=== PATIENT | male | born 1965 | race Caucasian/White ===

== ENCOUNTER 2018-05-18 14:03 | Emergency (ER) | payer MEDICAID, SELFPAY ==
[2018-05-18 14:07] VITALS: BP 126/71; PULSE 103; RESP 22; TEMP 36.9; O2SAT 98
[2018-05-18 14:14] VITALS: BP 120/80; BP 126/71; PULSE 103; PULSE 121; RESP 22; TEMP 36.9; O2SAT 98
--- NOTE | 2018-05-18 14:27 | ED.GENADUL_ITS ---
Disposition Clinical Impression: Diarrhea, Dehydration Disposition: HOME Condition: Stable Instructions: Acute Diarrhea (ED) Additional Instructions: follow up with your primary care provider in a week if symptoms continue if you have severe abdominal pain, or persistent vomit return to the emergency department Prescriptions: Ondansetron ODT [Zofran Odt] 4 mg PO Q8H PRN PRN #30 tabef PRN Reason: Nausea / Vomiting Medical Decision Making - Lab Data Results reviewed for labs ordered during visit: Yes - Medical Decision Making I suspect the patients diarrhea is from viral illness. He has no abdominal pain or distention and no n/v so doubt sbo at this time and no ruq pain or pain anywhere so doubt entities such as hepatitis, pancreatitis cholceystitis or other surgical pathology. No risk factors for c diff and given symptoms of diarrhea started stool studies not indicated. Will give IVF and nausea medicine and eval for electrolyte abnormalities and reassess. patients labs unremarkable, mild leukoctysos which could be from a viral gastroenteritis and mild low potassium and magnesium. STill no abdominal pain, do not feel further imaging indicated at this time. Will d/c home and have him f /u with pcp, return precautions given - Differential Diagnosis gastroenteritis, colitis, enteritis History of Present Illness - General Chief complaint: Nausea/Vomit/Diar Stated complaint: DEHYDRATION/DIARRHEA Time Seen by Provider: 05/18/18 14:06 Source: patient Mode of arrival: ambulatory Limitations: no limitations - History of Present Illness Initial comments: 53 yo male who states he has hx of gerd and intermittent stomach cramping comes in with loose stools that started today. He states and saturday he had nausea and this is not abnormal for him to get. He started feeling better last night but this morning has had watery stools and feels dehydrated so came here. Still has nausea now, no vomit, no fevers, no recent travel or abx use. He has no abdominal tenderness on exam or distention MD Complaint: diarrhea Onset/Timin -: hour(s) Location: abdomen Consistency: constant Improves with: none Worsens with: none Associated Symptoms: nausea/vomiting Treatments Prior to Arrival: none - Related Data Fluticasone Propionate [Flovent 110MCG] 2 puff IH BID PRN 04/05/14 Ibuprofen 800 mg PO TID PRN #20 tablet 07/07/14 Albuterol Sulfate [Proair Hfa] 1 - 2 puff IH Q6H PRN inhaler 01/07/17 Amitriptyline [Elavil] 10 mg PO HS 01/07/17 Pantoprazole Sodium [Protonix] 40 mg PO DAILY packet 01/07/17 Valacyclovir HCl [Valacyclovir] 2,000 mg PO BID PRN tab-cap 01/07/17 Vardenafil HCl [Levitra] 10 mg PO DAILY PRN tab-cap 01/07/17 Bacitracin 1 gm TP BID 14 Days oint...g. 03/30/18 Ondansetron ODT [Zofran Odt] 4 mg PO Q8H PRN PRN #30 tabef 05/18/18 Allergies Allergy/AdvReac Type Severity Reaction Status Date / Time No Known Allergies Allergy Unverified 03/30/18 17:17 Review of Systems Constitutional: denies: fever Respiratory: denies: shortness of breath Cardiovascular: denies: chest pain Gastrointestinal: nausea, diarrhea. denies: vomiting Skin: denies: rash Neurological: denies: headache Comment: All other systems reviewed and negative Past Medical History - Past Medical History Medical history: asthma - Social History Smoking status: never smoker Alcohol use: none Drug use: none General Exam - General Limitations: no limitations General appearance: alert, in no apparent distress - Head Head exam: Present: atraumatic - Eye Eye exam: Present: normal apperance - ENT ENT exam: Present: mucous membranes moist - Neck Neck exam: Present: normal inspection - Respiratory Respiratory exam: Absent: respiratory distress - Cardiovascular Cardiovascular Exam: Present: regular rate, other (Hr 88 on my exam) - GI/Abdominal GI/Abdominal exam: Present: soft. Absent: distended, tenderness, guarding, rebound, rigid - Extremities Exam Extremities exam: Present: normal inspection. Absent: pedal edema - Neurological Exam Neurological exam: Present: alert, oriented X3 - Skin Skin exam: Present: warm Course Vital Signs - 24 hr 05/18/18 05/18/18 14:07 14:14 Temperature 98.4 F 98.4 F Pulse 103 H 103 H Pulse [Standing 121 H ] Respiratory 22 22 Rate Blood Pressure 126/71 126/71 Blood Pressure 120/80 [Standing] Pulse Oximetry 98 98
[2018-05-18] MEDS: Ondansetron 4 MG/2 ML VIAL IVP (14:42)
[2018-05-18] MEDS: Normal Saline 1,000 ML 1000 ML IV (14:42)
[2018-05-18 15:00] LABS: Abs Immature Grans 0.06 k/cumm (0.0-0.09); Absolute Basophil Count 0.04 k/cumm (0.0-0.2); Absolute Eosinophil Count 0.07 k/cumm (0.0-0.7); Absolute Monocyte Count 1.54 k/cumm (0.11-0.7); Absolute Neutrophil Count 11.89 k/cumm (1.2-6.7); Basophils % 0.3; Eosinophils % 0.5; HCT 46.2 % (40.0-50.0); HGB 16.1 g/dL (13.5-17.5); Immature Grans % 0.4; Lymphocytes % 6.2; Mean Corp. HGB Concentration 34.8 g/dL (32.0-36.0); Mean Corpuscular Hemoglobin 30.8 pg (27.0-33.0); Mean Corpuscular Volume 88.5 fL (80-95); Mean Platelet Volume 9.9 fL (8.0-11.0); Monocytes % 10.6; Platelet Count 310 x1000/uL (130-400); RBC 5.22 m/cumm (4.50-6.00); RBC Distribution Width 13.4 % (11.8-14.1)
[2018-05-18 15:13] LABS: ALT 22 U/L (12-78); AST 17 U/L (15-37); Albumin 3.9 g/dL (3.4-5.0); Alkaline Phosphatase 84 U/L (46-116); Anion Gap 11.4 mmol/L (3-11); BUN 17 mg/dL (7-18); Bilirubin, Total 1.9 mg/dL (0.2-1.0); CO2 24.6 mmol/L (21.0-32.0); CREATININE 0.74 mg/dL (0.70-1.30); Calcium 8.5 mg/dL (8.5-10.1); Chloride 102 mmol/L (98-107); Glucose 101 mg/dL (70-100); Magnesium 1.6 mg/dL (1.8-2.4); Potassium 3.2 mmol/L (3.5-5.1); Sodium 138 mmol/L (136-145)
[2018-05-18 15:24] LABS: Diff Comment Diff Reviewed; RBC Morphology Normal
[2018-05-18 15:33] VITALS: BP 120/62; PULSE 80; RESP 16; TEMP 37; O2SAT 98
== END 2018-05-18 15:38 | disposition home or self-care (01) ==
PROVIDERS: Emergency Provider Emergency Medicine; PCP Nurse Practitioner Family
DX: R19.7 Diarrhea, unspecified (principal); E86.0 Dehydration
CPT/HCPCS: 36415; 80053; 96361; 96374; 99284; 83735; 85025; J2405

== ENCOUNTER 2018-07-16 07:32 | Inpatient (IN) | payer MEDICAID, SELFPAY ==
[2018-07-16 07:39] VITALS: BP 136/74; PULSE 71; RESP 22; TEMP 36.4; O2SAT 100
--- NOTE | 2018-07-16 08:11 | W.ED.GENAD ---
Discharge Plan Disposition Patient Disposition: [facility] INPATIENT Discharge Details Chief Complaint: Nk/Back Pain Clinical Impression: Nephrolithiasis Reason For Visit: NEPHROLITHIASIS Admit Date/Time: 07/16/18 14:19 Admit Provider: Luis White Attending Provider: Luis White Primary Care Provider: Alexia Perez ED Provider: Natalia Matthews Discharge Data Discharge Date/Time-TO BE ENTERED AT DEPARTURE: 07/16/18 15:12 Medical Decision Making Dennis Braun is a 53-year-old man with history of asthma and chronic low back pain present who presented to the emergency department this morning with exacerbation of his usual back pain that woke him from sleep at 1:00 this morning; features are exactly typical of his usual acute on chronic low back pain exacerbations. On exam patient is well and nontoxic-appearing. He is able to walk slowly but steadily. Motor function of his lower extremities is 5 out of 5, and sensation of his lower extremities is intact and symmetric. Concern for acute on chronic lower back pain. Exam/history not consistent with cord compression/cauda equina syndrome, sepsis, acute emergent intra-abdominal process. Plan for steroid burst, Flexeril, post void residual, ua. Patient with moderate blood on UA. Patient reports history of kidney stones in the past, but states that this does not feel typical of his usual kidney stones. Patient reports mild to moderate bilateral CVA tenderness on repeat exam. Given vomiting, hematuria will plan for CT for rule out kidney stone. CT positive for 4.5 right ureterolithiasis with dilatation of the ureter and bilateral severe hydronephrosis. Plan for IV fluid hydration, IV pain control, screening labs, urology consult. Creatinine within normal limits. I discussed patient presentation results with Dr. golden of urology [facility], who recommended that patient had stenting done. There is OR availability and very tomorrow morning. Dr. golden stated that there is no availability for transfer to [facility] given lack of beds, and that it would be appropriate for procedure to be performed here tomorrow. Plan for admission given vomiting and the pain for further monitoring. Dr. Woods's office consulted and made aware, he is not available for consult today. Medical Records Medical records reviewed: Yes I reviewed the patient's medical records. HPI General Mode of arrival: ambulatory. Date/Time Provider Initiated Documentation: 07/16/18 08:11. Limitations to Documentation: no limitations. Information obtained by: patient. HPI Narrative: Dennis Braun is a 53-year-old man with history of asthma and chronic low back presenting to the emergency department with back pain. 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 He reports that he has had intermittent exacerbations of his pain. Patient reports that he woke up at 1:00 this morning with pain in his lower back, worse on the right side. He reports the pain is exactly typical in severity, location, and quality as his usual exacerbations of back pain. He reports the last time his back pain was like this it was 4 years ago. He completed a course of physical therapy for low back pain approximately 6 months ago. 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 Patient reports that he has taken oxygen this morning for the pain and no other pain meds. He reports that he vomited this morning after taking the naproxen, and states that he has had vomiting the past from his back pain. He denies any other pain, fevers, shortness of breath, cough, rash, numbness, tingling, weakness the extremities. He denies any changes in urinary function. Patient reports that he had 2 bowel movements this morning that were normal. Denies IV drug use or being immunocompromised. No blood thinners. Previously in his usual state of health. Has been eating and drinking normally. Related Data Home Medications Medication Instructions Recorded Confirmed fluticasone [Flovent HFA] 2 puff INHALATION BID PRN 04/05/14 07/16/18 albuterol sulfate [ProAir HFA] 1 - 2 puff INHALATION Q6H PRN 01/07/17 07/16/18 inhaler amitriptyline 10 mg PO HS 01/07/17 05/18/18 pantoprazole [Protonix] 40 mg PO DAILY packet 01/07/17 07/16/18 valacyclovir 2,000 mg PO BID PRN tab-cap 01/07/17 07/16/18 vardenafil [Levitra] 10 mg PO DAILY PRN tab-cap 01/07/17 07/16/18 ondansetron 4 mg PO Q8H PRN PRN #30 tabef 05/18/18 07/16/18 naproxen 500 mg PO BID 07/16/18 07/16/18 Previous Rx's Medication Instructions Recorded ondansetron 4 mg PO Q8H PRN PRN #30 tabef 05/18/18 Allergies Allergy/AdvReac Type Severity Reaction Status Date / Time No Known Allergies Allergy Unverified 07/16/18 07:41 General Stated Complaint: Nk/Back Pain FRANKIE: 4 Review of Systems Review of Systems Constitutional: denies fevers Eyes: denies eye pain ENT: denies facial pain, dental pain, sore throat Cardiovascular: denies chest pain, edema Respiratory: denies SOB, cough GI: denies abdominal pain, vomiting, diarrhea : denies flank pain, dysuria MSK: denies neck pain, arthralgias, myalgias; reports back pain Skin: denies rash Neuro: denies headaches, lightheadedness, weakness PFSH Family History Mother Colon cancer Father Myocardial infarction CHF (congestive heart failure) Sister Melanoma Medical History Anxiety Asthma Chronic low back pain Cold sore Depression GERD (gastroesophageal reflux disease) H/O steroid therapy Hemorrhoids, external Kidney stones Knee pain, bilateral Pre-hypertension Wheezing Social History household members: other details: lives alone lives independently: Yes 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 Smoking/Tobacco Use Status: Former Tobacco Use pack-years: 2 alcohol intake: never substance use type: does not use Surgical History H/O blepharoplasty (Acute) History of kidney surgery (Acute) History of testicular surgery (Acute) Exam Narrative Exam Narrative: Constitutional: well and non-toxic but uncomfortable appearing, pleasant, conversing normally HENT: head atraumatic, normocephalic normal inspection, mucous membranes moist Eyes: conjunctiva normal, sclera normal, pupils 3mm b/l Neck: no stridor, normal ROM, trachea midline Chest: normal inspection Resp: normal work of breathing, LCTAB Cardio: normal rate, normal rhythm, no murmur appreciated GI: abdomen soft, non-tender, non-distended Back: normal inspection, no rash, NTTP. straight leg test pos on right Skin: warm, dry, normal color, no rash Neuro: alert, not altered, grossly non-focal, normal tone, motor 5/5 b/l LEs, sensation intact and symmetric b/l LEs Ext: no edema Psych: normal mood, normal affect, normal behavior Course Vital Signs Temperature 36.4 C L 07/16/18 07:39 Pulse 71 07/16/18 07:39 Respiratory Rate 22 07/16/18 07:39 Blood Pressure 136/74 07/16/18 07:39 Pulse Oximetry 100 07/16/18 07:39 Temperature 36.4 C L 07/16/18 07:39 Temperature Source Skin 07/16/18 07:39 Pulse 71 07/16/18 07:39 Respiratory Rate 22 07/16/18 07:39 Respiratory Effort 07/16/18 07:44 Blood Pressure 136/74 07/16/18 07:39 Blood Pressure Position Sitting 07/16/18 07:39 Pulse Oximetry 100 07/16/18 07:39 Oxygen Delivery Method Room Air 07/16/18 07:39 Oxygen Flow Rate 0 07/16/18 07:39 Pain Level 8 07/16/18 07:44
--- NOTE | 2018-07-16 08:30 | ED.GENADUL_ITS ---
Discharge Plan Disposition Patient Disposition: [facility] INPATIENT Discharge Details Chief Complaint: Nk/Back Pain Clinical Impression: Nephrolithiasis Reason For Visit: NEPHROLITHIASIS Admit Date/Time: 07/16/18 14:19 Admit Provider: Luis White Attending Provider: Luis White Primary Care Provider: Alexia Perez ED Provider: Natalia Matthews Discharge Data Discharge Date/Time-TO BE ENTERED AT DEPARTURE: 07/16/18 15:12 Medical Decision Making Dennis Braun is a 53-year-old man with history of asthma and chronic low back pain present who presented to the emergency department this morning with exacerbation of his usual back pain that woke him from sleep at 1:00 this morning; features are exactly typical of his usual acute on chronic low back pain exacerbations. On exam patient is well and nontoxic-appearing. He is able to walk slowly but steadily. Motor function of his lower extremities is 5 out of 5, and sensation of his lower extremities is intact and symmetric. Concern for acute on chronic lower back pain. Exam/history not consistent with cord compression/cauda equina syndrome, sepsis, acute emergent intra-abdominal process. Plan for steroid burst, Flexeril, post void residual, ua. Patient with moderate blood on UA. Patient reports history of kidney stones in the past, but states that this does not feel typical of his usual kidney stones. Patient reports mild to moderate bilateral CVA tenderness on repeat exam. Given vomiting, hematuria will plan for CT for rule out kidney stone. CT positive for 4.5 right ureterolithiasis with dilatation of the ureter and bilateral severe hydronephrosis. Plan for IV fluid hydration, IV pain control, screening labs, urology consult. Creatinine within normal limits. I discussed patient presentation results with Dr. golden of urology [facility], who recommended that patient had stenting done. There is OR availability and very tomorrow morning. Dr. golden stated that there is no availability for transfer to [facility] given lack of beds, and that it would be appropriate for procedure to be performed here tomorrow. Plan for admission given vomiting and the pain for further monitoring. Dr. Woods's office consulted and made aware, he is not available for consult today. Medical Records Medical records reviewed: Yes I reviewed the patient's medical records. HPI General Mode of arrival: ambulatory . Date/Time Provider Initiated Documentation: 07/16/18 08:11 . Limitations to Documentation: no limitations . Information obtained by: patient . HPI Narrative: Dennis Braun is a 53-year-old man with history of asthma and chronic low back presenting to the emergency department with back pain. 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 He reports that he has had intermittent exacerbations of his pain. Patient reports that he woke up at 1:00 this morning with pain in his lower back , worse on the right side. He reports the pain is exactly typical in severity, location, and quality as his usual exacerbations of back pain. He reports the last time his back pain was like this it was 4 years ago. He completed a course of physical therapy for low back pain approximately 6 months ago. 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 Patient reports that he has taken oxygen this morning for the pain and no other pain meds. He reports that he vomited this morning after taking the naproxen, and states that he has had vomiting the past from his back pain. He denies any other pain, fevers, shortness of breath , cough, rash, numbness, tingling, weakness the extremities. He denies any changes in urinary function. Patient reports that he had 2 bowel movements this morning that were normal. Denies IV drug use or being immunocompromised. No blood thinners. Previously in his usual state of health. Has been eating and drinking normally. Related Data Home Medications Medication Instructions Recorded Confirmed fluticasone [Flovent HFA] 2 puff INHALATION BID PRN 04/05/14 07/16/18 albuterol sulfate [ProAir HFA] 1 - 2 puff INHALATION Q6H PRN 01/07/17 07/16/18 inhaler amitriptyline 10 mg PO HS 01/07/17 05/18/18 pantoprazole [Protonix] 40 mg PO DAILY packet 01/07/17 07/16/18 valacyclovir 2,000 mg PO BID PRN tab-cap 01/07/17 07/16/18 vardenafil [Levitra] 10 mg PO DAILY PRN tab-cap 01/07/17 07/16/18 ondansetron 4 mg PO Q8H PRN PRN #30 tabef 05/18/18 07/16/18 naproxen 500 mg PO BID 07/16/18 07/16/18 Previous Rx's Medication Instructions Recorded ondansetron 4 mg PO Q8H PRN PRN #30 tabef 05/18/18 Allergies Allergy/AdvReac Type Severity Reaction Status Date / Time No Known Allergies Allergy Unverified 07/16/18 07:41 General Stated Complaint: Nk/Back Pain FRANKIE: 4 Review of Systems Review of Systems Constitutional: denies fevers Eyes: denies eye pain ENT: denies facial pain, dental pain, sore throat Cardiovascular: denies chest pain, edema Respiratory: denies SOB, cough GI: denies abdominal pain, vomiting, diarrhea : denies flank pain, dysuria MSK: denies neck pain, arthralgias, myalgias; reports back pain Skin: denies rash Neuro: denies headaches, lightheadedness, weakness PFSH Family History Mother Colon cancer Father Myocardial infarction CHF (congestive heart failure) Sister Melanoma Medical History Anxiety Asthma Chronic low back pain Cold sore Depression GERD (gastroesophageal reflux disease) H/O steroid therapy Hemorrhoids, external Kidney stones Knee pain, bilateral Pre-hypertension Wheezing Social History household members: other details: lives alone lives independently: Yes 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 Smoking/Tobacco Use Status: Former Tobacco Use pack-years: 2 alcohol intake: never substance use type: does not use Surgical History H/O blepharoplasty (Acute) History of kidney surgery (Acute) History of testicular surgery (Acute) Exam Narrative Exam Narrative: Constitutional: well and non-toxic but uncomfortable appearing, pleasant, conversing normally HENT: head atraumatic, normocephalic normal inspection, mucous membranes moist Eyes: conjunctiva normal, sclera normal, pupils 3mm b/l Neck: no stridor, normal ROM, trachea midline Chest: normal inspection Resp: normal work of breathing, LCTAB Cardio: normal rate, normal rhythm, no murmur appreciated GI: abdomen soft, non-tender, non-distended Back: normal inspection, no rash, NTTP. straight leg test pos on right Skin: warm, dry, normal color, no rash Neuro: alert, not altered, grossly non-focal, normal tone, motor 5/5 b/l LEs, sensation intact and symmetric b/l LEs Ext: no edema Psych: normal mood, normal affect, normal behavior Course Vital Signs Temperature 36.4 C L 07/16/18 07:39 Pulse 71 07/16/18 07:39 Respiratory Rate 22 07/16/18 07:39 Blood Pressure 136/74 07/16/18 07:39 Pulse Oximetry 100 07/16/18 07:39 Temperature 36.4 C L 07/16/18 07:39 Temperature Source Skin 07/16/18 07:39 Pulse 71 07/16/18 07:39 Respiratory Rate 22 07/16/18 07:39 Respiratory Effort 07/16/18 07:44 Blood Pressure 136/74 07/16/18 07:39 Blood Pressure Position Sitting 07/16/18 07:39 Pulse Oximetry 100 07/16/18 07:39 Oxygen Delivery Method Room Air 07/16/18 07:39 Oxygen Flow Rate 0 07/16/18 07:39 Pain Level 8 07/16/18 07:44
[2018-07-16] MEDS: predniSONE 20 MG TAB 40 MG PO (08:46)
[2018-07-16] MEDS: Acetaminophen 500 MG TAB 1000 MG PO (08:46)
[2018-07-16 08:58] LABS: Bilirubin Negative (Negative); Blood Moderate (Negative); Clarity Sl Cloudy; Glucose Negative (Negative); Ketones Trace mg/dL (Negative); Leukocyte Esterase Negative (Negative); Nitrite Negative (Negative); Specific Gravity >= 1.030 (1.005-1.025); Urobilinogen 0.2 EU/dL (Up TO 0.2)
[2018-07-16 09:04] LABS: Bacteria Rare HPF (Negative); C & S Indicated? No; Casts Negative LPF (Negative); Crystals Negative HPF (Negative); Epithelial Cells Negative HPF (Negative); Mucus Heavy (Negative); WBC 0-2 HPF (0-5)
--- NOTE | 2018-07-16 09:09 | DI.CT_ITS ---
SYMPTOMS/DIAGNOSIS: BILATERAL LOW BACK PAIN, HEMATURIA, ? STONE RENAL COLIC CT: A noncontrast enhanced CT examination was performed according to the usual protocol. There is considerable dilatation of the right ureter down to the level of a 4.5 mm distal ureteral calculus. The left ureter appears intact. There is no evidence of left ureterolithiasis. The mid and inferior portions of the liver, gallbladder, pancreas and spleen are intact. There is no evidence of bowel obstruction. A moderate quantity of scattered feces is noted throughout the colon. There is nothing to suggest an acute appendix. The bladder is decompressed. The prostate is somewhat enlarged. There is no evidence of free air or free fluid in the intraperitoneal space. There is no evidence of an aortic aneurysm. There are mild degenerative changes involving the lumbar spine. SUMMARY: Moderately severe bilateral hydronephrosis and nephrolithiasis. There is dilatation of the right ureter down to the level of a 4.5 mm distal ureteral calculus. There is no evidence of a left ureteral calculus or ureterectasis.
[2018-07-16 10:43] LABS: Abs Immature Grans 0.05 k/cumm (0.0-0.09); Absolute Basophil Count 0.04 k/cumm (0.0-0.2); Absolute Eosinophil Count 0.01 k/cumm (0.0-0.7); Basophils % 0.3; Eosinophils % 0.1; HCT 41.3 % (40.0-50.0); HGB 14.4 g/dL (13.5-17.5); Immature Grans % 0.3; Lymphocytes % 4.2; Mean Corp. HGB Concentration 34.9 g/dL (32.0-36.0); Mean Corpuscular Hemoglobin 30.3 pg (27.0-33.0); Mean Corpuscular Volume 86.9 fL (80-95); Mean Platelet Volume 9.6 fL (8.0-11.0); Monocytes % 7.5; Neutrophils % 87.6; Platelet Count 279 x1000/uL (130-400); RBC 4.75 m/cumm (4.50-6.00); RBC Distribution Width 13.4 % (11.8-14.1); White Blood Cell Count 14.85 k/cumm (4.4-10.8)
[2018-07-16 10:45] LABS: Absolute Lymphocyte Count 0.62 k/cumm (1.2-3.4); Absolute Monocyte Count 1.11 k/cumm (0.11-0.7); Absolute Neutrophil Count 13.01 k/cumm (1.2-6.7)
[2018-07-16] MEDS: Normal Saline 1,000 ML 1000 ML IV (10:48)
[2018-07-16] MEDS: Ondansetron 4 MG/2 ML VIAL IVP ×2 (11:01→13:54)
[2018-07-16 11:04] LABS: ALT 20 U/L (12-78); AST 14 U/L (15-37); Albumin 3.7 g/dL (3.4-5.0); Alkaline Phosphatase 76 U/L (46-116); Anion Gap 8.7 mmol/L (3-11); BUN 24 mg/dL (7-18); Bilirubin, Total 1.2 mg/dL (0.2-1.0); CO2 25.3 mmol/L (21.0-32.0); CREATININE 0.98 mg/dL (0.70-1.30); Calcium 8.1 mg/dL (8.5-10.1); Chloride 106 mmol/L (98-107); Glucose 115 mg/dL (70-100); Sodium 140 mmol/L (136-145); Total Protein 6.2 g/dL (6.4-8.2)
[2018-07-16] MEDS: HYDROmorphone 2 MG/ML VIAL 1 MG IVP (11:23)
[2018-07-16 15:39] VITALS: BP 121/76; PULSE 80; RESP 20; TEMP 36.4; O2SAT 96
--- NOTE | 2018-07-16 16:15 | W.PM.HP.N ---
Date of service: 07/16/18 Time of Service: 16:16 Assessment and Plan (1) Nephrolithiasis: Current visit: Yes Status: Chronic Bilateral, noted on Renal CT with bilateral hydronephrosis. The plan is for him to go to the OR tomorrow for stone extraction and stent placement with Dr. Woods. He has analgesics and antiemetics available for as needed use, IV fluids and he will be NPO after midnight for the procedure tomorrow. He will need further evaluation of the bilateral hydronephrosis. (2) GERD (gastroesophageal reflux disease): Current visit: Yes Status: Chronic Continue PPI therapy. (3) Depression: Current visit: Yes Status: Chronic He has taken antidepressants in the past. He currently takes amitriptyline PRN for sleep. (4) Asthma: Current visit: Yes Status: Chronic He describes asthma flares with dust and leaves. He has not used rescue inhaler in several months. (5) Back pain, chronic: Current visit: Yes Status: Acute He takes naproxen. Recently had PT for spasms. Not severe at present. Continue to monitor. (6) Heart murmur: Current visit: Yes Status: Acute He does not recall having a history of heart murmur. Further evaluation as an outpatient recommended. Will review outpatient records to determine if this has been documented in the past. (7) Discharge planning issues: Current visit: Yes Status: Acute He is a full code. This case was discussed with Dr. White who is in agreement. (8) DVT prophylaxis: Current visit: Yes Status: Acute Hold on lovenox for now, pending OR tomorrow. SCDs for DVT prophylaxis. History of Present Illness Chief Complaint: Back pain, N/V Narrative: Dennis Braun is a very pleasant 53-year-old male with a past medical history of nephrolithiasis (remote), chronic back pain, GERD and asthma. He presented to the emergency department today after he awoke early this morning with severe back pain. He does have chronic back pain and felt that this was related to back spasms which prompted his presentation to the emergency department. He went on to develop nausea and vomiting. He had no dysuria. He has urinary frequency at baseline. He believes that he had some hematuria over the last couple of weeks. In the emergency department he was noted to have moderate blood on urinalysis. He was noted to have mild to moderate bilateral CVA tenderness on exam. He was referred for Renal CT to rule out kidney stones. Renal CT revealed Moderately severe bilateral hydronephrosis and nephrolithiasis. There is dilatation of the right ureter down to the level of a 4.5 mm distal ureteral calculus. There is no evidence of a left ureteral calculus or ureterectasis. He was seen by Urology in the ED. The plan is for him to be admitted to the Med/surg floor for further treatment and management. He will go to the OR tomorrow to have the stone removed and stent placed by Dr. Woods. He will be NPO after midnight for the procedure. Review of Systems Constitutional Denies chills and Denies fever(s) Eyes Denies change in vision (wears glasses) Cardiovascular Denies chest pain, Denies rapid heart rate, Denies pedal edema, Denies palpitations and Denies dyspnea Respiratory Denies cough, Denies dyspnea and Denies wheezing Gastrointestinal Denies change in bowel habits, Reports nausea, Reports vomiting and Reports other (poor appetite, has not been eating or drinking today.) Genitourinary Reports hematuria (Has noticed some mild hematuria over the last couple of weeks.) and Reports flank pain (across back and around to abdomen.) Musculoskeletal Reports back pain (chronic, recently had PT for back pain. Takes naproxen which helps.) and Reports stiffness (knees. ) Psychiatric Reports anxiety and Reports depression (tried antidepressant but made symptoms worse.) Endocrine Denies palpitations Allergic/Immunologic Denies wheezing and Reports other (asthma flares with dust and leaves.) PFSH Family History Mother Colon cancer Father Myocardial infarction CHF (congestive heart failure) Sister Melanoma Medical History Anxiety Asthma Chronic low back pain Cold sore Depression GERD (gastroesophageal reflux disease) H/O steroid therapy Hemorrhoids, external Kidney stones Knee pain, bilateral Pre-hypertension Wheezing Social History household members: other details: lives alone lives independently: Yes 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 Smoking/Tobacco Use Status: Former Tobacco Use pack-years: 2 alcohol intake: never substance use type: does not use Surgical History H/O blepharoplasty (Acute) History of kidney surgery (Acute) History of testicular surgery (Acute) Meds Home Medications Medication Instructions Recorded Confirmed Type fluticasone [Flovent HFA] 2 puff INHALATION BID PRN 04/05/14 07/16/18 History albuterol sulfate [ProAir HFA] 1 - 2 puff INHALATION Q6H PRN 01/07/17 07/16/18 History inhaler amitriptyline 10 mg PO HS 01/07/17 05/18/18 History pantoprazole [Protonix] 40 mg PO DAILY packet 01/07/17 07/16/18 History valacyclovir 2,000 mg PO BID PRN tab-cap 01/07/17 07/16/18 History vardenafil [Levitra] 10 mg PO DAILY PRN tab-cap 01/07/17 07/16/18 History ondansetron 4 mg PO Q8H PRN PRN #30 tabef 05/18/18 07/16/18 Rx naproxen 500 mg PO BID 07/16/18 07/16/18 History Allergies Allergy/AdvReac Type Severity Reaction Status Date / Time No Known Allergies Allergy Unverified 07/16/18 07:41 Exam Const General: cooperative, healthy appearing, comfortable and no acute distress Nutritional Appearance: well nourished Orientation: alert, awake and oriented x3 HENMT Head: normocephalic and atraumatic Mouth: moist mucous membranes Eyes Other: Wears glasses. Conjunctiva noninjected, sclerae nonicteric. Neck Neck: supple and no JVD Resp Effort & Inspection: normal respiratory effort Auscultation: clear to auscultation bilaterally Cardio Rate: regular rate and not tachycardic Heart Sounds: murmur (2/6 systolic murmur heard best at the right sternal border. ) Pulses: normal peripheral pulses GI Palpation: soft, no masses and nontender Auscultation: normal bowel sounds General: CVA tenderness (no CVA tenderness to left, mild CVA tenderness on right.) Skin General skin exam: no rashes or lesions noted Extrem General: no clubbing, cyanosis or edema Results Labs : 07/16/18 10:35 07/16/18 10:35 Laboratory Results - last 24 hr 07/16/18 07/16/18 07/16/18 08:39 10:35 10:35 WBC 14.85 H RBC 4.75 Hgb 14.4 Hct 41.3 MCV 86.9 MCH 30.3 MCHC 34.9 RDW 13.4 Plt Count 279 MPV 9.6 Immature Gran % 0.3 Neutrophils % 87.6 Lymphocytes % 4.2 Monocytes % 7.5 Eosinophils % 0.1 Basophils % 0.3 Absolute Neutrophils 13.01 H Absolute Lymphocytes 0.62 L Absolute Monocytes 1.11 H Absolute Eosinophils 0.01 Absolute Basophils 0.04 Sodium 140 Potassium 4.0 Chloride 106 Carbon Dioxide 25.3 Anion Gap 8.7 BUN 24 H Creatinine 0.98 Estimated GFR/1.73 m2 >= 60.00 Glucose 115 H Calcium 8.1 L Total Bilirubin 1.2 H AST 14 L ALT 20 Alkaline Phosphatase 76 Total Protein 6.2 L Albumin 3.7 Urine Color Yellow Urine Clarity Sl cloudy Urine pH 6.0 Ur Specific [place] >= 1.030 H Urine Protein Negative Urine Ketones Trace H Urine Blood Moderate H Urine Nitrite Negative Urine Bilirubin Negative Urine Urobilinogen 0.2 Ur Leukocyte Esterase Negative Urine RBC 10-20 H Urine WBC 0-2 Ur Epithelial Cells Negative Urine Crystals Negative Urine Bacteria Rare Urine Casts Negative Urine Mucus Heavy Ur Culture Indicated? No Urine Glucose Negative Last Vital Signs Temp 36.4 C L 07/16/18 07:39 Pulse 71 07/16/18 07:39 Resp 22 07/16/18 07:39 BP 136/74 07/16/18 07:39 Pulse Ox 100 07/16/18 07:39
[2018-07-16] MEDS: Metoclopramide 10 MG/2 ML VIAL IVP (16:40)
[2018-07-16] MEDS: Normal Saline 1,000 ML 150 ML IV ×2 (16:44→22:38)
[2018-07-16 23:50] VITALS: BP 108/60; PULSE 86; RESP 18; TEMP 37.3; O2SAT 98
[2018-07-17] MEDS: Normal Saline 1,000 ML 150 ML IV ×2 (05:39→11:32)
[2018-07-17 07:08] LABS: Abs Immature Grans 0.04 k/cumm (0.0-0.09); Absolute Basophil Count 0.02 k/cumm (0.0-0.2); Absolute Eosinophil Count 0.08 k/cumm (0.0-0.7); Absolute Lymphocyte Count 1.57 k/cumm (1.2-3.4); Absolute Monocyte Count 1.36 k/cumm (0.11-0.7); Absolute Neutrophil Count 7.56 k/cumm (1.2-6.7); Basophils % 0.2; Eosinophils % 0.8; HCT 37.2 % (40.0-50.0); HGB 12.6 g/dL (13.5-17.5); Immature Grans % 0.4; Lymphocytes % 14.8; Mean Corp. HGB Concentration 33.9 g/dL (32.0-36.0); Mean Corpuscular Hemoglobin 30.1 pg (27.0-33.0); Mean Corpuscular Volume 88.8 fL (80-95); Mean Platelet Volume 9.9 fL (8.0-11.0); Monocytes % 12.8; Platelet Count 259 x1000/uL (130-400); RBC 4.19 m/cumm (4.50-6.00); RBC Distribution Width 13.5 % (11.8-14.1); White Blood Cell Count 10.63 k/cumm (4.4-10.8)
[2018-07-17 07:14] LABS: Anion Gap 10.6 mmol/L (3-11); BUN 14 mg/dL (7-18); CO2 23.4 mmol/L (21.0-32.0); CREATININE 0.69 mg/dL (0.70-1.30); Calcium 7.5 mg/dL (8.5-10.1); Chloride 108 mmol/L (98-107); Glucose 96 mg/dL (70-100); Potassium 3.6 mmol/L (3.5-5.1); Sodium 142 mmol/L (136-145)
[2018-07-17] MEDS: Pantoprazole 40 MG TABCR PO (07:41)
[2018-07-17] MEDS: Tamsulosin 0.4 MG CAPCR PO (07:42)
[2018-07-17 07:49] VITALS: BP 112/64; PULSE 74; RESP 20; TEMP 36.8; O2SAT 97
--- NOTE | 2018-07-17 08:05 | PDOC.CMIN ---
- If Service Date Differs Date of service: 07/17/18 Time of Service: 08:05 Care Management Initial Assess REASON FOR HOSPITALIZATION:: Nephrolithiasis PAST MEDICAL HISTORY/PAST SURGICAL HISTORY:: Anxiety. Asthma. Chronic low back pain. Cold sore. Depression. GERD (gastroesophageal reflux disease). H/O steroid therapy. Hemorrhoids, external. Kidney stones. Knee pain, bilateral. Pre-hypertension. Wheezing. H/O blepharoplasty (Acute). History of kidney surgery (Acute). History of testicular surgery (Acute) PREVIOUS FUNCTIONAL STATUS/SOCIAL/FAMILY SUPPORTS:: Dennis resides alone in [place]. 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 Dennis is able to manage ADL's and drives independently. CURRENT FUNCTIONAL STATUS:: Currently Dennis is lying in bed this morning, pleasant and open to discussion. ADVANCE DIRECTIVES:: None on file Has patient been provided with information about the portal?: Yes Did the patient sign up for the portal?: No CODE STATUS:: Full Code INSURANCE COVERAGE / FINANCIAL ISSUES:: Medicaid CURRENT HOME/COMMUNITY SERVICES/EQUIPMENT:: Currently Dennis has no services or medical equipment in the community. PRIMARY CARE PHYSICIAN:: Alexia Perez POTENTIAL DISCHARGE NEEDS:: F/U appointment with Dr. Woods PATIENT/FAMILY EDUCATION NEEDS:: Review DC instructions, any limitations and ongoing DC planning discussion. Discuss Ask Me Three ANTICIPATED BARRIERS TO DISCHARGE:: None identified at this time. TRANSPORTATION:: Via private vehicle with family PLAN:: Dennis will return home with no anticipated services. He will F/U with Dr. Woods and plan of care as prescribed. Dennis to transport via private vehicle.
--- NOTE | 2018-07-17 11:43 | INITIAL_ITS ---
- If Service Date Differs Date of service: 07/17/18 Time of Service: 08:05 Care Management Initial Assess REASON FOR HOSPITALIZATION:: Nephrolithiasis PAST MEDICAL HISTORY/PAST SURGICAL HISTORY:: Anxiety. Asthma. Chronic low back pain. Cold sore. Depression. GERD (gastroesophageal reflux disease). H/ O steroid therapy. Hemorrhoids, external. Kidney stones. Knee pain, bilateral. Pre-hypertension. Wheezing. H/O blepharoplasty (Acute). History of kidney surgery (Acute). History of testicular surgery (Acute) PREVIOUS FUNCTIONAL STATUS/SOCIAL/FAMILY SUPPORTS:: Dennis resides alone in [place]. 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 Dennis is able to manage ADL's and drives independently. CURRENT FUNCTIONAL STATUS:: Currently Dennis is lying in bed this morning, pleasant and open to discussion. ADVANCE DIRECTIVES:: None on file Has patient been provided with information about the portal?: Yes Did the patient sign up for the portal?: No CODE STATUS:: Full Code INSURANCE COVERAGE / FINANCIAL ISSUES:: Medicaid CURRENT HOME/COMMUNITY SERVICES/EQUIPMENT:: Currently Dennis has no services or medical equipment in the community. PRIMARY CARE PHYSICIAN:: Alexia Perez POTENTIAL DISCHARGE NEEDS:: F/U appointment with Dr. Woods PATIENT/FAMILY EDUCATION NEEDS:: Review DC instructions, any limitations and ongoing DC planning discussion. Discuss Ask Me Three ANTICIPATED BARRIERS TO DISCHARGE:: None identified at this time. TRANSPORTATION:: Via private vehicle with family PLAN:: Dennis will return home with no anticipated services. He will F/U with Dr. Woods and plan of care as prescribed. Dennis to transport via private vehicle.
--- NOTE | 2018-07-17 12:20 | W.UROLOGYCON ---
Date of service: 07/17/18 Time of Service: 12:21 History of Present Illness Chief Complaint: Right ureteral stone Narrative: This is a 53-year-old gentleman who has a past history significant for urolithiasis. He tells me that he had open surgery at the age of 18 for kidney stones. The procedure was done when he was living in [place]. He actually tells me he has had 2 procedures. One incision was made in the back. The second incision was made in the left lower quadrant. He believes his stones were calcium based. He presented to the emergency room with some worsening left back pain. He does have chronic back disease and he thought it was just an exacerbation of of muscle spasms. While he was in the emergency room, the pain shifted to the right lower quadrant. It was associated with nausea and vomiting. He was evaluated with a stone protocol CT scan and was found to have a right distal ureteral stone. In retrospect, the patient tells me he has had occasional blood in the urine for the past 6 weeks. He has also had worsening back pain but he did not recognize the back pain as being related to renal colic. He has no known history of gout or hyperparathyroid disease Review of Systems Review of Systems He has no fever or chills He has no chest pain or palpitations He has no cough or sputum production He has indigestion but no current nausea or vomiting He has no known bleeding disorder PFSH Family History Mother Colon cancer Father Myocardial infarction CHF (congestive heart failure) Sister Melanoma Medical History Anxiety Asthma Chronic low back pain Cold sore Depression GERD (gastroesophageal reflux disease) H/O steroid therapy Hemorrhoids, external Kidney stones Knee pain, bilateral Pre-hypertension Wheezing Social History household members: other details: lives alone lives independently: Yes 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 Smoking/Tobacco Use Status: Former Tobacco Use pack-years: 2 alcohol intake: never substance use type: does not use Surgical History H/O blepharoplasty (Acute) History of kidney surgery (Acute) History of testicular surgery (Acute) Exam Narrative Exam Narrative: He looks quite comfortable at this point in time he is not in acute distress He does not appear septic or toxic His abdomen is soft with no guarding or rebound tenderness there is a small left lower quadrant incision as well as a vertical incision in the left lumbar region He is awake, alert and oriented I reviewed his CT scan on the PACS system. He has a 4-5 mm stone in the right distal ureter. There are numerous nonobstructing stones in both kidneys. The left renal pelvis is dilated but the ureter is not Results Last Vital Signs Temp 36.8 C 07/17/18 07:49 Pulse 74 07/17/18 07:49 Resp 20 07/17/18 07:49 BP 112/64 07/17/18 07:49 Pulse Ox 97 07/17/18 07:49 Labs : 07/17/18 06:43 07/17/18 06:43 Laboratory Results - last 24 hr 07/17/18 07/17/18 06:43 06:43 WBC 10.63 RBC 4.19 L Hgb 12.6 L Hct 37.2 L MCV 88.8 MCH 30.1 MCHC 33.9 RDW 13.5 Plt Count 259 MPV 9.9 Immature Gran % 0.4 Neutrophils % 71.0 Lymphocytes % 14.8 Monocytes % 12.8 Eosinophils % 0.8 Basophils % 0.2 Absolute Neutrophils 7.56 H Absolute Lymphocytes 1.57 Absolute Monocytes 1.36 H Absolute Eosinophils 0.08 Absolute Basophils 0.02 Sodium 142 Potassium 3.6 Chloride 108 H Carbon Dioxide 23.4 Anion Gap 10.6 BUN 14 D Creatinine 0.69 L Estimated GFR/1.73 m2 >= 60.00 Glucose 96 Calcium 7.5 L Assessment and Plan (1) Calculus of distal right ureter: Current visit: Yes Status: Acute We discussed several treatment options including observation versus surgical intervention for his ureteral stone. He is not symptomatic at this minute, but he is quite anxious to have a procedure done so he can return to work without having to worry about having another episode of colic. We will proceed with a cystoscopy and retrograde pyelogram. We will plan to do a rigid ureteroscopy and stone manipulation. The manipulation may involve simply removing the stone. We may need to use a holmium laser to fracture the stone before it can be removed. I would expect that he would be able to be discharged later today once the procedure is completed. I do not have his medical records from his surgery when he was 18 years old, but knowing the location of his incision I suspect he had a pyelolithotomy on the left side. That would certainly account for the appearance of his left kidney radiographically. After discharge, we will monitor this gentleman with a nuclear renogram to ensure there is no component of obstruction on the left.
--- NOTE | 2018-07-17 12:29 | DI.RAD_ITS ---
SYMPTOMS/DIAGNOSIS: NEPHROLITHIASIS RIGHT RETROGRADE EXAMINATION: The distal segment of the right ureter is opacified. A tiny radiolucency in the distal portion of the ureter may represent the calculus demonstrated on a previous CT examination. Please see Dr. Woods's procedure report for further information.
[2018-07-17] MEDS: Lactated Ringers 1,000 ML 75 ML IV (13:00)
[2018-07-17] MEDS: Lidocaine 2% Jelly 6 ML SYR (13:16)
[2018-07-17] MEDS: IOHEXOL 50 ML 10 ML (13:18)
--- NOTE | 2018-07-17 13:32 | W.PM.OP ---
Date of service: 07/17/18 Time of Service: 13:32 Operative Note DATE OF PROCEDURE: 07/17/18 PRE-OP DIAGNOSIS: Right ureteral stone POST-OP DIAGNOSIS: same PROCEDURE: Cystoscopy, right retrograde pyelogram, right ureteroscopy with stone removal. SURGEON: Farrukh Woods ANESTHESIA: MAC ESTIMATED BLOOD LOSS: 0 PATHOLOGY: other (stone for chemical analysis) COMPLICATIONS: None Patient's condition: stable
[2018-07-17 14:00] VITALS: BP 114/64; PULSE 75; RESP 20; TEMP 36.3; O2SAT 98
[2018-07-17 14:30] VITALS: BP 112/65; PULSE 72; RESP 19; TEMP 36.3; O2SAT 97
[2018-07-17 15:00] VITALS: BP 114/64; PULSE 71; RESP 20; TEMP 36.3; O2SAT 98
--- NOTE | 2018-07-17 15:29 | W.PM.DS.N ---
Date of service: 07/17/18 Time of Service: 15:30 DS: Diagnosis Discharge Diagnosis (1) Calculus of distal right ureter: Status: Acute Discharge Plan Disposition Patient Disposition: HOME Condition: Stable Discharge Details Chief Complaint: Nk/Back Pain Reason For Visit: NEPHROLITHIASIS Admit Date/Time: 07/16/18 14:19 Admit Provider: Luis White Attending Provider: Luis White Primary Care Provider: Alexia Perez ED Provider: Natalia Matthews Hospital Course Hospital Course: The patient was admitted for IV hydration and analgesics. He was taken to the operating room following day where he underwent right ureteroscopy with stone extraction. He feels quite well after the procedure and is requesting discharge. Home Meds and New Rx's Prescriptions: No Action tramadol 50 mg tablet 50 mg PO Q6H PRN (Reason: pain) Qty: 10 RF: 0 valacyclovir 1,000 MG tablet 2,000 mg PO BID PRN RF: 0 amitriptyline 10 MG tablet 10 mg PO HS RF: 0 albuterol sulfate [ProAir HFA] 8.5 GM HFA aerosol inhaler 1 - 2 puff Inhalation Q6H PRN RF: 0 vardenafil [Levitra] 10 MG tablet 10 mg PO DAILY PRNRF: 0 pantoprazole [Protonix] [address] for susp in packet 40 mg PO DAILY RF: 0 fluticasone [Flovent HFA] 120 PUFF HFA aerosol inhaler 2 puff Inhalation BID PRN RF: 0 ondansetron 4 MG tablet,disintegrating 4 mg PO Q8H PRN PRN (Reason: Nausea / Vomiting) Qty: 30 RF: 0 naproxen 500 mg Tablet 500 mg PO BID RF: 0 Discharge Instructions Instructions: Kidney Stones (DC) Additional Instructions: Follow-up in my office in 4-6 weeks. He would need a renal ultrasound on the day of his follow-up. This should be arranged by my office staff. We will plan on reviewing his stone analysis at the follow-up visit. Stand Alone Forms: Nursing Discharge Form Referrals: Alexia Perez [Primary Care Provider] - Activity:: Activity as Tolerated Equipment/Supplies:: No Equipment Needed Diet:: As Tolerated Discharge Orders Discharge Orders: Discharge Order (Routine); Ordered 07/17/18 Ordered By: Farrukh Woods DS: Summary Time Spent with Patient Less than 30 minutes Exam Narrative Exam Narrative: He looks well. He is not in acute distress. He does not appear septic or toxic. He has avoided jackman colored urine with a few small clots.+ DS: Data Vitals/I&O Vitals and I&O: Vital Signs Temperature 36.3 C L 07/17/18 15:00 Temperature Source Tympanic 07/17/18 15:00 Pulse 71 07/17/18 15:00 Pulse Rhythm Regular 07/17/18 07:35 Respiratory Rate 20 07/17/18 15:00 Respiratory Effort Non-Labored 07/17/18 07:35 Respiratory Depth Normal 07/17/18 07:35 Respiratory Pattern Normal 07/17/18 07:35 Blood Pressure 114/64 07/17/18 15:00 Blood Pressure Position Sitting 07/16/18 07:39 Pulse Oximetry 98 07/17/18 15:00 Oxygen Delivery Method Room Air 07/17/18 15:00 Oxygen Flow Rate 0 07/17/18 15:00 Pain Level 0 07/17/18 15:00 Comment 07/17/18 14:00 Intake & Output 07/16/18 07/17/18 07/17/18 23:59 11:59 23:59 Intake Total 1285 / 1285 1882.5 / 1882.5 670 / 670 Output Total 600 / 600 1100 / 1100 425 / 425 Balance 685 / 685 782.5 / 782.5 245 / 245 Weight 68.2 kg Intake: IV 885 / 885 1882.5 / 1882.5 670 / 670 Oral 400 / 400 Output: Urine 600 / 600 1100 / 1100 425 / 425 Other: Urine Color Yellow Yellow Jackman Urine Appearance Clear Clear Hematuria Clots Urine Odor Normal Normal Strain Urine Result Negative-No Stones/Gravel Negative-No Stones/Gravel Comment no stones or gravel first void post surgery Voiding Methods Urinal Urinal Urinal Labs on day of discharge: Labs from last 24 hours 07/17/18 07/17/18 06:43 06:43 WBC 10.63 RBC 4.19 L Hgb 12.6 L Hct 37.2 L MCV 88.8 MCH 30.1 MCHC 33.9 RDW 13.5 Plt Count 259 MPV 9.9 Immature Gran % 0.4 Neutrophils % 71.0 Lymphocytes % 14.8 Monocytes % 12.8 Eosinophils % 0.8 Basophils % 0.2 Absolute Neutrophils 7.56 H Absolute Lymphocytes 1.57 Absolute Monocytes 1.36 H Absolute Eosinophils 0.08 Absolute Basophils 0.02 Sodium 142 Potassium 3.6 Chloride 108 H Carbon Dioxide 23.4 Anion Gap 10.6 BUN 14 D Creatinine 0.69 L Estimated GFR/1.73 m2 >= 60.00 Glucose 96 Calcium 7.5 L
--- NOTE | 2018-07-17 16:25 | CHAPLAIN ---
Dennis said he is feeling better, but not over this yet. 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 He said he doesn't have any family members or friends coming in to visit him, but he hopes to be discharged soon.
--- NOTE | 2018-07-17 16:34 | ROE_ITS ---
DATE OF OPERATION: July 17, 2018 PREOPERATIVE DIAGNOSIS: Right ureteral stone. POSTOPERATIVE DIAGNOSIS: Right ureteral stone. PROCEDURE: Cystoscopy, right retrograde pyelogram, right ureteroscopy with stone extraction. SURGEON: Farrukh Woods M.D. ANESTHESIA: MAC with local. COMPLICATIONS: None. HISTORY: This is a 53-year-old gentleman who has a past history of kidney stones. He presented to [facility] Emergency Room with back pain. The pain then migrated to the abdomen and was associated with naus ea and vomiting. He was evaluated with a noncontrast CT scan. He had bilateral nonobstructing kidne y stones as well as a right distal ureteral stone. He presents for ureteroscopy with stone manipulat ion. OPERATIVE REPORT: The patient was brought to the Operating Room on 07/17/18. After successful induc tion of monitored anesthesia care, he was placed in the dorsal lithotomy position. His genitalia was prepped. A 22 Sudanese rigid cystoscope was passed through the urethra into the bladder. The urethra and bladde r were inspected with a 30-degree lens. The pendulous, bulbous, and membranous urethras all appeared normal with no strictures. The prostati c urethra appeared normal as well. The bladder neck was entered. The right ureteral orifice was identified. The orifice was cannulated with a 6 Sudanese access catheter and a retrograde film was obtained. A filling defect was identified just within the ureteral orifice. This was consistent with his known right ureteral stone. We then passed a guidewire through the access catheter and advanced the wire until the proximal was s een up in the renal pelvis. The access catheter and cystoscope were then removed, leaving the wire i n place. We then utilized a semi-rigid ureteroscope and passed the scope through the urethra into the bladder. I was able to maneuver the scope into the right distal ureter and advance it until his stone was id entified. The stone was grasped in a 0-tip stone basket and removed in its entirety. The stone was sent to Pathology for chemical analysis. The scope was reintroduced and the distal ureter was inspected. No obvious perforations were seen an d no residual stones were seen. We elected not to place a ureteral stent. The safety wire was then removed. The patient tolerated this procedure well. There were no complications. He was taken back up to the surgical [facility] in stable condition. cc: Alexia Perez N.P.
--- NOTE | 2018-07-17 18:18 | DSE_ITS ---
DATE OF ADMISSION: July 16, 2018 DATE OF DISCHARGE: July 17, 2018 FINAL DISCHARGE DIAGNOSIS: Right ureteral stone. PROCEDURES PERFORMED: Cystoscopy; right retrograde pyelogram; right rigid ureteroscopy with stone ex traction; all done on 07/17/18. FINAL DISCHARGE MEDICATIONS: 1. Ultram 50 mg every 6 hours as needed for pain. 2. Valacyclovir 1000 mg, 2 tablets twice a day. 3. Amitriptyline 10 mg at bedtime. 4. Albuterol inhaler, 1-2 puffs every 6 hours as needed. 5. Levitra 10 mg daily as needed. 6. Protonix 40 mg daily. 7. Flovent, 2 puffs twice a day as needed. 8. Naproxen 500 mg twice a day. HISTORY: This is a 53-year-old gentleman who describes a past history of kidney stones that were sheri ated when he was 18 years of age. He underwent open procedures which sound as if they were pyelolith otomy and ureterolithotomy on the left. He had no subsequent episodes of renal colic until yesterday when he presented to the Emergency Room. Initially he was having some back pain but he ultimately developed right lower quadrant pain, nause a, and vomiting. He was evaluated with a stone protocol CT scan which demonstrated bilateral kidney stones and a right distal ureteral stone. He was admitted to the hospital and given IV hydration and analgesia. HOSPITAL COURSE: The patient had clinical improvement with the hydration and analgesia but he had no t passed a stone so he was brought to the Operating Room on 07/17/18, where he underwent cystoscopy w ith retrograde pyelogram. The right ureteral stone was clearly identified radiographically. We were then able to pass a ureteroscopy up to the stone, grasp it, and remove it in its entirety. The ston e was sent for chemical analysis. In the postoperative period he has been able to void. The urine is still red tinged as we would expe ct but he is not having retention. He is fairly comfortable and is interested in going home with ora l medications. He is instructed to follow up with me in my office in four to six weeks. He will get a renal ultraso und on the day of that follow-up appointment. We will review his stone analysis and make recommendat ions regarding possible treatments for his other known kidney stones. cc: Alexia Perez N.P.
[2018-07-22 15:12] LABS: Source: Right Ureter
== END 2018-07-17 17:10 | disposition home or self-care (01) | DRG 670 ==
LOC: ER 14:42 → MS 15:23
PROVIDERS: Urology; Admitting Provider Internal Medicine; Emergency Provider Student in an Organized Health Care Education/Training Program; PCP Nurse Practitioner Family; Visit Provider Internal Medicine
PROC: 0TC68ZZ Extirpation of Matter from Right Ureter, Via Natural or Artificial Opening Endoscopic (ICD-10-PCS; CPT 52352; principal; 2018-07-17 14:00)
DX: N13.2 Hydronephrosis with renal and ureteral calculous obstruction (principal); Z87.442 Personal history of urinary calculi; K21.9 Gastro-esophageal reflux disease without esophagitis; F32.9 Major depressive disorder, single episode, unspecified; G89.28 Other chronic postprocedural pain; M54.9 Dorsalgia, unspecified; R01.1 Cardiac murmur, unspecified
CPT/HCPCS: 52352; 36415; 80048; 80053; 96361; 96365; 96374; 96375; 96376; 99222; 99252; 99285; NC; 74176; 74420; 81003; 81015; 82360; 85025; 99284; G0378; J0690; J1885; J2250; J2405; J2765; J3010; J7512; Q9967

== ENCOUNTER 2018-07-17 23:09 | Observation (INO) | payer MEDICAID, SELFPAY ==
[2018-07-17 23:21] VITALS: BP 124/83; PULSE 74; RESP 16; TEMP 37.1; O2SAT 99
--- NOTE | 2018-07-17 23:53 | W.ED.GENAD ---
Discharge Plan Disposition Patient Disposition: [facility] INPATIENT Condition: Stable Discharge Details Chief Complaint: Nausea/Vomit/Diar Clinical Impression: Kidney stones, History of kidney surgery, Intractable back pain, Intractable nausea and vomiting Primary Care Provider: Alexia Perez ED Provider: Kelly Hernandez Home Meds and New Rx's Prescriptions: New ketorolac 10 mg tablet 10 mg PO Q6H PRN (Reason: pain) Qty: 10 RF: 0 No Action tramadol 50 mg tablet 50 mg PO Q6H PRN (Reason: pain) Qty: 10 RF: 0 valacyclovir 1,000 MG tablet 2,000 mg PO BID PRN RF: 0 amitriptyline 10 MG tablet 10 mg PO HS RF: 0 albuterol sulfate [ProAir HFA] 8.5 GM HFA aerosol inhaler 1 - 2 puff Inhalation Q6H PRN RF: 0 vardenafil [Levitra] 10 MG tablet 10 mg PO DAILY PRNRF: 0 pantoprazole [Protonix] [address] for susp in packet 40 mg PO DAILY RF: 0 fluticasone [Flovent HFA] 120 PUFF HFA aerosol inhaler 2 puff Inhalation BID PRN RF: 0 naproxen 500 mg Tablet 500 mg PO BID RF: 0 Medical Decision Making 53-year-old male who had a right ureteroscopy with stone removal today with Dr. Woods who presents for right-sided flank pain and nausea with dry heaving for the past few hours. Patient felt fine at time of discharge today. No relief with tramadol. Patient was not given any antiemetic medication. Vitals within normal limits. Afebrile. Patient appears uncomfortable, holding vomitus bag, but otherwise appears nontoxic. No CVA tenderness. Abdomen soft and nontender. Will place an IV, bolus IV fluids, Toradol, Zofran, screening labs and will attempt to reach Dr. Woods. 0020 --labs reviewed and noted a white blood cell count of 14.76. WBC was 10 yesterday. Likely stress response. Patient has no fever and does not appear toxic. Remainder of labs unremarkable. 0027 -- D/w Dr. Woods - states this is expected due to ureteral spasms, can expect this for the next 24-48 hours. Recommends toradol PO 10mg q6hr prn for 5 days, #10, can still take tramadol, and give zofran ODT. Recommends to f/u as scheduled for US in 1 month and call earlier if needed. No recommendations for imaging at this time. 0055 -- Pt denies relief with toradol/zofran. We will give a dose of morphine, Phenergan and another bolus IV fluids and reassess. 0150 --patient states he feels only slightly better after morphine and Phenergan. [place] and feels too uncomfortable with nausea and pain to go home. 0205 --D/w Dr. Woods - accepts pt for admission. HPI General Mode of arrival: ambulatory. Date/Time Provider Initiated Documentation: 07/17/18 23:23. Limitations to Documentation: no limitations. Information obtained by: patient. HPI Narrative: Pt is a 53yo M who had right ureteroscopy with stone removal today with Dr. Woods who presents with right-sided flank pain and nausea with dry heaving for the past few hours. Patient states he was discharged around 5:30 PM and had been feeling fine. He was given tramadol for pain which he took without relief. Patient denies any known fever. Past medical history: Anxiety, depression, GERD, asthma, kidney stones Surgical history: Testicular surgery, kidney surgery, blepharoplasty, uteroscopy with stone removal Social history: Quit tobacco, denies alcohol or drugs Medications: Tramadol, albuterol, Elavil, Protonix, Levitra, Valacyclovir Allergies: None Related Data Home Medications Medication Instructions Recorded Confirmed fluticasone [Flovent HFA] 2 puff INHALATION BID PRN 04/05/14 07/17/18 albuterol sulfate [ProAir HFA] 1 - 2 puff INHALATION Q6H PRN 01/07/17 07/17/18 inhaler amitriptyline 10 mg PO HS 01/07/17 07/17/18 pantoprazole [Protonix] 40 mg PO DAILY packet 01/07/17 07/17/18 valacyclovir 2,000 mg PO BID PRN tab-cap 01/07/17 07/17/18 vardenafil [Levitra] 10 mg PO DAILY PRN tab-cap 01/07/17 07/16/18 naproxen 500 mg PO BID 07/16/18 07/17/18 tramadol 50 mg tablet 50 mg PO Q6H PRN #10 tab 07/17/18 07/17/18 ketorolac 10 mg PO Q6H PRN #10 tab 07/18/18 Previous Rx's Medication Instructions Recorded tramadol 50 mg tablet 50 mg PO Q6H PRN #10 tab 07/17/18 ketorolac 10 mg PO Q6H PRN #10 tab 07/18/18 Allergies Allergy/AdvReac Type Severity Reaction Status Date / Time No Known Allergies Allergy Unverified 07/17/18 23:30 General Stated Complaint: Nausea/Vomit/Diar FRANKIE: 4 Review of Systems Review of Systems All systems reviewed & are unremarkable except as noted in HPI and below Constitutional Reports as per HPI, Denies chills and Denies fever(s) Eyes Denies blurry vision ENT Denies dizziness, Denies sore throat and Denies throat swelling Cardiovascular Denies chest pain and Denies dyspnea Respiratory Denies dyspnea Gastrointestinal Reports abdominal pain, Denies diarrhea, Reports nausea and Denies vomiting Genitourinary Reports hematuria, Denies dysuria and Reports flank pain Musculoskeletal Denies back pain and Denies numbness Integumentary/Breasts Denies lesions and Denies rash Neurologic Denies dizziness and Denies numbness Allergic/Immunologic Denies throat swelling PFSH Family History Mother Colon cancer Father Myocardial infarction CHF (congestive heart failure) Sister Melanoma Medical History Anxiety Asthma Chronic low back pain Cold sore Depression GERD (gastroesophageal reflux disease) H/O steroid therapy Hemorrhoids, external Kidney stones Knee pain, bilateral Pre-hypertension Wheezing Social History household members: other details: lives alone lives independently: Yes 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 Smoking/Tobacco Use Status: Former Tobacco Use pack-years: 2 alcohol intake: never substance use type: does not use Surgical History H/O blepharoplasty (Acute) History of kidney surgery (Acute) History of testicular surgery (Acute) Exam Const General: cooperative, healthy appearing, uncomfortable and acute distress (Sitting forward on edge of stretcher with vomitus bag) moderate Orientation: alert and awake HENOR Head: normal to inspection Ears: hearing grossly normal bilaterally, external ears normal and TM's abnormal bilaterally General nose exam: external nose normal Mouth: oral mucosae normal Eyes General: appearance normal, both eyes and all related structures Pupils: PERRL Neck Neck: normal visual inspection Resp Effort & Inspection: normal respiratory effort and able to speak in complete sentences Auscultation: clear to auscultation bilaterally Cardio Rate: regular rate Rhythm: regular rhythm GI Inspection: normal to inspection and scar (midline abdomen, well healed) Palpation: soft, not firm, no guarding, no hepatosplenomegaly, no masses and nontender Auscultation: normal bowel sounds Penis: normal penis Scrotum: no ecchymosis, not edematous, not erythematous and other (prosthetic L testicle) Back/Spine/Pelvis Back: no CVA tenderness Skin General skin exam: no rashes or lesions noted Neuro General: alert and awake Cognition: normal cognition Speech: speech normal Gait: normal gait Motor: muscle tone normal throughout Sensory Exam: no sensory deficits noted Extrem General: normal to inspection and full ROM Psych Appearance: grossly normal Mental Status: mental status grossly normal Speech and Movement: speech and movement normal Affect: normal affect Thought Process: normal Course Laboratory Tests Range/Units 07/18/18 07/18/18 00:02 00:02 WBC (4.4-10.8) k/cumm 14.76 H D RBC (4.50-6.00) m/cumm 4.44 L Hgb (13.5-17.5) g/dL 13.5 Hct (40.0-50.0) % 39.4 L MCV (80-95) fL 88.7 MCH (27.0-33.0) pg 30.4 MCHC (32.0-36.0) g/dL 34.3 RDW (11.8-14.1) % 13.6 Plt Count (130-400) x1000/uL 304 MPV (8.0-11.0) fL 9.8 Immature Gran % 0.5 Neutrophils % 84.5 Lymphocytes % 6.4 Monocytes % 8.4 Eosinophils % 0.1 Basophils % 0.1 Absolute Neutrophils (1.2-6.7) k/cumm 12.47 H Absolute Lymphocytes (1.2-3.4) k/cumm 0.94 L Absolute Monocytes (0.11-0.7) k/cumm 1.24 H Absolute Eosinophils (0.0-0.7) k/cumm 0.01 Absolute Basophils (0.0-0.2) k/cumm 0.01 Sodium (136-145) mmol/L 141 Potassium (3.5-5.1) mmol/L 4.1 Chloride (98-107) mmol/L 106 Carbon Dioxide (21.0-32.0) mmol/L 23.2 Anion Gap (3-11) mmol/L 11.8 H BUN (7-18) mg/dL 20 H D Creatinine (0.70-1.30) mg/dL 1.05 Estimated GFR/1.73 m2 (mL/min/1.73m2) >= 60.00 Glucose (70-100) mg/dL 107 H Calcium (8.5-10.1) mg/dL 8.4 L Vital Signs Temperature 98.8 F 07/17/18 23:21 Pulse 74 07/17/18 23:21 Respiratory Rate 16 07/17/18 23:21 Blood Pressure 124/83 07/17/18 23:21 Pulse Oximetry 99 07/17/18 23:21 Temperature 98.8 F 07/17/18 23:21 Temperature Source Temporal Artery Scan 07/17/18 23:21 Pulse 74 07/17/18 23:21 Respiratory Rate 16 07/17/18 23:21 Respiratory Effort 07/17/18 23:21 Blood Pressure 124/83 07/17/18 23:21 Pulse Oximetry 99 07/17/18 23:21 Oxygen Delivery Method Room Air 07/17/18 23:21 Oxygen Flow Rate 0 07/17/18 23:21 Pain Level 9 07/17/18 23:21
[2018-07-18] VITALS (8 sets, daily range): BP systolic 112–143; BP diastolic 56–75; PULSE 59–80; RESP 16–20; TEMP 36.8–37.9; O2SAT 97–100
[2018-07-18 00:09] LABS: Abs Immature Grans 0.07 k/cumm (0.0-0.09); Absolute Basophil Count 0.01 k/cumm (0.0-0.2); Absolute Eosinophil Count 0.01 k/cumm (0.0-0.7); Absolute Lymphocyte Count 0.94 k/cumm (1.2-3.4); Absolute Monocyte Count 1.24 k/cumm (0.11-0.7); Basophils % 0.1; Eosinophils % 0.1; HCT 39.4 % (40.0-50.0); HGB 13.5 g/dL (13.5-17.5); Immature Grans % 0.5; Lymphocytes % 6.4; Mean Corp. HGB Concentration 34.3 g/dL (32.0-36.0); Mean Corpuscular Hemoglobin 30.4 pg (27.0-33.0); Mean Corpuscular Volume 88.7 fL (80-95); Mean Platelet Volume 9.8 fL (8.0-11.0); Monocytes % 8.4; Neutrophils % 84.5; Platelet Count 304 x1000/uL (130-400); RBC 4.44 m/cumm (4.50-6.00); RBC Distribution Width 13.6 % (11.8-14.1); White Blood Cell Count 14.76 k/cumm (4.4-10.8)
[2018-07-18 00:10] LABS: Absolute Neutrophil Count 12.47 k/cumm (1.2-6.7)
[2018-07-18] MEDS: Normal Saline 1,000 ML 1000 ML IV ×2 (00:13→01:13)
[2018-07-18] MEDS: Ketorolac 30 MG/ML VIAL IVP (00:14)
[2018-07-18] MEDS: Ondansetron 4 MG/2 ML VIAL IVP (00:15)
[2018-07-18 00:17] LABS: Anion Gap 11.8 mmol/L (3-11); BUN 20 mg/dL (7-18); CO2 23.2 mmol/L (21.0-32.0); CREATININE 1.05 mg/dL (0.70-1.30); Calcium 8.4 mg/dL (8.5-10.1); Chloride 106 mmol/L (98-107); Glucose 107 mg/dL (70-100); Potassium 4.1 mmol/L (3.5-5.1); Sodium 141 mmol/L (136-145)
[2018-07-18] MEDS: Normal Saline 1,000 ML 150 ML IV ×3 (03:33→23:46)
[2018-07-18] MEDS: MORPHine 4 MG/ML SYR IVP (04:13)
[2018-07-18] MEDS: Normal Saline Flush 10 ML SYR IVP ×4 (04:26→20:13)
--- NOTE | 2018-07-18 07:32 | W.PM.HP.N ---
Date of service: 07/18/18 Time of Service: 07:33 Assessment and Plan (1) Right flank pain: Current visit: Yes Status: Acute His ureteral calculus has already been removed, so the most likely cause of his current symptoms has to do with ureteral spasm. Typically the symptoms are self limited and improve within 24-48 hours. If they do not improve, we can always consider repeat imaging or placing a ureteral stent. Unfortunately, stents will relieve any obstruction component, but have been shown to increase ureteral and bladder discomfort in these cases. We will attempt to add in oral pain medications. I would expect he will be able to go home once his pain can be controlled with oral meds. History of Present Illness Chief Complaint: Right flank pain Narrative: This is a 53-year-old gentleman who has a history of bilateral kidney stones. He underwent right ureteroscopy with stone extraction yesterday. He felt well after the procedure, so he was discharged home. He presented back to the emergency room early this morning with right flank pain and nausea. It was suspected that his symptoms were related to ureteral spasm after the procedure. His symptoms were not controlled with oral medications, so he was admitted back to the hospital for hydration, analgesic and antiemetics. Since his admission, he feels a bit better. He still has some flank pain but his nausea is improved. He is not having any vomiting. He has no fever or chills. Review of Systems Constitutional Denies chills and Denies fever(s) Eyes Denies change in vision Cardiovascular Denies chest pain, Denies syncope and Denies palpitations Respiratory Denies cough and Denies hemoptysis Gastrointestinal Reports abdominal pain and Reports nausea Genitourinary Reports as per HPI Musculoskeletal Reports arthralgias Neurologic Denies syncope Endocrine Denies palpitations PFSH Family History Mother Colon cancer Father Myocardial infarction CHF (congestive heart failure) Sister Melanoma Medical History Anxiety Asthma Chronic low back pain Cold sore Depression GERD (gastroesophageal reflux disease) H/O steroid therapy Hemorrhoids, external Kidney stones Knee pain, bilateral Pre-hypertension Wheezing Social History household members: other details: lives alone lives independently: Yes 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 Smoking/Tobacco Use Status: Former Tobacco Use pack-years: 2 alcohol intake: never substance use type: does not use Surgical History H/O blepharoplasty (Acute) History of kidney surgery (Acute) History of testicular surgery (Acute) Meds Home Medications Medication Instructions Recorded Confirmed Type fluticasone [Flovent HFA] 2 puff INHALATION BID PRN 04/05/14 07/17/18 History albuterol sulfate [ProAir HFA] 1 - 2 puff INHALATION Q6H PRN 01/07/17 07/17/18 History inhaler amitriptyline 10 mg PO HS 01/07/17 07/17/18 History pantoprazole [Protonix] 40 mg PO DAILY packet 01/07/17 07/17/18 History valacyclovir 2,000 mg PO BID PRN tab-cap 01/07/17 07/17/18 History vardenafil [Levitra] 10 mg PO DAILY PRN tab-cap 01/07/17 07/16/18 History naproxen 500 mg PO BID 07/16/18 07/17/18 History tramadol 50 mg tablet 50 mg PO Q6H PRN #10 tab 07/17/18 07/17/18 Rx ketorolac 10 mg PO Q6H PRN #10 tab 07/18/18 Rx Allergies Allergy/AdvReac Type Severity Reaction Status Date / Time No Known Allergies Allergy Unverified 07/17/18 23:30 Exam Narrative Exam Narrative: He looks somewhat uncomfortable but does not appear septic or toxic. His vital signs are documented elsewhere in the chart His chest wall motion is normal he does not appear short of breath his lungs are clear His cardiac exam reveals a regular rate and rhythm His abdomen is soft there is no guarding or rebound tenderness no abdominal masses are palpable There is no edema in the lower extremities no amputations or deformities are found He is awake, alert and oriented Results Labs : 07/18/18 00:02 07/18/18 00:02 Laboratory Results - last 24 hr 07/18/18 07/18/18 00:02 00:02 WBC 14.76 H D RBC 4.44 L Hgb 13.5 Hct 39.4 L MCV 88.7 MCH 30.4 MCHC 34.3 RDW 13.6 Plt Count 304 MPV 9.8 Immature Gran % 0.5 Neutrophils % 84.5 Lymphocytes % 6.4 Monocytes % 8.4 Eosinophils % 0.1 Basophils % 0.1 Absolute Neutrophils 12.47 H Absolute Lymphocytes 0.94 L Absolute Monocytes 1.24 H Absolute Eosinophils 0.01 Absolute Basophils 0.01 Sodium 141 Potassium 4.1 Chloride 106 Carbon Dioxide 23.2 Anion Gap 11.8 H BUN 20 H D Creatinine 1.05 Estimated GFR/1.73 m2 >= 60.00 Glucose 107 H Calcium 8.4 L Last Vital Signs Temp 37.2 C 07/18/18 06:32 Pulse 59 L 07/18/18 06:32 Resp 16 07/18/18 06:32 BP 130/75 07/18/18 06:32 Pulse Ox 100 07/18/18 06:32
[2018-07-18] MEDS: Ketorolac 15 MG/ML VIAL IVP ×3 (08:13→20:13)
[2018-07-18] MEDS: Tamsulosin 0.4 MG CAPCR PO (10:13)
[2018-07-18] MEDS: Pantoprazole 40 MG TABCR PO (10:28)
[2018-07-18] MEDS: HYDROcodone 5/Acetaminophen 325 TAB PO ×2 (11:56→17:06)
--- NOTE | 2018-07-18 13:58 | PDOC.CMIN ---
- If Service Date Differs Date of service: 07/18/18 Time of Service: 13:58 Care Management Initial Assess REASON FOR HOSPITALIZATION:: (R) flank pain PAST MEDICAL HISTORY/PAST SURGICAL HISTORY:: Anxiety. Asthma. Chronic low back pain. Cold sore. Depression. GERD (gastroesophageal reflux disease). H/O steroid therapy. Hemorrhoids, external. Kidney stones. Knee pain, bilateral. Pre-hypertension. Wheezing. H/O blepharoplasty (Acute). History of kidney surgery (Acute). History of testicular surgery (Acute) PREVIOUS FUNCTIONAL STATUS/SOCIAL/FAMILY SUPPORTS:: Dennis resides alone in [place]. 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 Dennis is able to manage ADL's and drives independently. CURRENT FUNCTIONAL STATUS:: Lying in bed, pleasant and open to discussion. ADVANCE DIRECTIVES:: None on file Has patient been provided with information about the portal?: Yes Did the patient sign up for the portal?: No CODE STATUS:: Full Code INSURANCE COVERAGE / FINANCIAL ISSUES:: Medicaid CURRENT HOME/COMMUNITY SERVICES/EQUIPMENT:: No services or medical equipment in the community. PRIMARY CARE PHYSICIAN:: Alexia Perez POTENTIAL DISCHARGE NEEDS:: F/U appointment with Dr. Woods PATIENT/FAMILY EDUCATION NEEDS:: Review DC instructions, any limitations, and ongoing DC planning discussion. Discuss 'Ask me Three' ANTICIPATED BARRIERS TO DISCHARGE:: None identified at this time. TRANSPORTATION:: Via private vehicle PLAN:: Dennis will return home with no anticipated services. He will F/U with Dr. Woods and plan of care as prescribed. Transport via private vehicle Readmission - Within the Past 30 Days Yes or No: Y - Date of First Admission Date of 1st Admission: 07/16/18 - Date of this Admission Date of Admission: 07/18/18 This admission was: Through ED - Office Visit Since 1st Admission Have you seen your PCP in the office since discharge?: No Had an appointment Been Scheduled?: No - Speicalist Appointments Have you seen any other specialist since your 1st Admission?: No - I. Interview patient and/or Family Difficulty reaching your doctor or getting an office appt?: No Have you had trouble purchasing/ or taking medication?: No Have you had trouble with getting meals at home?: No Did you feel ready for discharge when you left the last time: Yes Did you call your physician beore you came to the ED?: No - If the patient had a VNA ordered Did the patient have a VNA order?: No - ED visits How many ED visits in the past 12 months: 4 - Assessment for Readmission Summary of readmission circumstances, based upon interviews: Dennis was readmitted for intractable back pain/nausea. He had a kidney stone removal done yesterday with stent insertion. Pain was not managed with oral pain medications, therefore he was readmitted.
--- NOTE | 2018-07-18 14:10 | INITIAL_ITS ---
- If Service Date Differs Date of service: 07/18/18 Time of Service: 13:58 Care Management Initial Assess REASON FOR HOSPITALIZATION:: (R) flank pain PAST MEDICAL HISTORY/PAST SURGICAL HISTORY:: Anxiety. Asthma. Chronic low back pain. Cold sore. Depression. GERD (gastroesophageal reflux disease). H/ O steroid therapy. Hemorrhoids, external. Kidney stones. Knee pain, bilateral. Pre-hypertension. Wheezing. H/O blepharoplasty (Acute). History of kidney surgery (Acute). History of testicular surgery (Acute) PREVIOUS FUNCTIONAL STATUS/SOCIAL/FAMILY SUPPORTS:: Dennis resides alone in [place]. 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 Dennis is able to manage ADL's and drives independently. CURRENT FUNCTIONAL STATUS:: Lying in bed, pleasant and open to discussion. ADVANCE DIRECTIVES:: None on file Has patient been provided with information about the portal?: Yes Did the patient sign up for the portal?: No CODE STATUS:: Full Code INSURANCE COVERAGE / FINANCIAL ISSUES:: Medicaid CURRENT HOME/COMMUNITY SERVICES/EQUIPMENT:: No services or medical equipment in the community. PRIMARY CARE PHYSICIAN:: Alexia Perez POTENTIAL DISCHARGE NEEDS:: F/U appointment with Dr. Woods PATIENT/FAMILY EDUCATION NEEDS:: Review DC instructions, any limitations, and ongoing DC planning discussion. Discuss 'Ask me Three' ANTICIPATED BARRIERS TO DISCHARGE:: None identified at this time. TRANSPORTATION:: Via private vehicle PLAN:: Dennis will return home with no anticipated services. He will F/U with Dr. Woods and plan of care as prescribed. Transport via private vehicle Readmission - Within the Past 30 Days Yes or No: Y - Date of First Admission Date of 1st Admission: 07/16/18 - Date of this Admission Date of Admission: 07/18/18 This admission was: Through ED - Office Visit Since 1st Admission Have you seen your PCP in the office since discharge?: No Had an appointment Been Scheduled?: No - Speicalist Appointments Have you seen any other specialist since your 1st Admission?: No - I. Interview patient and/or Family Difficulty reaching your doctor or getting an office appt?: No Have you had trouble purchasing/ or taking medication?: No Have you had trouble with getting meals at home?: No Did you feel ready for discharge when you left the last time: Yes Did you call your physician beore you came to the ED?: No - If the patient had a VNA ordered Did the patient have a VNA order?: No - ED visits How many ED visits in the past 12 months: 4 - Assessment for Readmission Summary of readmission circumstances, based upon interviews: Dennis was readmitted for intractable back pain/nausea. He had a kidney stone removal done yesterday with stent insertion. Pain was not managed with oral pain medications, therefore he was readmitted.
[2018-07-19] MEDS: Ketorolac 15 MG/ML VIAL IVP ×2 (02:13→07:50)
[2018-07-19] MEDS: Normal Saline Flush 10 ML SYR IVP ×2 (02:13→07:50)
[2018-07-19 04:00] VITALS: BP 136/73; PULSE 72; RESP 16; TEMP 37.5; O2SAT 95
[2018-07-19] MEDS: Normal Saline 1,000 ML 150 ML IV (06:32)
[2018-07-19] MEDS: Pantoprazole 40 MG TABCR PO (07:50)
--- NOTE | 2018-07-19 08:11 | W.PM.DS.N ---
Date of service: 07/19/18 Time of Service: 08:11 DS: Diagnosis Discharge Diagnosis (1) Right flank pain: Status: Acute Discharge Plan Disposition Condition: Stable Discharge Details Chief Complaint: Nausea/Vomit/Diar Reason For Visit: INTRACTABLE BACK PAIN/NAUSEA S/P KIDNEY STONE CHERYL Admit Date/Time: 07/18/18 02:09 Admit Provider: Farrukh Woods Attending Provider: Farrukh Woods Primary Care Provider: Alexia Perez ED Provider: Kelly Hernandez Hospital Course Hospital Course: The patient was admitted with suspected pain related to post operative ureteral spasms. We treated him supportively with hydration, analgesia and antiemetics. Over the next 24 to 48 hours, his symptoms resolved and he is ready for discharge. He is tolerating oral medications without nausea. His pain has completely resolved. Home Meds and New Rx's Prescriptions: New hydrocodone-acetaminophen 5-325 mg Tablet 1 - 2 tab PO Q4H PRN PRNQty: 20 RF: 0 Continue tramadol 50 mg tablet 50 mg PO Q6H PRN (Reason: pain) Qty: 10 RF: 0 valacyclovir 1,000 MG tablet 2,000 mg PO BID PRN RF: 0 amitriptyline 10 MG tablet 10 mg PO HS RF: 0 albuterol sulfate [ProAir HFA] 8.5 GM HFA aerosol inhaler 1 - 2 puff Inhalation Q6H PRN RF: 0 vardenafil [Levitra] 10 MG tablet 10 mg PO DAILY PRNRF: 0 pantoprazole [Protonix] [address] for susp in packet 40 mg PO DAILY RF: 0 fluticasone [Flovent HFA] 120 PUFF HFA aerosol inhaler 2 puff Inhalation BID PRN RF: 0 naproxen 500 mg Tablet 500 mg PO BID RF: 0 Discharge Instructions Additional Instructions: Should not take Tramadol and Hydrocodone at same time (take one or the other as needed for pain) Other discharge instructions can be found on discharge summary of 07/17 Activity:: Activity as Tolerated Activity:: Activity as Tolerated Equipment/Supplies:: No Equipment Needed DS: Summary Status at Discharge Functional status at discharge: independent ambulation Overall status at discharge: patient is back to baseline Time Spent with Patient Less than 30 minutes Exam Const General: cooperative, comfortable and no acute distress Neck Neck: normal visual inspection Chest Chest: normal inspection of the chest GI Palpation: soft and no masses Psych Mental Status: mental status grossly normal DS: Data Vitals/I&O Vitals and I&O: Vital Signs Temperature 37.5 C 07/19/18 04:00 Temperature Source Skin 07/19/18 04:00 Pulse 72 07/19/18 04:00 Pulse Rhythm Regular 07/19/18 02:41 Respiratory Rate 16 07/19/18 04:00 Respiratory Effort 07/19/18 02:41 Respiratory Depth Normal 07/19/18 02:41 Respiratory Pattern Normal 07/19/18 02:41 Blood Pressure 136/73 07/19/18 04:00 Pulse Oximetry 95 07/19/18 04:00 Oxygen Delivery Method Room Air 07/19/18 04:00 Oxygen Flow Rate 0 07/19/18 04:00 Pain Level 1 07/19/18 07:50 Intake & Output 07/18/18 07/18/18 07/19/18 11:59 23:59 11:59 Intake Total 1000 / 1000 2921 / 2921 1050 / 1050 Output Total 275 / 275 250 / 250 250 / 250 Balance 725 / 725 2671 / 2671 800 / 800 Weight 68.039 kg Intake: IV 1000 / 1000 195 / 1951 1000 / 1000 Oral 970 / 970 50 / 50 Output: Urine 275 / 275 250 / 250 250 / 250 Other: Urine Color Dark Ina Light Ina Urine Appearance Cloudy Clear Clear Clots Urine Odor Normal Comment Med. Ina color. Bladder Scan per EC RN. Voiding Methods Urinal Urinal Urinal
--- NOTE | 2018-07-19 08:24 | W.PM.PROGNOT ---
Assessment and Plan (1) Right flank pain: Current visit: Yes Status: Resolved His symptoms have completely resolved as we would expect from post operative ureteral spasms. We will discharge him this morning and followup as previously arranged. Subjective Interval history since last seen: He is now pain free. His nausea has resolved and he is able to tolerate PO pain meds. Exam Const General: cooperative, healthy appearing, comfortable and no acute distress GI Palpation: no masses Objective Objective Clinical Data: Vital Signs Temperature 37.5 C 07/19/18 04:00 Temperature Source Skin 07/19/18 04:00 Pulse 72 07/19/18 04:00 Pulse Rhythm Regular 07/19/18 02:41 Respiratory Rate 16 07/19/18 04:00 Respiratory Effort 07/19/18 02:41 Respiratory Depth Normal 07/19/18 02:41 Respiratory Pattern Normal 07/19/18 02:41 Blood Pressure 136/73 07/19/18 04:00 Pulse Oximetry 95 07/19/18 04:00 Oxygen Delivery Method Room Air 07/19/18 04:00 Oxygen Flow Rate 0 07/19/18 04:00 Pain Level 1 07/19/18 07:50 Intake & Output 07/18/18 07/18/18 07/19/18 11:59 23:59 11:59 Intake Total 1000 / 1000 2921 / 2921 1050 / 1050 Output Total 275 / 275 250 / 250 250 / 250 Balance 725 / 725 2671 / 2671 800 / 800 Weight 68.039 kg Intake: IV 1000 / 1000 1951 / 1951 1000 / 1000 Oral 970 / 970 50 / 50 Output: Urine 275 / 275 250 / 250 250 / 250 Other: Urine Color Dark Ina Light Ina Urine Appearance Cloudy Clear Clear Clots Urine Odor Normal Comment Med. Ina color. Bladder Scan per EC RN. Voiding Methods Urinal Urinal Urinal Laboratory Results WBC 14.76 k/cumm (4.4-10.8) H D 07/18/18 00:02 RBC 4.44 m/cumm (4.50-6.00) L 07/18/18 00:02 Hgb 13.5 g/dL (13.5-17.5) 07/18/18 00:02 Hct 39.4 % (40.0-50.0) L 07/18/18 00:02 MCV 88.7 fL (80-95) 07/18/18 00:02 MCH 30.4 pg (27.0-33.0) 07/18/18 00:02 MCHC 34.3 g/dL (32.0-36.0) 07/18/18 00:02 RDW 13.6 % (11.8-14.1) 07/18/18 00:02 Plt Count 304 x1000/uL (130-400) 07/18/18 00:02 MPV 9.8 fL (8.0-11.0) 07/18/18 00:02 Immature Gran % 0.5 07/18/18 00:02 Neutrophils % 84.5 07/18/18 00:02 Lymphocytes % 6.4 07/18/18 00:02 Monocytes % 8.4 07/18/18 00:02 Eosinophils % 0.1 07/18/18 00:02 Basophils % 0.1 07/18/18 00:02 Absolute Neutrophils 12.47 k/cumm (1.2-6.7) H 07/18/18 00:02 Absolute Lymphocytes 0.94 k/cumm (1.2-3.4) L 07/18/18 00:02 Absolute Monocytes 1.24 k/cumm (0.11-0.7) H 07/18/18 00:02 Absolute Eosinophils 0.01 k/cumm (0.0-0.7) 07/18/18 00:02 Absolute Basophils 0.01 k/cumm (0.0-0.2) 07/18/18 00:02 Sodium 141 mmol/L (136-145) 07/18/18 00:02 Potassium 4.1 mmol/L (3.5-5.1) 07/18/18 00:02 Chloride 106 mmol/L (98-107) 07/18/18 00:02 Carbon Dioxide 23.2 mmol/L (21.0-32.0) 07/18/18 00:02 Anion Gap 11.8 mmol/L (3-11) H 07/18/18 00:02 BUN 20 mg/dL (7-18) H D 07/18/18 00:02 Creatinine 1.05 mg/dL (0.70-1.30) 07/18/18 00:02 Estimated GFR/1.73 m2 >= 60.00 (mL/min/1.73m2) 07/18/18 00:02 Glucose 107 mg/dL (70-100) H 07/18/18 00:02 Calcium 8.4 mg/dL (8.5-10.1) L 07/18/18 00:02
--- NOTE | 2018-07-19 10:47 | PDOC.CMDIS ---
- If Service Date Differs Date of service: 07/19/18 Time of Service: 10:47 LACE Index Scoring Tool - Questions: Length of Stay (in days): 2 Acuity (Admit via E.D.?): Yes E.D. Visits: 4 - Answers: Total Score: 9 Risk of Readmission: Low Risk Care Management Discharge Reason for Hospitalization: (R) flank pain Discharge Plan: Dennis will discharge home when medically ready per MD. Anticipate patient will discharge with no services and follow up with his PCP. Dennis will transport via private vehicle with a friend. Patient/Family Education Needs: Discharge education, any limitations, and follow up plan of care. Ask Me Three discussion.
== END 2018-07-19 10:36 | disposition home or self-care (01) ==
LOC: ER 07-18 02:08 → MS 07-18 03:08
PROVIDERS: Admitting Provider Urology; Emergency Provider Physician Assistant; PCP Nurse Practitioner Family; Visit Provider Urology
DX: G89.18 Other acute postprocedural pain (principal); M54.5 Low back pain; Z48.816 Encounter for surgical aftercare following surgery on the genitourinary system; Z87.442 Personal history of urinary calculi; K21.9 Gastro-esophageal reflux disease without esophagitis; F32.9 Major depressive disorder, single episode, unspecified
CPT/HCPCS: 36415; 80048; 96361; 96365; 96375; 99222; 99231; 99238; 99285; 85025; 99284; G0378; J1885; J2405

== ENCOUNTER 2018-07-20 21:04 | Emergency (ER) | payer MEDICAID, SELFPAY ==
[2018-07-20 21:14] VITALS: BP 149/70; PULSE 92; RESP 22; TEMP 36.6; O2SAT 97
--- NOTE | 2018-07-20 21:16 | DI.CT_ITS ---
SYMPTOM/DIAGNOSIS: RT SIDED FLANK PAIN RENAL COLIC CT: Comparison is made with 07/16/18. There are bilateral pleural effusions, moderate on the right and small on the left. The lung bases were not included on the previous exam. There is a patchy infiltrate at the right lower lobe. There is an eventration of the posterior left diaphragm. There is bilateral hydronephrosis, right greater than left. There is a 3 mm. stone at the distal right ureter. There is mild right perinephric stranding. The amount of hydronephrosis appears to have increased when compared with the previous exam. The stone previously seen in the mid right kidney is now located in the distal ureter. The ureter appears dilated distal to the calcification. There is prominence of the left renal pelvis which appears unchanged. The left ureter does not appear dilated distal to the ureteropelvic junction. There is now some body wall edema. The liver, gallbladder, spleen, adrenals and pancreas are unremarkable. The bladder is nearly empty. No bowel dilatation or inflammatory changes are seen. There is a small amount of fluid in the right lower quadrant. The bones appear osteoporotic, particularly in the pelvis. Surgical scar is seen in the lower anterior abdominal wall. IMPRESSION: Right lower lobe infiltrate and bilateral pleural effusions as well as body wall edema. Severe right hydronephrosis, worsening when compared with the previous exam. The previously distal ureteral stone is no longer seen. The previously noted stone in the mid right kidney is now located in the distal ureter but does not appear to be obstructing. There is a non obstructing stone at the lower pole of the left kidney as well as a dilated left renal pelvis which appears chronic.
--- NOTE | 2018-07-20 21:16 | W.ED.GENAD ---
Discharge Plan Disposition Patient Disposition: HOME Condition: Stable Discharge Details Chief Complaint: FlankPain Clinical Impression: Kidney stone on right side Reason For Visit: [id number] Primary Care Provider: Alexia Perez ED Provider: Arnold Adam Home Meds and New Rx's Prescriptions: New tamsulosin [Flomax] 0.4 mg capsule 0.4 mg PO DAILY Qty: 14 RF: 0 ondansetron HCl [Zofran] 4 mg tablet 4 mg PO TID PRN (Reason: nausea and vomiting) 5 Days Qty: 30 RF: 0 Continue tramadol 50 mg tablet 50 mg PO Q6H PRN (Reason: pain) Qty: 10 RF: 0 valacyclovir 1,000 MG tablet 2,000 mg PO BID PRN RF: 0 amitriptyline 10 MG tablet 10 mg PO HS RF: 0 albuterol sulfate [ProAir HFA] 8.5 GM HFA aerosol inhaler 1 - 2 puff Inhalation Q6H PRN RF: 0 vardenafil [Levitra] 10 MG tablet 10 mg PO DAILY PRNRF: 0 pantoprazole [Protonix] [address] for susp in packet 40 mg PO DAILY RF: 0 fluticasone [Flovent HFA] 120 PUFF HFA aerosol inhaler 2 puff Inhalation BID PRN RF: 0 naproxen 500 mg Tablet 500 mg PO BID RF: 0 hydrocodone-acetaminophen 5-325 mg Tablet 1 - 2 tab PO Q4H PRN PRNQty: 20 RF: 0 Discharge Instructions Instructions: Kidney Stones (ED) Additional Instructions: take the naprosyn for pain, follow instructions on packaging. If you still need pain relief after this take a hydrocodone if you have fevers or persistent vomit return to the emergency department Discharge Data Discharge Physician: Arnold Adam Medical Decision Making 53 yo male with hx of kidney stones who underwent recent stent placement last week and had to be admitted for pain control and was d/c'd yesterday, comes in with complaints of right sided flank pain since yesterday and nausea. Denies fevers and has no cva tenderness so unlikely pyelo vs infected kidney stone. Will treat his nausea and pain meds and image to eval if he has a recurrent kidney stone labs show no acute pathology, awaiting ua and ct results. Pain is now gone but still has nausea, will order reglan CT shows pleural effusions but has no hypoxia or other symptoms that I feel he requires workup for at this time, is likely mild complication from being intubated and postoperatively, has no chest pain or sob. . Does have a new 2mm stone on the right at the uvj which is likely causing his symptoms. Awaiting ua, pain is well controlled UA shows blood, negative nitrites and denies any dysuria so do not feel abx indicated. Will start flomax and havfe him f/u with Dr. Woods, return precautions given Differential Diagnosis kidney stone, ureteral spasm, ureteral perforation Imaging Data Radiologic Study: Attestation: I personally reviewed and interpreted this imaging study as follows: Imaging: CT Scan Radiologist's impression: IMPRESSION: Bilateral hydronephrosis. Severe on the right and moderate in the left. The appearance suggests some chronicity. No evidence of obstructing stone on the left. This may be a chronic UPJ obstruction. On the right the ureter is dilated but the UVJ stone that was seen on prior study is no longer present. 2 mm nonobstructing stone in the distal right ureter. Moderate right pleural effusion. Small left pleural effusion. Small amount of postinflammatory change in the lung bases, possibly aspiration. Body wall edema. Lab Data Lab results reviewed: Yes I reviewed the patient's lab results. HPI General Mode of arrival: ambulatory. Date/Time Provider Initiated Documentation: 07/20/18 21:04. Limitations to Documentation: no limitations. Information obtained by: patient. History of Present Illness 53 year old M presents to the emergency department with the chief complaint of right flank pain, described as moderate, with intensity rated at 6. and is localized to the back. Patient reports no radiation. Patient started experiencing this day(s) (1) and it has been intermittent. No relieving factors improve symptom(s), No exacerbating factors reported . Patient notes nausea/vomiting. Related Data Home Medications Medication Instructions Recorded Confirmed fluticasone [Flovent HFA] 2 puff INHALATION BID PRN 04/05/14 07/20/18 albuterol sulfate [ProAir HFA] 1 - 2 puff INHALATION Q6H PRN 01/07/17 07/17/18 inhaler amitriptyline 10 mg PO HS 01/07/17 07/20/18 pantoprazole [Protonix] 40 mg PO DAILY packet 01/07/17 07/20/18 valacyclovir 2,000 mg PO BID PRN tab-cap 01/07/17 07/20/18 vardenafil [Levitra] 10 mg PO DAILY PRN tab-cap 01/07/17 07/20/18 naproxen 500 mg PO BID 07/16/18 07/20/18 tramadol 50 mg tablet 50 mg PO Q6H PRN #10 tab 07/17/18 07/20/18 hydrocodone-acetaminophen 1 - 2 tab PO Q4H PRN PRN #20 tab 07/19/18 07/20/18 ondansetron HCl [Zofran] 4 mg PO TID PRN 5 Days #30 tab 07/20/18 tamsulosin [Flomax] 0.4 mg PO DAILY #14 cap 07/20/18 Previous Rx's Medication Instructions Recorded tramadol 50 mg tablet 50 mg PO Q6H PRN #10 tab 07/17/18 hydrocodone-acetaminophen 1 - 2 tab PO Q4H PRN PRN #20 tab 07/19/18 ondansetron HCl [Zofran] 4 mg PO TID PRN 5 Days #30 tab 07/20/18 tamsulosin [Flomax] 0.4 mg PO DAILY #14 cap 07/20/18 Allergies Allergy/AdvReac Type Severity Reaction Status Date / Time No Known Allergies Allergy Unverified 07/17/18 23:30 General FRANKIE: 4 Review of Systems Review of Systems All systems reviewed & are unremarkable except as noted in HPI and below Constitutional Denies chills, Denies fever(s) and Denies weakness Eyes Denies loss of vision ENT Denies change in voice Cardiovascular Denies chest pain and Denies dyspnea Respiratory Denies dyspnea Gastrointestinal Denies abdominal pain, Denies nausea and Denies vomiting Genitourinary Denies dysuria Musculoskeletal Denies joint swelling Integumentary/Breasts Denies rash Neurologic Denies loss of vision and Denies weakness Psychiatric Denies depression Endocrine Denies cold intolerance and Denies heat intolerance Allergic/Immunologic Denies urticaria PFSH Family History Mother Colon cancer Father Myocardial infarction CHF (congestive heart failure) Sister Melanoma Medical History Anxiety Asthma Chronic low back pain Cold sore Depression GERD (gastroesophageal reflux disease) H/O steroid therapy Hemorrhoids, external Kidney stones Knee pain, bilateral Pre-hypertension Wheezing Social History household members: other details: lives alone lives independently: Yes 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 Smoking/Tobacco Use Status: Former Tobacco Use pack-years: 2 alcohol intake: never substance use type: does not use Surgical History H/O blepharoplasty (Acute) History of kidney surgery (Acute) History of testicular surgery (Acute) Exam Const Orientation: alert HENMT Head: normal to inspection Ears: external ears normal General nose exam: external nose normal Mouth: moist mucous membranes Eyes General: appearance normal, both eyes and all related structures Neck Neck: normal visual inspection Resp Effort & Inspection: normal respiratory effort and able to speak in complete sentences Cardio Rate: regular rate Skin General skin exam: no rashes or lesions noted Neuro General: alert and oriented x3 Extrem General: normal to inspection Psych Mental Status: mental status grossly normal
--- NOTE | 2018-07-20 21:19 | ED.GENADUL_ITS ---
Discharge Plan Disposition Patient Disposition: HOME Condition: Stable Discharge Details Chief Complaint: FlankPain Clinical Impression: Kidney stone on right side Reason For Visit: [id number] Primary Care Provider: Alexia Perez ED Provider: Arnold dAam Home Meds and New Rx's Prescriptions: New tamsulosin [Flomax] 0.4 mg capsule 0.4 mg PO DAILY Qty: 14 RF: 0 ondansetron HCl [Zofran] 4 mg tablet 4 mg PO TID PRN (Reason: nausea and vomiting) 5 Days Qty: 30 RF: 0 Continue tramadol 50 mg tablet 50 mg PO Q6H PRN (Reason: pain) Qty: 10 RF: 0 valacyclovir 1,000 MG tablet 2,000 mg PO BID PRN RF: 0 amitriptyline 10 MG tablet 10 mg PO HS RF: 0 albuterol sulfate [ProAir HFA] 8.5 GM HFA aerosol inhaler 1 - 2 puff Inhalation Q6H PRN RF: 0 vardenafil [Levitra] 10 MG tablet 10 mg PO DAILY PRNRF: 0 pantoprazole [Protonix] [address] for susp in packet 40 mg PO DAILY RF: 0 fluticasone [Flovent HFA] 120 PUFF HFA aerosol inhaler 2 puff Inhalation BID PRN RF: 0 naproxen 500 mg Tablet 500 mg PO BID RF: 0 hydrocodone-acetaminophen 5-325 mg Tablet 1 - 2 tab PO Q4H PRN PRNQty: 20 RF: 0 Discharge Instructions Instructions: Kidney Stones (ED) Additional Instructions: take the naprosyn for pain, follow instructions on packaging. If you still need pain relief after this take a hydrocodone if you have fevers or persistent vomit return to the emergency department Discharge Data Discharge Physician: Arnold Adam Medical Decision Making 53 yo male with hx of kidney stones who underwent recent stent placement last week and had to be admitted for pain control and was d/c'd yesterday, comes in with complaints of right sided flank pain since yesterday and nausea. Denies fevers and has no cva tenderness so unlikely pyelo vs infected kidney stone. Will treat his nausea and pain meds and image to eval if he has a recurrent kidney stone labs show no acute pathology, awaiting ua and ct results. Pain is now gone but still has nausea, will order reglan CT shows pleural effusions but has no hypoxia or other symptoms that I feel he requires workup for at this time, is likely mild complication from being intubated and postoperatively, has no chest pain or sob. . Does have a new 2mm stone on the right at the uvj which is likely causing his symptoms. Awaiting ua , pain is well controlled UA shows blood, negative nitrites and denies any dysuria so do not feel abx indicated. Will start flomax and havfe him f/u with Dr. Woods, return precautions given Differential Diagnosis kidney stone, ureteral spasm, ureteral perforation Imaging Data Radiologic Study: Attestation: I personally reviewed and interpreted this imaging study as follows: Imaging: CT Scan Radiologist's impression: IMPRESSION: Bilateral hydronephrosis. Severe on the right and moderate in the left. The appearance suggests some chronicity. No evidence of obstructing stone on the left. This may be a chronic UPJ obstruction. On the right the ureter is dilated but the UVJ stone that was seen on prior study is no longer present. 2 mm nonobstructing stone in the distal right ureter. Moderate right pleural effusion. Small left pleural effusion. Small amount of postinflammatory change in the lung bases, possibly aspiration. Body wall edema. Lab Data Lab results reviewed: Yes I reviewed the patient's lab results. HPI General Mode of arrival: ambulatory . Date/Time Provider Initiated Documentation: 07/20/18 21:04 . Limitations to Documentation: no limitations . Information obtained by: patient . History of Present Illness 53 year old M presents to the emergency department with the chief complaint of right flank pain, described as moderate, with intensity rated at 6. and is localized to the back. Patient reports no radiation. Patient started experiencing this day(s) (1) and it has been intermittent. No relieving factors improve symptom(s), No exacerbating factors reported . Patient notes nausea/vomiting. Related Data Home Medications Medication Instructions Recorded Confirmed fluticasone [Flovent HFA] 2 puff INHALATION BID PRN 04/05/14 07/20/18 albuterol sulfate [ProAir HFA] 1 - 2 puff INHALATION Q6H PRN 01/07/17 07/17/18 inhaler amitriptyline 10 mg PO HS 01/07/17 07/20/18 pantoprazole [Protonix] 40 mg PO DAILY packet 01/07/17 07/20/18 valacyclovir 2,000 mg PO BID PRN tab-cap 01/07/17 07/20/18 vardenafil [Levitra] 10 mg PO DAILY PRN tab-cap 01/07/17 07/20/18 naproxen 500 mg PO BID 07/16/18 07/20/18 tramadol 50 mg tablet 50 mg PO Q6H PRN #10 tab 07/17/18 07/20/18 hydrocodone-acetaminophen 1 - 2 tab PO Q4H PRN PRN #20 tab 07/19/18 07/20/18 ondansetron HCl [Zofran] 4 mg PO TID PRN 5 Days #30 tab 07/20/18 tamsulosin [Flomax] 0.4 mg PO DAILY #14 cap 07/20/18 Previous Rx's Medication Instructions Recorded tramadol 50 mg tablet 50 mg PO Q6H PRN #10 tab 07/17/18 hydrocodone-acetaminophen 1 - 2 tab PO Q4H PRN PRN #20 tab 07/19/18 ondansetron HCl [Zofran] 4 mg PO TID PRN 5 Days #30 tab 07/20/18 tamsulosin [Flomax] 0.4 mg PO DAILY #14 cap 07/20/18 Allergies Allergy/AdvReac Type Severity Reaction Status Date / Time No Known Allergies Allergy Unverified 07/17/18 23:30 General FRANKIE: 4 Review of Systems Review of Systems All systems reviewed & are unremarkable except as noted in HPI and below Constitutional Denies chills, Denies fever(s) and Denies weakness Eyes Denies loss of vision ENT Denies change in voice Cardiovascular Denies chest pain and Denies dyspnea Respiratory Denies dyspnea Gastrointestinal Denies abdominal pain, Denies nausea and Denies vomiting Genitourinary Denies dysuria Musculoskeletal Denies joint swelling Integumentary/Breasts Denies rash Neurologic Denies loss of vision and Denies weakness Psychiatric Denies depression Endocrine Denies cold intolerance and Denies heat intolerance Allergic/Immunologic Denies urticaria PFSH Family History Mother Colon cancer Father Myocardial infarction CHF (congestive heart failure) Sister Melanoma Medical History Anxiety Asthma Chronic low back pain Cold sore Depression GERD (gastroesophageal reflux disease) H/O steroid therapy Hemorrhoids, external Kidney stones Knee pain, bilateral Pre-hypertension Wheezing Social History household members: other details: lives alone lives independently: Yes 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 Smoking/Tobacco Use Status: Former Tobacco Use pack-years: 2 alcohol intake: never substance use type: does not use Surgical History H/O blepharoplasty (Acute) History of kidney surgery (Acute) History of testicular surgery (Acute) Exam Const Orientation: alert HENMT Head: normal to inspection Ears: external ears normal General nose exam: external nose normal Mouth: moist mucous membranes Eyes General: appearance normal, both eyes and all related structures Neck Neck: normal visual inspection Resp Effort & Inspection: normal respiratory effort and able to speak in complete sentences Cardio Rate: regular rate Skin General skin exam: no rashes or lesions noted Neuro General: alert and oriented x3 Extrem General: normal to inspection Psych Mental Status: mental status grossly normal
[2018-07-20] MEDS: Ketorolac 30 MG/ML VIAL 15 MG IVP (21:41)
[2018-07-20] MEDS: Normal Saline 1,000 ML 1000 ML IV (21:41)
[2018-07-20] MEDS: Ondansetron 4 MG/2 ML VIAL IVP (21:43)
[2018-07-20 21:45] LABS: Abs Immature Grans 0.13 k/cumm (0.0-0.09); HCT 35.3 % (40.0-50.0); HGB 12.4 g/dL (13.5-17.5); Mean Corp. HGB Concentration 35.1 g/dL (32.0-36.0); Mean Corpuscular Hemoglobin 31.1 pg (27.0-33.0); Mean Corpuscular Volume 88.5 fL (80-95); Mean Platelet Volume 10.2 fL (8.0-11.0); Platelet Count 259 x1000/uL (130-400); RBC 3.99 m/cumm (4.50-6.00); RBC Distribution Width 13.1 % (11.8-14.1); White Blood Cell Count 13.43 k/cumm (4.4-10.8)
[2018-07-20 21:53] LABS: ALT 27 U/L (12-78); AST 14 U/L (15-37); Albumin 2.8 g/dL (3.4-5.0); Alkaline Phosphatase 124 U/L (46-116); Anion Gap 11.2 mmol/L (3-11); BUN 14 mg/dL (7-18); Bilirubin, Total 1.5 mg/dL (0.2-1.0); CO2 23.8 mmol/L (21.0-32.0); CREATININE 0.97 mg/dL (0.70-1.30); Calcium 8.1 mg/dL (8.5-10.1); Chloride 104 mmol/L (98-107); Glucose 96 mg/dL (70-100); Potassium 3.9 mmol/L (3.5-5.1); Sodium 139 mmol/L (136-145); Total Protein 5.8 g/dL (6.4-8.2)
[2018-07-20 21:57] LABS: Absolute Lymphocyte Count 0.67 k/cumm (1.2-3.4); Absolute Monocyte Count 1.75 k/cumm (0.11-0.7); Absolute Neutrophil Count 11.01 k/cumm (1.2-6.7); Atypical Lymphocytes % 0; Diff Comment Manual Differential; RBC Morphology Normal
--- NOTE | 2018-07-20 22:13 | DI.VRAD_ITS ---
EXAM: CT Abdomen and Pelvis Without Intravenous Contrast CLINICAL HISTORY: 53 years old, male; Pain; Other: Left-sided flank pain TECHNIQUE: Axial computed tomography images of the abdomen and pelvis without intravenous contrast. All CT scans at this facility use at least one of these dose optimization techniques: automated exposure control; mA and/or kV adjustment per patient size (includes targeted exams where dose is matched to clinical indication); or iterative reconstruction. Coronal and sagittal reformatted images were created and reviewed. COMPARISON: CT renal colic wo 07/16/2018 9:15 AM FINDINGS: Lung bases: Small amount of postinflammatory change in the lung bases. Pleural space: Small left pleural effusion. Moderate sized right pleural effusion. ABDOMEN: Liver: Unremarkable. Gallbladder and bile ducts: Unremarkable. No calcified stones. No ductal dilation. Pancreas: Unremarkable. No ductal dilation. Spleen: Unremarkable. No splenomegaly. Adrenals: Unremarkable. No mass. Kidneys and ureters: 5 mm nonobstructing stone in the left kidney. Moderate left-sided hydronephrosis. Left ureter normal in caliber. Severe right-sided hydronephrosis. Right ureter is dilated. 2 mm nonobstructing stone in the distal right ureter. Stomach and bowel: Unremarkable. No obstruction. No mucosal thickening. PELVIS: Appendix: No findings to suggest acute appendicitis. Bladder: Unremarkable. No stones. Reproductive: Left scrotal calcification again noted. ABDOMEN and PELVIS: Intraperitoneal space: Unremarkable. No free air. No significant fluid collection. Bones/joints: No acute fracture. No dislocation. Soft tissues: Body wall edema. Vasculature: Unremarkable. No abdominal aortic aneurysm. Lymph nodes: Unremarkable. No enlarged lymph nodes. IMPRESSION: Bilateral hydronephrosis. Severe on the right and moderate in the left. The appearance suggests some chronicity. No evidence of obstructing stone on the left. This may be a chronic UPJ obstruction. On the right the ureter is dilated but the UVJ stone that was seen on prior study is no longer present. 2 mm nonobstructing stone in the distal right ureter. Moderate right pleural effusion. Small left pleural effusion. Small amount of postinflammatory change in the lung bases, possibly aspiration. Body wall edema. Dictated and Authenticated by: Garcia Mascorro MD. Ordering:OMAR OLIVEIRA MD
[2018-07-20 22:29] LABS: Bilirubin Small (Negative); Blood Moderate (Negative); Clarity Clear; Glucose Negative (Negative); Ketones >=160 mg/dL (Negative); Leukocyte Esterase Trace (Negative); Nitrite Negative (Negative); Specific Gravity 1.025 (1.005-1.025)
[2018-07-20 22:37] LABS: Bacteria Few HPF (Negative); C & S Indicated? Yes; Casts Negative LPF (Negative); Crystals Negative HPF (Negative); Epithelial Cells Rare HPF (Negative); Mucus Negative (Negative); Other Cells Negative (Negative)
[2018-07-20 22:41] VITALS: BP 143/77; PULSE 86; RESP 16; TEMP 37.2; O2SAT 94
[2018-07-20] MEDS: Metoclopramide 10 MG/2 ML VIAL 20 MG IVP (22:44)
[2018-07-20] MEDS: Tamsulosin 0.4 MG CAPCR PO (23:03)
[2018-07-20] MEDS: Ondansetron O.D.T. 4 MG TABEF PO (23:50)
[2018-07-21 00:27] VITALS: BP 143/77; PULSE 86; RESP 16; O2SAT 94
--- NOTE | 2018-07-21 07:56 | PDOC.ERCMPRO ---
Care Management Progress Note 07/21-Dr. 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 Referral faxed to [facility] Urology department this am.
--- NOTE | 2018-07-21 07:57 | CMPROGNOTE_ITS ---
Care Management Progress Note 07/21-Dr. 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 Referral faxed to [facility] Urology department this am.
== END 2018-07-21 00:25 | disposition home or self-care (01) ==
PROVIDERS: Emergency Provider Emergency Medicine; PCP Nurse Practitioner Family
DX: N13.2 Hydronephrosis with renal and ureteral calculous obstruction (principal); Z87.442 Personal history of urinary calculi
CPT/HCPCS: 36415; 80053; 96361; 96374; 96375; 99284; 74176; 81003; 81015; 85025; 87086; 99285; J1885; J2405; J2765

== ENCOUNTER 2018-07-30 09:40 | Outpatient (REF) | payer MEDICAID, SELFPAY ==
[2018-07-30 13:15] LABS: ALT 21 U/L (12-78); AST 16 U/L (15-37); Albumin 3.6 g/dL (3.4-5.0); Alkaline Phosphatase 97 U/L (46-116); Anion Gap 11.5 mmol/L (3-11); BUN 13 mg/dL (7-18); Bilirubin, Total 0.7 mg/dL (0.2-1.0); CO2 27.5 mmol/L (21.0-32.0); CREATININE 0.74 mg/dL (0.70-1.30); Calcium 8.7 mg/dL (8.5-10.1); Chloride 101 mmol/L (98-107); Glucose 101 mg/dL (70-100); NT-proBNP 1078 pg/mL; Potassium 4.5 mmol/L (3.5-5.1); Sodium 140 mmol/L (136-145); Total Protein 6.3 g/dL (6.4-8.2)
== END 2018-07-30 10:00 ==
LOC: NCHCN 09:40
PROVIDERS: PCP Nurse Practitioner Family; Visit Provider Nurse Practitioner Family
DX: R60.0 Localized edema (principal)
CPT/HCPCS: 80053; 83880

== ENCOUNTER 2018-08-08 12:07 | Outpatient (CLI) | payer MEDICAID, SELFPAY ==
--- NOTE | 2018-08-08 13:33 | MERGE_ITS ---
*[facility]* *[facility]* [address] [place] [address] Date of study: 08/08/2018 Transthoracic Echocardiography M-mode, complete 2D, complete spectral Doppler, and color Doppler *STUDY CONCLUSIONS* Summary: 1. Left ventricle: The cavity size was normal. Wall thickness was normal. Systolic function was normal. The estimated ejection fraction was 55-60%. Wall motion was normal; there were no regional wall motion abnormalities. 2. Right ventricle: The cavity size was normal. Wall thickness was normal. Systolic function was normal. 3. Mitral valve: There was moderate regurgitation. 4. Aortic valve: Probably trileaflet; mildly thickened, mildly calcified leaflets. Valve mobility was restricted. Transvalvular velocity was increased. There was mild stenosis. There was mild regurgitation. VTI ratio of LVOT to aortic valve: 0.69. 5. Inferior vena cava: The vessel was normal in size. The respirophasic diameter changes were in the normal range (greater than or equal to 50%), consistent with normal central venous pressure. *PATIENT PRESENTATION* Height: 170.2cm ((67in) ) S/D Pressure: 149 / 72 Weight: 68kg ((149.7lb) ) BSA: 1.8m^2 Test start time: 01:30 PM. Test stop time: 02:15 PM. PERFORMING Unknown PERFORMING [facility] ORDERING Alexia Mirza Aprn REFERRING Alexia Mirza Aprn BLOOD BANK BUSINESS MANAGER Talya Shaw *PROCEDURE DATA* Procedure information: This study was interpreted by [facility]. Pertinent images and digital data are archived for permanent storage and are available for subsequent review. No prior study was available for comparison. Study status: Routine. Transthoracic echocardiography. M-mode, complete 2D, complete spectral Doppler, and color Doppler. A Transthoracic Echocardiogram was performed. Scanning was performed from the parasternal, apical, subcostal, and suprasternal notch acoustic windows. Images were obtained using an [employer] 2000 cardiac ultrasound machine. Image quality was adequate. Study completion: The patient tolerated the procedure well. There were no complications. History: PMH: Edema, ALFARO *CARDIAC ANATOMY* Left ventricle: The cavity size was normal. Wall thickness was normal. Systolic function was normal. The estimated ejection fraction was 55-60%. Wall motion was normal; there were no regional wall motion abnormalities. Findings consistent with diastolic dysfunction. There was no evidence of elevated ventricular filling pressure by Doppler parameters. Aortic valve: Probably trileaflet; mildly thickened, mildly calcified leaflets. Valve mobility was restricted. Doppler: Transvalvular velocity was increased. There was mild stenosis. There was mild regurgitation. VTI ratio of LVOT to aortic valve: 0.69. Valve area (VTI): 2.1cm^2. Indexed valve area (VTI): 1.2cm^2/m^2. Peak velocity ratio of LVOT to aortic valve: 0.61. Valve area (Vmax): 1.9cm^2. Indexed valve area (Vmax): 1.1cm^2/m^2. Mean velocity ratio of LVOT to aortic valve: 0.6. Valve area (Vmean): 1.9cm^2. Indexed valve area (Vmean): 1cm^2/m^2. Mean gradient (S): 8mm Hg. Peak gradient (S): 15.1mm Hg. Aorta: Aortic root: The aortic root was normal in size. Ascending aorta: The ascending aorta was normal in size. Mitral valve: Mildly thickened leaflets. Mobility was not restricted. Doppler: Transvalvular velocity was within the normal range. There was no evidence for stenosis. There was moderate regurgitation. Valve area by pressure half-time: 5.6cm^2. Indexed valve area by pressure half-time: 3.1cm^2/m^2. Peak gradient (D): 2.6mm Hg. Left atrium: The atrium was at the upper limits of normal in size. Right ventricle: The cavity size was normal. Wall thickness was normal. Systolic function was normal. Pulmonic valve: Poorly visualized. Doppler: Transvalvular velocity was within the normal range. There was no evidence for stenosis. There was no significant regurgitation. Tricuspid valve: Structurally normal valve. Doppler: Transvalvular velocity was within the normal range. There was no evidence for stenosis. There was trivial regurgitation. Pulmonary artery: Poorly visualized. Pulmonary systolic pressure was in the range of 30mm Hg to 35mm Hg. Right atrium: The atrium was normal in size. Pericardium: There was no significant pericardial effusion. Systemic veins: Inferior vena cava: The vessel was normal in size. The respirophasic diameter changes were in the normal range (greater than or equal to 50%), consistent with normal central venous pressure. Measurements Left ventricle Value Reference LV ID, ED, PLAX 5.2 cm 3.5 - 6.0 LV ID, ES, PLAX 4.0 cm 2.1 - 4.0 LV PW thickness, ED, PLAX 0.9 cm LV end-diastolic volume, 1-p A2C 81 ml LV ejection fraction, 1-p A2C 52 % LV end-diastolic volume, 1-p A4C 75 ml LV ejection fraction, 1-p A4C 54 % LV e', lateral 0.082 m/sec LV E/e', lateral 10 Ventricular septum Value Reference IVS thickness, ED, PLAX 0.9 cm LVOT Value Reference LVOT ID, A-P 2.0 cm LVOT area 3.1 cm^2 LVOT peak velocity, S 1.18 m/sec LVOT mean velocity, S 0.78 m/sec LVOT VTI, S 24.0 cm LVOT peak gradient, S 5.6 mm Hg LVOT mean gradient, S 2.8 mm Hg Stroke volume (SV), LVOT DP 75 ml Stroke index (SV/bsa), LVOT DP 42 ml/m^2 Aortic valve Value Reference Aortic valve peak velocity, S 1.9 m/sec Aortic valve mean velocity, S 1.29 m/sec Aortic valve VTI, S 35.0 cm Aortic mean gradient, S 8 mm Hg Aortic peak gradient, S 15.1 mm Hg VTI ratio, LVOT/AV 0.69 Aortic valve area, VTI 2.1 cm^2 Velocity ratio, peak, LVOT/AV 0.61 Aortic valve area, peak velocity 1.9 cm^2 Velocity ratio, mean, LVOT/AV 0.6 Aortic valve area, mean velocity 1.9 cm^2 Aortic valve area/bsa, mean velocity 1 cm^2/m^2 Aortic regurg deceleration 478 cm/s^2 Aortic regurg pressure half-time 293 ms Aorta Value Reference Aortic root ID, ED 2.7 cm Ascending aorta ID, A-P, S 2.7 cm Left atrium Value Reference LA ID, A-P, ES 3.8 cm LA ID/bsa, A-P 2.1 cm/m^2 <=2.2 LA area, ES, A4C 17.5 cm^2 8.8 - 23.4 LA area, ES, A2C 21 cm^2 LA volume/bsa, S 35 ml/m^2 LA volume, ES, 2-p 58 ml LA volume/bsa, ES, 2-p 32 ml/m^2 LA/aortic root ratio 1.38 Mitral valve Value Reference Mitral E-wave peak velocity 0.8 m/sec Mitral A-wave peak velocity 0.39 m/sec Mitral deceleration time (L) 137 ms 150 - 230 Mitral pressure half-time 40 ms Mitral peak gradient, D 2.6 mm Hg Mitral E/A ratio, peak 2.05 Mitral valve area, PHT, DP 5.6 cm^2 Tricuspid valve Value Reference Tricuspid regurg peak velocity 2.7 m/sec Tricuspid peak RV-RA gradient 29.6 mm Hg Right atrium Value Reference RA area, ES, A4C 12.8 cm^2 8.3 - 19.5 Legend: (L) and (H) pamela values outside specified reference range. I have personally reviewed the images and have reviewed and edited the reported findings. Electronically signed by Yon Chahal 08/08/2018 15:53
== END 2018-08-08 12:27 ==
PROVIDERS: PCP Nurse Practitioner Family; Visit Provider Nurse Practitioner Family
DX: R06.09 Other forms of dyspnea (principal); R60.9 Edema, unspecified; I34.0 Nonrheumatic mitral (valve) insufficiency; I35.2 Nonrheumatic aortic (valve) stenosis with insufficiency
CPT/HCPCS: 93306

== ENCOUNTER 2018-08-19 15:37 | Outpatient (REF) | payer MEDICAID, SELFPAY ==
[2018-08-19 19:08] LABS: ALT 16 U/L (12-78); AST 10 U/L (15-37); Albumin 3.7 g/dL (3.4-5.0); Alkaline Phosphatase 62 U/L (46-116); Anion Gap 8.7 mmol/L (3-11); BUN 22 mg/dL (7-18); Bilirubin, Total 0.6 mg/dL (0.2-1.0); CO2 28.3 mmol/L (21.0-32.0); CREATININE 1.02 mg/dL (0.70-1.30); Calcium 8.4 mg/dL (8.5-10.1); Chloride 105 mmol/L (98-107); Glucose 100 mg/dL (70-100); NT-proBNP 473 pg/mL; Potassium 3.8 mmol/L (3.5-5.1); Sodium 142 mmol/L (136-145); Total Protein 5.9 g/dL (6.4-8.2)
== END 2018-08-19 15:57 ==
LOC: NCHCN 15:37
PROVIDERS: PCP Nurse Practitioner Family; Visit Provider Nurse Practitioner Family
DX: I50.9 Heart failure, unspecified (principal)
CPT/HCPCS: 80053; 83880

== ENCOUNTER 2018-09-01 00:29 | Outpatient (CLI) | payer MEDICAID, SELFPAY ==
--- NOTE | 2018-09-01 08:35 | DI.US_ITS ---
SYMPTOM/DIAGNOSIS: CALCULUS OF KIDNEY AND URETER, N20.1, N20.0, CHECK FOR RESOLUTION OF RT HYDRONEPHROSIS RENAL ULTRASOUND: Comparison CT scan is 07/16/18 and 07/20/18. The right kidney measures 10.5 cm. long. There has been significant improvement in the right hydronephrosis with minimal prominence of the lower collecting system. No definite nephrolithiasis is seen. There is normal blood flow to the right kidney. The left kidney measures 12.9 cm. long. Note is made of a duplex collecting system with mild dilatation of the left ureter proximally. No definite shadowing stone is seen within the left kidney. The prevoid urinary bladder volume was only 22 cc's. Both ureteral jets were visualized. No definite intraluminal masses are seen. The postvoid urinary bladder volume was 1 cc. Prostate was poorly visualized with estimated volume of 31 cc's. IMPRESSION: 1. Resolution of the right hydronephrosis with only minimal dilatation of the lower pole collecting system. 2. Mild dilatation of the proximal left ureter but significantly improved compared to the CT scan from 07/20/18. 3. 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
== END 2018-09-01 00:49 ==
PROVIDERS: PCP Nurse Practitioner Family; Visit Provider Urology
DX: N20.1 Calculus of ureter (principal); N20.0 Calculus of kidney; N13.4 Hydroureter
CPT/HCPCS: 76770

== ENCOUNTER 2019-09-01 00:43 | Outpatient (CLI) | payer MEDICAID, SELFPAY ==
--- NOTE | 2019-09-01 10:00 | DI.US_ITS ---
EXAM: US RENAL CLINICAL HISTORY: monitor stones N20.0 CALCULUS OF KIDNEY TECHNIQUE: Ultrasound performed using standard protocol. COMPARISON: CT renal colic wo from 07/16/2018 CT renal colic wo from 07/20/2018 Cardiac from 08/08/2018 US renal from 09/01/2018 FINDINGS: The right kidney measures 10.8 centimeters long. There appears to be a duplex renal collecting syste m proximally. No hydronephrosis is present. No nephrolithiasis is seen sonographically. There is b lood flow to the right kidney. The left kidney measures 12 centimeters long. There is a 7 millimeter echogenic shadowing focus in t he lower pole of the left kidney. This is consistent with the patient's known left renal stone. The re is dilatation of the proximal left renal collecting system. This has a similar appearance compare d to the examination from 09/01/2018. The prevoid urinary bladder volume is 29 cc. The bladder was inadequately distended. The postvoid u rinary bladder volume was 8 cc. Ureteral jets were not visualized. The bladder wall thickness was a pproximately 2.4 millimeters. IMPRESSION: 1. 7 millimeter non-obstructing left nephrolithiasis. 2. Stable mild dilatation of the proximal left renal collecting system.
== END 2019-09-01 01:03 ==
PROVIDERS: PCP Nurse Practitioner; Visit Provider Urology
DX: N20.0 Calculus of kidney (principal); N28.89 Other specified disorders of kidney and ureter
CPT/HCPCS: 76770

== ENCOUNTER 2019-09-01 14:30 | Outpatient (CLI) | payer MEDICAID, SELFPAY ==
--- NOTE | 2019-09-01 13:12 | DI.RAD_ITS ---
EXAM: XR KNEE RT 3V AP,LAT,DEL INDICATION: KNEE JT PAIN > 3 MONTHS, RT, M25.561. COMPARISON: No exams were available for comparison TECHNIQUE: 2D digital imaging was performed. FINDINGS: The bones are intact and normally mineralized. The articular surfaces are well maintained. There is a question of thickening of the quadriceps tendon near its insertion onto the patella. This may rep resent tendinopathy/partial tear. Please correlate clinically. If there is continued concern, an MR I of the knee could be obtained for further evaluation.
== END 2019-09-01 14:50 ==
PROVIDERS: PCP Nurse Practitioner; Visit Provider Nurse Practitioner
DX: M25.561 Pain in right knee (principal)
CPT/HCPCS: 73562

== ENCOUNTER 2019-10-30 09:39 | Outpatient (REF) | payer MEDICAID, SELFPAY ==
[2019-10-30 13:18] LABS: HCT 45.5 % (40.0-50.0); HGB 15.6 g/dL (13.5-17.5); Mean Corp. HGB Concentration 34.3 g/dL (32.0-36.0); Mean Corpuscular Hemoglobin 30.1 pg (27.0-33.0); Mean Corpuscular Volume 87.8 fL (80-95); Mean Platelet Volume 9.9 fL (8.0-11.0); Platelet Count 392 x1000/uL (130-400); RBC 5.18 m/cumm (4.50-6.00); RBC Distribution Width 13.2 % (11.8-14.1)
[2019-10-30 14:15] LABS: ALT 23 U/L (16-63); AST 14 U/L (15-37); Albumin 4.3 g/dL (3.4-5.0); Alkaline Phosphatase 75 U/L (46-116); Anion Gap 10.4 mmol/L (3-11); BUN 23 mg/dL (7-18); CO2 29.6 mmol/L (21.0-32.0); CREATININE 0.72 mg/dL (0.70-1.30); Calcium 8.9 mg/dL (8.5-10.1); Chloride 100 mmol/L (98-107); Glucose 91 mg/dL (74-106); Potassium 3.4 mmol/L (3.5-5.1); Sodium 140 mmol/L (136-145); Total Protein 6.8 g/dL (6.4-8.2)
== END 2019-10-30 09:59 ==
LOC: NCHCN 09:39
PROVIDERS: PCP Nurse Practitioner; Visit Provider Nurse Practitioner Family
DX: K62.5 Hemorrhage of anus and rectum (principal); R53.83 Other fatigue
CPT/HCPCS: 80053; 85027

== ENCOUNTER 2021-03-28 11:18 | Outpatient (REF) | payer MEDICAID, SELFPAY ==
[2021-03-28 20:02] LABS: ALT 24 U/L (16-63); AST 15 U/L (15-37); Alkaline Phosphatase 61 U/L (46-116); Anion Gap 12.3 mmol/L (3-11); BUN 24 mg/dL (7-18); Bilirubin, Total 0.8 mg/dL (0.2-1.0); CO2 26.7 mmol/L (21.0-32.0); CREATININE 0.9 mg/dL (0.70-1.30); Calcium 8.4 mg/dL (8.5-10.1); Chloride 103 mmol/L (98-107); Glucose 98 mg/dL (74-106); Potassium 3.5 mmol/L (3.5-5.1); Sodium 142 mmol/L (136-145); Total Protein 6.3 g/dL (6.4-8.2)
== END 2021-03-28 11:19 | disposition home or self-care (01) ==
LOC: NCHCN 11:18
PROVIDERS: PCP Nurse Practitioner; Visit Provider Nurse Practitioner
DX: I10 Essential (primary) hypertension (principal)
CPT/HCPCS: 80053

== ENCOUNTER 2022-01-03 11:09 | Outpatient (REF) | payer MEDICAID, SELFPAY ==
[2022-01-03 16:39] LABS: HCT 44.2 % (40.0-50.0); HGB 14.7 g/dL (13.5-17.5); MCH 30.2 pg (27.0-33.0); MCHC 33.3 % (32.0-36.0); MCV 90.9 fL (80-95); MPV 10.1 fL (8.0-11.0); Platelet Count 361 10^3/uL (130-400); RBC 4.86 10^6/uL (4.36-5.78); RDW 13.2 % (11.8-14.1); RDW-SD 44.2 fL; WBC 7.71 10^3/uL (4.4-10.8)
[2022-01-03 17:12] LABS: ALT 30 U/L (16-63); AST 19 U/L (15-37); Alkaline Phosphatase 102 U/L (46-116); Anion Gap 9.7 mmol/L (3-11); BUN 27 mg/dL (7-18); CO2 26.3 mmol/L (21.0-32.0); CREATININE 0.7 mg/dL (0.70-1.30); Calcium 8.7 mg/dL (8.5-10.1); Calculated LDL 93 mg/dL (<100); Chloride 106 mmol/L (98-107); Cholesterol 157 mg/dL (<200); Glucose 92 mg/dL (74-106); HDL Cholesterol 59 mg/dL (40-60); Potassium 4.7 mmol/L (3.5-5.1); Sodium 142 mmol/L (136-145); Total Protein 6.4 g/dL (6.4-8.2); Triglyceride 27 mg/dL (<150)
== END 2022-01-03 11:10 | disposition home or self-care (01) ==
LOC: NCHCN 11:09
PROVIDERS: PCP Nurse Practitioner; Visit Provider Nurse Practitioner Family
DX: I10 Essential (primary) hypertension (principal); M25.511 Pain in right shoulder; R01.1 Cardiac murmur, unspecified; Z00.00 Encounter for general adult medical examination without abnormal findings
CPT/HCPCS: 80053; 80061; 85027

== ENCOUNTER → 2022-01-08 01:30 | Outpatient (CLI) | payer MEDICAID, SELFPAY ==
--- NOTE | 2022-01-08 09:00 | DI.RAD_ITS ---
Exam(s) XR SHOULDER RT COMPLETE 2+V EXAM: XR SHOULDER RT COMPLETE 2+V CLINICAL HISTORY: CHRONIC PAIN IN RT SHOULDER, M25.511. TECHNIQUE: 2D digital imaging was performed. Five views. COMPARISON: No exams were available for comparison FINDINGS: BONES: No acute fracture is present. No bony destructive lesion is seen. JOINTS: No dislocation present. Mild spurring at the tip of the acromion and glenoid. Mild spurring the greater tuberosity. SOFT TISSUE: Normal. IMPRESSION: Mild degenerative changes. DATA REPOSITORY: RADIATION DOSE DELIVERED:
== END ==
PROVIDERS: PCP Nurse Practitioner; Visit Provider Nurse Practitioner Family
DX: M25.511 Pain in right shoulder (principal); M75.81 Other shoulder lesions, right shoulder; M19.011 Primary osteoarthritis, right shoulder
CPT/HCPCS: 73030

== ENCOUNTER 2022-11-08 01:18 | Outpatient (CLI) | payer MEDICAID, SELFPAY ==
--- NOTE | 2022-11-08 07:30 | DI.US_ITS ---
APPROVED REPORT EXAM: Comprehensive 2D, Doppler, and color-flow Echocardiogram Patient Location: Out-Patient Human Resources Vice President: Talya Shaw RDCS (AE) Indications: cardiac murmur, fatigue Other Information Study Quality: Adequate Conclusion Normal left ventricular wall thickness and chamber size. Estimated ejection fraction is 60 to 65%. Wall motion is normal Normal right ventricular size and systolic function Both atria are normal in size Aortic valve is trileaflet and mildly sclerotic with trace regurgitation Normal mitral valve, mild mitral regurgitation Wall motion Left Ventricle The left ventricle is normal size. The left ventricular systolic function is normal. The left ventric ular ejection fraction is within the normal range. There is normal left ventricular wall thickness. T here is normal LV segmental wall motion. There is no ventricular septal defect visualized. LVEF is 60 -65%. Right Ventricle The right ventricle is normal size. The right ventricular systolic function is normal. Atria The left atrium size is normal. The right atrium size is normal. The interatrial septum is intact wit h no evidence for an atrial septal defect. Aortic Valve The Aortic valve is mildly sclerotic. No hemodynamically significant valvular aortic stenosis. Trace aortic regurgitation. Mitral Valve The mitral valve is normal in structure. No evidence of mitral valve stenosis. Mild mitral regurgitat ion. Tricuspid Valve The tricuspid valve is normal in structure. There is no tricuspid valve stenosis. Trace tricuspid reg urgitation. Unable to assess PA pressure. Pulmonic Valve The pulmonary valve is normal in structure. There is no pulmonic valvular stenosis. Trace pulmonic re gurgitation. Great Vessels The aortic root is normal in size. The ascending aorta is normal in size. Aortic arch is normal in ca liber. IVC is normal in size and collapses >50% with inspiration. Pericardium There is no pericardial effusion. 2D Dimensions IVSD d PLAX 0.92 cm M: 0.6-1.2 LV Vol A2C d MOD 84.8 mL LVPW d PLAX 0.93 cm M: 0.6 - 1.2 LV Vol A4C d MOD 73.3 mL LVID d PLAX 4.73 cm M: 4.2 - 5.8 LA vol/ BSA A2C s A-L 36.6 mL/m2 LVDs 3.05 cm M: 2.5 - 4.0 LA vol/ BSA A4C s A-L 27.4 mL/m2 Ao Root d 2.75 cm M: 3.1 - 3.7 LA Vol/ BSA Biplane s A-L 34.7 mL/m2 RA Area A4C 11.96 cm2 LA Area A4C s MOD 17.28 cm2 RA Vol/ BSA A4C s A-L 15.3 mL/m2 LA Area A2C s MOD 21.83 cm2 Ao Asc Diam d 2.73 cm M: 2.6 - 3.4 LV EF A4C MOD 60.3 % LV EF Teichholz 63.6 % LV EF A2C MOD 65.4 % LVEF (Rosado's) 62.92 % M: 52 - 72 LV EF Biplane MOD 62.9 % LV Volume 62.52 mL M: 62 - 150 SV 50.47 mL LV Volume Index 34.92 mL/m2 M: 34 - 74 SV Index 28.21 mL/m2 LV Vol Biplane MOD 80.2 mL FS 34.50 % M-Mode TAPSE 2.44 cm (M/F) >1.7 LV Diastology MV E' medial 0.097 (>0.07 m/s) E/A Ratio 0.6 LV E/e MED 10.25 (<14) MV E Vmax 0.99 (0.4-1.3 m/s) MV E' lateral 0.115 (>0.1 m/s) MV A Vmax 1.60 (0.4-1.3 m/s) LV E/e LAT 8.60 (<14) MV E/A Ratio 0.60 MV E/E' medial 10.25 MV E/E' lateral 8.62 Aortic Valve LVOT Area 4.06 cm2 AoV Area Vmax 2.32 cm2 LVOT Vmax 1.27 m/s AoV Area/ BSA (Vmax) 1.30 cm2/m2 LVOT Mean Odilon. 0.86 m/s NANCIE Mean Odilon. 2.30 cm2 LVOT Peak Grad 6.5 mmHg NANCIE Mean Odilon. Index 1.28 cm2/m2 LVOT Mean Grad 3.4 mmHg AR DT 1666 msec LVOT VTI 0.260 m AR PHT 483 msec LVOT Diam s 2.25 cm AoV Vmax 2.23 m/s Velocity Ratio 0.57 AoV Mean Odilon. 1.52 m/s AoV Peak Grad 19.9 mmHg LVOT SV 105.66 mL AoV Mean Grad 10.5 mmHg AoV VTI 0.394 m AoV Area VTI 2.68 cm2 AoV Area/ BSA (VTI) 1.50 cm/m2 Mitral Valve MV DT 288 (160-240 msec) MV PHT 84 msec MV Area PHT 2.63 cm2 MV VTI 0.367 m MV Area VTI 2.88 (4.0-6.0 cm2) Pulmonary Valve PV Vmax 1.53 (0.5-1.5 m/s) RVOT Peak Gr. 4.47 mmHg PV Peak Grad 9.4 mmHg RVOT Mean Gr. 2.20 mmHg PV Mean Grad 4.9 mmHg RVOT VTI 0.218 m PV VTI 0.346 m RVOT Vmax 1.06 m/s
== END 2022-11-08 01:38 ==
LOC: DI 01:18
PROVIDERS: PCP Nurse Practitioner; Visit Provider Nurse Practitioner Family
DX: R01.1 Cardiac murmur, unspecified (principal); R53.83 Other fatigue
CPT/HCPCS: 93306

== ENCOUNTER 2022-11-21 01:28 | Outpatient (CLI) | payer MEDICAID, SELFPAY ==
--- NOTE | 2022-11-21 09:36 | DI.RAD_ITS ---
Exam(s) XR KNEE LT 3V AP,LAT,DEL EXAM: XR KNEE LT 3V AP,LAT,DEL CLINICAL HISTORY: LT KNEE PAIN CHRONIC, M25.562, ACUTE ON CHRONIC PAIN, HX OA. TECHNIQUE: 2D digital imaging was performed of the left knee. Three images were obtained. AP, late ral and PA tunnel views were obtained. COMPARISON: None. FINDINGS: BONES: No acute fracture is present. No bony destructive lesion is seen. There is a small enthesophy te of the patella. JOINTS: The knee is normally aligned. No joint effusion is seen. SOFT TISSUE: Normal. IMPRESSION: No acute abnormality. DATA REPOSITORY: RADIATION DOSE DELIVERED:
== END 2022-11-21 01:48 ==
LOC: DI 01:28
PROVIDERS: PCP Nurse Practitioner; Visit Provider Nurse Practitioner Family
DX: M25.562 Pain in left knee (principal); G89.29 Other chronic pain
CPT/HCPCS: 73562

== ENCOUNTER 2023-02-14 08:57 | Outpatient (REF) | payer MEDICAID, SELFPAY ==
[2023-02-15 09:11] LABS: Abs Immature Grans 0.05 10^3/uL (0.0-0.06); Absolute Eosinophil Count 0.12 10^3/uL (0.0-0.7); Absolute Lymphocyte Count 1.82 10^3/uL (1.2-3.4); Absolute Monocyte Count 1.09 10^3/uL (0.1-0.8); Absolute Neutrophil Count 6.97 10^3/uL (1.2-6.7); Eosinophils % 1.2; HCT 42.2 % (40.0-50.0); HGB 14.6 g/dL (13.5-17.5); Immature Grans % 0.5; Lymphocytes % 17.9; MCH 30.5 pg (27.0-33.0); MCHC 34.6 % (32.0-36.0); MCV 88 fL (80-95); MPV 10.1 fL (8.0-11.0); Monocytes % 10.7; Neutrophils % 68.7; Platelet Count 349 10^3/uL (130-400); RBC 4.78 10^6/uL (4.36-5.78); RDW 13.3 % (11.8-14.1); RDW-SD 43.8 fL; WBC 10.15 10^3/uL (4.4-10.8)
[2023-02-15 09:13] LABS: Bilirubin Negative (Negative); Blood Moderate (Negative); Clarity Clear (Clear); Glucose Negative (Negative); Ketones Negative (Negative); Leukocyte Esterase Trace (Negative); Nitrite Negative (Negative); Specific Gravity >= 1.030 (1.005-1.025); Urobilinogen 0.2 mg/dL (Up to 0.2); pH 5.5 (5-8)
[2023-02-15 09:22] LABS: Bacteria Rare HPF (Negative); Crystals Negative HPF (Negative); Epithelial Cells Rare HPF (Negative); Mucus Negative (Negative); WBC 0-2 HPF (0-5)
[2023-02-15 09:23] LABS: C & S Indicated? Yes; Casts 0-2 Hyaline LPF (Negative)
[2023-02-15 09:53] LABS: ALT 19 U/L (16-63); AST 13 U/L (15-37); Albumin 4.1 g/dL (3.4-5.0); Alkaline Phosphatase 82 U/L (46-116); Anion Gap 9.1 mmol/L (3-11); BUN 26 mg/dL (7-18); CO2 24.9 mmol/L (21.0-32.0); CREATININE 0.8 mg/dL (0.70-1.30); Calcium 8.7 mg/dL (8.5-10.1); Chloride 107 mmol/L (98-107); Estimated GFR 103.87 (mL/min/1.73m2); Glucose 93 mg/dL (74-106); Potassium 4.7 mmol/L (3.5-5.1); Sodium 141 mmol/L (136-145); Total Protein 6.5 g/dL (6.4-8.2); Vitamin B12 168 pg/mL (193-986)
[2023-02-15 19:19] LABS: PSA, Screening 1.4 ng/mL (<=3.5)
== END 2023-02-14 08:58 | disposition home or self-care (01) ==
LOC: NCHCN 08:57
PROVIDERS: PCP Nurse Practitioner; Visit Provider Nurse Practitioner Family
DX: I10 Essential (primary) hypertension (principal); R53.83 Other fatigue; G47.20 Circadian rhythm sleep disorder, unspecified type; Z87.442 Personal history of urinary calculi; Z12.5 Encounter for screening for malignant neoplasm of prostate; R35.1 Nocturia; E53.8 Deficiency of other specified B group vitamins
CPT/HCPCS: 80053; 84153; 81003; 81015; 82607; 85025; 87086

== ENCOUNTER 2023-03-27 02:07 | Outpatient (CLI) | payer MEDICAID, SELFPAY ==
--- NOTE | 2023-03-27 | DI.US_ITS ---
Exam(s) US RENAL EXAM: US RENAL CLINICAL HISTORY: GROSS HEMATURIA, R31.0, HX NEPHROLITHIASIS, Z87.442, NOCTURIA, R35.1, BPPV. TECHNIQUE: Beckford scale, color and spectral Doppler were used. COMPARISON: CT CT renal colic wo from 07/20/2018 US US RENAL from 09/01/2019 FINDINGS: Renal size in cm: Right: 10.5. Left: 12.1. Echogenicity: Normal. Hydronephrosis: No. 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 Cyst or mass: No. Nephrolithiasis: There is a 1 cm echogenic focus near the left renal pelvis without evidence of hydro nephrosis. Other findings: None. Bladder:Incompletely distended. This limits evaluation of the urinary bladder. Ureteral jets: Right: Not visualized on this examination. Left: Not visualized on this examination. Prevoid vol:13 cc Postvoid vol:3 cc Prostate: Not visualized on this examination. Delete Renal color flow: Symmetric and within normal limits. IMPRESSION: 1. 1 cm echogenic focus in the left renal pelvis which may represent a stone. A renal colic CT is re commended in this patient for further evaluation. 2. Duplicated right renal collecting system. 3. The urinary bladder cannot be adequately evaluated on this examination due to incomplete preparati on. DATA REPOSITORY:
== END 2023-03-27 02:27 ==
LOC: DI 02:08
PROVIDERS: PCP Nurse Practitioner; Visit Provider Nurse Practitioner Family
DX: R31.0 Gross hematuria (principal); Z87.442 Personal history of urinary calculi; R35.1 Nocturia; R93.41 Abnormal radiologic findings on diagnostic imaging of renal pelvis, ureter, or bladder
CPT/HCPCS: 76770

== ENCOUNTER 2023-04-22 17:42 | Outpatient (REF) | payer MEDICAID, SELFPAY | END 2023-04-22 17:43 | disposition home or self-care (01) | LOC: LBN 17:42 | PROVIDERS: PCP Nurse Practitioner; Visit Provider Nurse Practitioner Family | DX: M79.662 Pain in left lower leg (principal); S80.812A Abrasion, left lower leg, initial encounter; S80.12XA Contusion of left lower leg, initial encounter; L08.89 Other specified local infections of the skin and subcutaneous tissue | CPT/HCPCS: 87070; 87205 ==

== ENCOUNTER 2023-06-10 06:44 | Day surgery (SDC) | payer MEDICAID, SELFPAY ==
[2023-06-10] VITALS (11 sets, daily range): BP systolic 119–156; BP diastolic 51–105; PULSE 68–84; RESP 16–18; TEMP 36.3–37; O2SAT 96–100; BMI 24.5
[2023-06-10] MEDS: Lactated Ringers 1,000 ML 80 ML IV (07:20)
[2023-06-10] MEDS: Sodium Citrate 30 ML CUP PO (07:48)
--- NOTE | 2023-06-10 07:53 | W.ANESPRE ---
General Info Date of Service Date Performed: 06/10/23 Height: 5 ft 7 in Weight: 70.9 kg Body Mass Index (BMI): 24.5 Surgical Procedure: Operation Date: 06/10/23 09:40 Proposed Procedure Side Surgeon p Cystoscopy/Laser/Retrograde/Ureteroscopy/Renal Pelvis Stone Manipulation/ ? Stent Placement Left Farrukh Woods MD Meds Allergies and Home Medications Allergies Allergy/AdvReac Type Severity Reaction Status Date / Time No Known Allergies Allergy Unverified 06/10/23 06:55 Home Medication Medication Instructions Recorded pantoprazole 40 mg granules 40 mg PO DAILY 01/07/17 delayed-release for susp in packet (Protonix) naproxen 500 mg tablet 500 mg PO BID 07/16/18 valacyclovir 1 gram tablet 2,000 mg PO Q12H 11/02/19 acetaminophen 500 mg tablet 1,000 mg PO PRN PRN 06/10/23 Current Visit Medications: Current Medications Generic Name Dose Route Start Last Admin Trade Name Freq PRN Reason Stop Dose Admin Ringer's Solution 1,000 mls @ 80 mls/hr 06/10/23 06:00 06/10/23 07:20 IV 07/07/23 23:59 80 mls/hr INFUSION JOSE Administration Cefazolin Sodium/Dextrose 2 gm in 50 mls @ 100 mls/hr 06/10/23 06:00 Ancef Duplex IVPB 06/10/23 16:00 PREOP JOSE IV Miscellaneous Supplies 1 each 06/10/23 06:00 Iv Access IV 07/07/23 23:59 DIRECTED JOSE Sodium Chloride 0 ml 06/10/23 06:00 Normal Saline Flush 10 Ml Syr IV 07/07/23 23:59 PRN PRN Sodium Chloride 0 ml 06/10/23 06:00 Normal Saline 10 Ml Vial IJ 07/07/23 23:59 DIRECTED PRN Sterile Water 0 ml 06/10/23 06:00 Water,Injection,Sterile 10 Ml Vial IJ 07/07/23 23:59 DIRECTED PRN PFSH Active Problems Active Problems: Problem Status Onset Code Rectal bleed K62.5 Calcific tendinitis of right shoulder M75.31 Medical History Medical History Anxiety Asthma Back pain, chronic Calculus of distal right ureter Chronic low back pain Cold sore Depression Discharge planning issues DVT prophylaxis GERD (gastroesophageal reflux disease) GERD (gastroesophageal reflux disease) H/O steroid therapy Heart murmur Per pt. states had it worked up and its benign, states its nothing to be concerned about Kidney stones Knee pain, bilateral Nephrolithiasis Pre-hypertension Right flank pain Wheezing Surgical History Surgical History H/O blepharoplasty History of kidney surgery History of testicular surgery Tobacco Smoking/Tobacco Use Status: Former Tobacco Use Alcohol Alcohol Intake: never Substance Use Substance use: Never Substance use type: does not use Vital Signs and Lab Results Vital Signs Most Recent Vital Signs in EMR: Most Recent Vital Signs Temp Pulse Resp BP Pulse Ox 36.9 C 84 16 150/78 H 99 06/10/23 06:58 06/10/23 06:58 06/10/23 06:58 06/10/23 06:58 06/10/23 06:58 Lab Results Blood Type / Crossmatch: No Data to Display Complete Blood Count: No Data to Display Complete Metabolic Panel: No Data to Display Liver Function Panel: No Data to Display Coagulation Panel: No Data to Display Cardiac Panel: No Data to Display Arterial Blood Gas: No Data to Display Venous Blood Gas: No Data to Display Pancreas Panel: No Data to Display Thyroid Panel: No Data to Display Infectious Disease: No Data to Display Blood Cultures: No Data to Display Toxicology Panel: No Data to Display Imaging and Studies Imaging and Studies Study information below may be from another EMR and interpreted by another provider. Please see original notes in EMR for more complete details. Echocardiogram Summary: Conclusion Normal left ventricular wall thickness and chamber size. Estimated ejection fraction is 60 to 65%. Wall motion is normal Normal right ventricular size and systolic function Both atria are normal in size Aortic valve is trileaflet and mildly sclerotic with trace regurgitation Normal mitral valve, mild mitral regurgitation 11/08/22 Anesthesia Assessment and Plan Anesthesia History Personal History: No History of Anesthesia Complications Family History: No Family History of Anesthesia Complications Exercise Tolerance Exercise Tolerance: Metabolic Equivalents>4 Cardiac & Pulmonary Exam Cardiac Exam: Normal S1/S2 Heart Sounds Pulmonary Exam: Clear Bilateral Breath Sounds Implantable Cardiac Device Does patient have a Pacemaker or an ICD?: No Airway Exam Known Difficult Airway: No Mallampati Class: 3 Mouth Opening: Narrow (< 3cm) Thyromental Distance: Less than 3 cm Neck Range of Motion: Full ROM Neck Circumference: Normal Teeth Condition: Normal Dentition ASA Classification ASA Score: ASA 2 Emergency Case?: No NPO Status NPO Status: NPO Clears >2 hours, Solids >8 hours Anesthesia Plan Resuscitation Status: Full Code Anesthesia Technique: General Anesthesia Airway Planned: Natural Airway Monitors Used: Standard Monitors
--- NOTE | 2023-06-10 08:14 | W.PM.HP.N ---
Date of service: 06/10/23 Time of Service: 08:15 Assessment and Plan Assessment and plan (1) Kidney stones: (2) Microscopic hematuria: Status: Acute Assessment and plan: We will do cystoscopy and bilateral retrograde pyelogram to complete his hematuria workup. We will be prepared to do flexible ureteroscopy and holmium laser lithotripsy for his left sided stone. History of Present Illness History of Present Illness Chief Complaint: Hematuria Narrative: This is a 58 year old man who has a long history of bilateral kidney stones. He has had extensive surgeries in the past. We have been following a nonobstructing left lower pole stone over the last 4 to 5 years. He is now experiencing gross hematuria, nausea and back pain. His ultrasound shows a stone in the left renal pelvis. He presents for cystoscopy and retrograde pyelogram for evaluation of his gross hematuria. We will plan left ureteroscopy and holmium laser lithotripsy for his left sided stone. Review of Systems Narrative: No fevers or chills No vision change or dysphasia No diabetes or thyroid dysfunction No shortness of breath, cough or hemoptysis No chest pain or palpitations Hx GERD. No hepatitis, ulcers, jaundice No seizures, strokes or peripheral neuropathy No bleeding disorders or anemia No gout PFSH All Active Problems (Updated 06/10/23 @ 08:15 by Farrukh Woods MD) Microscopic hematuria (Acute) Rectal bleed (Acute) Calcific tendinitis of right shoulder (Acute) Medical History (Updated 06/10/23 @ 08:15 by Farrukh Woods MD) Anxiety Asthma Back pain, chronic Calculus of distal right ureter Chronic low back pain Cold sore Depression Discharge planning issues DVT prophylaxis GERD (gastroesophageal reflux disease) GERD (gastroesophageal reflux disease) H/O steroid therapy Heart murmur Per pt. states had it worked up and its benign, states its nothing to be concerned about Kidney stones Knee pain, bilateral Nephrolithiasis Pre-hypertension Right flank pain Wheezing Surgical History H/O blepharoplasty History of kidney surgery History of testicular surgery Family History Mother , at 57 yrs old Colon cancer Father , at 75 yrs old Myocardial infarction CHF (congestive heart failure) Sister , 37 yrs old Melanoma Social History Smoking/Tobacco Use Status: Former Tobacco Use Quit Date: 09/30/17 Pack-years: 2 Smoking risk assessment performed?: Yes Alcohol Intake: never Drug use: Never Substance use type: does not use Household members: other Details: lives alone Housing: house 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 Current gender identity: male Do you feel safe at home: Yes Do you feel safe in your relationship?: Yes Meds Allergies and Home Medications Allergies Allergy/AdvReac Type Severity Reaction Status Date / Time No Known Allergies Allergy Unverified 06/10/23 06:55 Home Medications Medication Instructions Recorded Confirmed Type pantoprazole 40 mg granules 40 mg PO DAILY 01/07/17 06/10/23 History delayed-release for susp in packet (Protonix) naproxen 500 mg tablet 500 mg PO BID 07/16/18 06/10/23 History valacyclovir 1 gram tablet 2,000 mg PO Q12H 11/02/19 06/07/23 History acetaminophen 500 mg tablet 1,000 mg PO PRN PRN 06/10/23 06/10/23 History Exam Const General: cooperative Neck Neck: supple Resp Effort & Inspection: normal respiratory effort Cardio Rate: regular rate Rhythm: regular rhythm GI Palpation: soft and no masses Neuro General: patient alert, patient awake and patient oriented x3 Results Last Vital Signs Temp 36.9 C 06/10/23 06:58 Pulse 84 06/10/23 06:58 Resp 16 06/10/23 06:58 BP 150/78 H 06/10/23 06:58 Pulse Ox 99 06/10/23 06:58 Time Spent Time spent with Patient: <40 minutes Time was spent: other
[2023-06-10] MEDS: ceFAZolin 2 GM/50 ML BAG IVPB (08:52)
[2023-06-10] MEDS: Lidocaine 2% Jelly 6 ML SYR (08:58)
[2023-06-10] MEDS: Omnipaque 300 MG/ML 50 ML BTL (09:10)
--- NOTE | 2023-06-10 10:15 | DI.RAD_ITS ---
Exam(s) XR RETROGRADE IN OR EXAM: XR RETROGRADE IN OR CLINICAL HISTORY: LEFT KIDNEY STONE. TECHNIQUE: Fluoroscopy was provided for the referring physician for guidance with performing retrogr richa procedure. COMPARISON: US US RENAL from 03/27/2023 FINDINGS: Please see procedure note for details. Fluoro time: 1 minutes 10.6 seconds RADIATION DOSE DELIVERED: rick Sheets=10.8 mGy
--- NOTE | 2023-06-10 10:18 | W.PM.DSUDISC ---
Date of service: 06/10/23 Time of Service: 10:18 Discharge Plan Disposition Patient Disposition: Home Condition: Stable Discharge Details Attending Provider: Farrukh Woods Primary Care Provider: PREMA ZHANG Home Meds and New Rx's Prescriptions: No Action valacyclovir 1 gram tablet 2,000 mg PO Q12H Rx Instructions: for 2 doses pantoprazole [Protonix] [address] for susp in packet 40 mg PO DAILY naproxen 500 mg Tablet 500 mg PO BID acetaminophen 500 mg Tablet 1,000 mg PO PRN PRN Discharge Instructions Additional Instructions: no need to strain urine OK to return to work in 24 to 48 hours you have a ureteral stent in place - while it is present it is not unusual to see blood in the urine My office will contact you to arrange followup ureteroscopy and removal of any remaining stone fragments Stand Alone Forms: Anesthesia Discharge Inst., Marion Toribio (DSU) Activity:: Activity as Tolerated Shower/Bathe:: 24 hours Diet:: As Tolerated Discharge Orders Discharge Orders: Discharge Order (Routine); Ordered 06/10/23 Ordered By: Farrukh Woods DS: Diagnosis Discharge Diagnosis (1) Kidney stones: (2) Microscopic hematuria: Status: Acute
--- NOTE | 2023-06-10 10:29 | ROE_ITS ---
Date of service: 06/10/23 Time of Service: 10:29 Operative Note Operative Note DATE OF PROCEDURE: 06/10/23 PRE-OP DIAGNOSIS: Left kidney stone PROCEDURE: Cystoscopy, bilateral retrograde pyelogram, left flexible ureteroscopy with holmium laser lithotripsy of kidney stones, extraction of stone fragments, insert left ureteral stent SURGEON: Farrukh Woods ANESTHESIA TYPE: Local By Surgeon and General LMA/ETT Refer to Anesthesia Record ESTIMATED BLOOD LOSS: 25 COMPLICATIONS: None Patient was transported to: PACU Patient's condition: stable Implants: 6 Slovak by 22 to 30 cm left ureteral stent Indications: This is a 58-year-old gentleman who has a past history of bilateral kidney stones. He is currently having left flank pain and gross hematuria. On evaluation, he was found to have a 1 cm stone in the renal pelvis on ultrasound. He presents for cystoscopy with bilateral retrograde pyelogram to complete his hematuria work-up. We will plan on doing the left ureteroscopy and address any of the stones up in the kidney. Findings: Large stone in the left renal pelvis along with smaller stones within the left lower pole calyces Procedure Description: The patient was brought to the operating room on 06/10/2023. He was given preoperative IV antibiotics. After successful induction of general anesthesia, he was placed in the dorsal lithotomy position. His genitalia was prepped and draped. 2% Xylocaine jelly was instilled into the urethra to act as a local anesthetic. A 22 Slovak rigid cystoscope was passed through the urethra into the bladder. Urethra and bladder were inspected with a 30 degree lens. The pendulous, bulbous and membranous urethra was all appeared normal with no strictures. The prostatic urethra showed some lateral lobe enlargement but no significant median lobe. The bladder neck was entered and the bladder mucosa was inspected. Both ureteral orifices were visualized. No blood was seen coming from either side. Both ureteral orifices were then cannulated with a 5 Slovak access catheter. Retrograde pyelograms were obtained by injecting Omnipaque through the access catheter under fluoroscopic guidance. On the right side, no filling defects were seen along the course of the ureters. The right kidney drained promptly on a drainage film. On the left side, the ureter appeared normal but the renal pelvis showed multiple filling defects. These filling defects persisted on drainage films. I then passed a guidewire through the lumen of the access catheter into the left ureteral orifice. The wire was advanced up the ureter and the access catheter was removed. A dual-lumen catheter was then advanced and a second wire was positioned. We chose one of the wires as a working wire and the second as a safety wire. We passed the ureteral access sheath over the working wire and advanced the sheath into the upper ureter. I passed the disposable flexible ureteroscope through the lumen of the access sheath and maneuvered the scope into the renal pelvis. 2 small stones were seen in the lower pole calyces. The stones were grasped in a 0 tip stone basket and removed. A larger stone was seen in the dependent portion of the renal pelvis. The stone was treated with a 272 ?m holmium laser fiber. We used a power setting of 0.8 and a rate of 8 to fragment the stone. Multiple stone fragments were then extracted using a 0 tip stone basket. All fragments were sent to pathology for chemical analysis. At the completion of the procedure, I believe the large stone had been adequately fragmented, but I am not certain that all stone fragments had been removed. We elected to place a ureteral stent and we will make plans to return to the OR for a repeat ureteroscopy and extraction of any residual stone fragments. I chose a 6 Slovak variable length stent today to advanced over the safety wire. The proximal end of the stent was curled in the renal pelvis. The distal and migrated into the distal ureter, so I used passed a semirigid ureteroscope through the urethra into the bladder. I was able to engage the left ureteral orifice with the scope. I advanced the scope up until the stent was visualized. The end of the stent was then grasped in a Marlyn stone basket and the stent was withdrawn back until the end was within the bladder. The bladder was then emptied. The patient tolerated the procedure well with no complications.
[2023-06-10] MEDS: Phenazopyridine 200 MG TAB PO (11:29)
--- NOTE | 2023-06-10 12:14 | W.ANESPOSTOP ---
Postoperative Evaluation Date, Time and Location Date Performed: 06/10/23 Time Performed: 12:15 Patient Location: Day Surgery Unit Vital Signs Most Recent Imported Vital Signs: Most Recent Vital Signs Temp Pulse Resp BP Pulse Ox 36.3 C L 68 16 133/105 H 100 06/10/23 11:08 06/10/23 11:38 06/10/23 11:38 06/10/23 11:38 06/10/23 11:38 Pain Score Most Recent Pain Score: Most Recent Pain Score Pain Level 0 06/10/23 11:38 Assessment Mental Status: Awake (Alert & Oriented to Patient Baseline) Airway and Respiratory Function: Patent airway with normal (patient baseline) respiratory exam Cardiovascular Function: Hemodynamically Stable Hydration Status: Adequately Hydrated Nausea & Vomiting: No Nausea or Vomiting Pain: Pain is tolerable per patient Peripheral Nerve Block: Patient did not receive a nerve block
[2023-06-10] MEDS: HYDROcodone 5/Acetaminophen 325 TAB PO (13:04)
[2023-06-10] MEDS: HYDROcodone 5/Acetaminophen 325 TAB (15:12)
[2023-06-18 14:31] LABS: Source: Left Kidney
== END 2023-06-10 15:19 | disposition home or self-care (01) ==
PROVIDERS: PCP Nurse Practitioner Family; Visit Provider Urology
PROC: (CPT 52356; principal; 2023-06-10 09:30)
DX: N20.0 Calculus of kidney (principal); R31.29 Other microscopic hematuria
CPT/HCPCS: 52356; 74420; 82365; J0690; J1100; J1885; J2001; J2405; J2704; Q9967

== ENCOUNTER 2023-07-15 11:04 | Observation (INO) | payer MEDICAID, SELFPAY ==
[2023-07-15] VITALS (9 sets, daily range): BP systolic 125–155; BP diastolic 63–80; PULSE 71–85; RESP 14–18; TEMP 36–37; O2SAT 96–100; BMI 24.8
--- NOTE | 2023-07-15 06:45 | DI.RAD_ITS ---
Exam(s) XR RETROGRADE IN OR EXAM: XR RETROGRADE IN OR CLINICAL HISTORY: kidney stone TECHNIQUE: 2D and realtime digital imaging was performed. CONTRAST MATERIAL: Refer to procedure report. COMPARISON: No exams were available for comparison FINDINGS: Fluoroscopy was provided for Dr. Woods during the performance of a renal collecting system evaluatio n. Please refer to the procedure report for complete details. Ka,r=1.82 mGy IMPRESSION: RADIATION DOSE DELIVERED:
--- NOTE | 2023-07-15 06:49 | W.PM.HP.N ---
Date of service: 07/15/23 Time of Service: 06:49 Assessment and Plan Assessment and plan (1) Nephrolithiasis: Assessment and plan: We will remove his ureteral stent and perform a retrograde pyelogram to assess his residual stone burden. We will then run a flexible ureteroscope up to the kidney and extract any residual stone fragments. History of Present Illness History of Present Illness Chief Complaint: Left renal stones Narrative: This is a 58-year-old gentleman who was previously seen with hematuria and left flank pain. He was found to have a 1 cm stone in his left renal pelvis. He was treated with flexible ureteroscopy and holmium laser lithotripsy of his stone. We were able to fragment the stone quite well but I am not certain that we were able to remove all significant stone fragments. A stent was placed. He presents now for stent removal, retrograde pyelogram, flexible ureteroscopy and removal of any residual stone fragments. His original stone analysis shows a composition of 90% calcium oxalate monohydrate and 10% calcium oxalate dihydrate. He had frequency, dysuria and hematuria immediately after his inital procedure. His urination has normalized in the last 10 days or so. Review of Systems Narrative: No fevers or chills No vision change or dysphasia No diabetes or thyroid No shortness of breath, cough or hemoptysis No chest pain or palpitations GERD. No hepatitis, ulcers, jaundice No seizures, strokes or peripheral neuropathy No bleeding disorders or anemia No gout PFSH All Active Problems (Updated 07/15/23 @ 06:56 by Farrukh Woods MD) Microscopic hematuria (Acute) Rectal bleed (Acute) Calcific tendinitis of right shoulder (Acute) Medical History (Updated 07/15/23 @ 06:56 by Farrukh Woods MD) Right flank pain DVT prophylaxis Discharge planning issues Heart murmur Per pt. states had it worked up and its benign, states its nothing to be concerned about GERD (gastroesophageal reflux disease) Anxiety Depression Back pain, chronic Nephrolithiasis Asthma GERD (gastroesophageal reflux disease) H/O steroid therapy Knee pain, bilateral Pre-hypertension Wheezing Kidney stones Chronic low back pain Cold sore Surgical History H/O blepharoplasty History of kidney surgery History of testicular surgery Family History Mother , at 57 yrs old Colon cancer Father , at 75 yrs old Myocardial infarction CHF (congestive heart failure) Sister , 37 yrs old Melanoma Social History Smoking/Tobacco Use Status: Former Tobacco Use Quit Date: 09/30/17 Pack-years: 2 Smoking risk assessment performed?: Yes Alcohol Intake: never Drug use: Never Substance use type: does not use Household members: other Details: lives alone Housing: house 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 Current gender identity: male Do you feel safe at home: Yes Do you feel safe in your relationship?: Yes Meds Allergies and Home Medications Allergies Allergy/AdvReac Type Severity Reaction Status Date / Time No Known Allergies Allergy Unverified 07/15/23 06:59 Home Medications Medication Instructions Recorded Confirmed Type pantoprazole 40 mg granules 40 mg PO DAILY 01/07/17 07/15/23 History delayed-release for susp in packet (Protonix) valacyclovir 1 gram tablet 2,000 mg PO Q12H 11/02/19 07/12/23 History acetaminophen 500 mg tablet 1,000 mg PO PRN PRN 06/10/23 07/15/23 History Exam Const General: cooperative and comfortable Neck Neck: supple Resp Effort & Inspection: normal respiratory effort Auscultation: clear to auscultation bilaterally Cardio Rate: regular rate Rhythm: regular rhythm GI Palpation: soft and no masses Neuro General: patient alert, patient awake and patient oriented x3 Results Labs Labs: RUN DATE: 07/15/23 [facility] PAGE 1 RUN TIME: [id number] RUN USER: [place] [address] Chanelle Mckay MD PATIENT REPORT PATIENT: Dennis Braun LOC: [facility] U #: [id number] /SX: [id number] ROOM: RE06/10/[address]: FARRUKH WOODS MD STATUS: DEP [facility] [place] BED: DIS: SPEC #: [id number] JONELLE: 06/10/23-1014 STATUS: COMP REQ #: [id number] RECD: 06/10/23-[address]: FARRUKH WOODS MD ENTERED: 06/10/23-[address]: PREMA ZHANG OFFICE SECRETARY FAX #: ORDERED: Stone Anaylsis QUERIES: Source: Left Kidney Test Result Flag Reference Verified Kidney Stone Analysis Source: Left Kidney 06/18/23 Interpretation See Comment 06/18/23 90% Calcium oxalate monohydrate. 10% Calcium oxalate dihydrate. Result Comment See Comment 06/18/23 For stones containing calcium oxalate, calcium phosphate, and/or uric acid, a 24 hr urinary supersaturation test may help detect underlying risk factors for this type of stone formation and provide guidance for a stone prevention strategy. ADDITIONAL INFORMATION This test was developed and its performance characteristics determined by [facility] in a manner consistent with CLIA requirements. This test has not been cleared or approved by the U.S. Food and Drug Administration. Test Performed by: [facility] [place] [address] Primary Health Organisation Manager: Sukumar Piper M.D. 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
--- NOTE | 2023-07-15 06:49 | W.ANESPRE ---
General Info Date of Service Date Performed: 07/15/23 Height: 5 ft 7 in Weight: 72 kg Body Mass Index (BMI): 24.8 Surgical Procedure: Operation Date: 07/15/23 07:40 Proposed Procedure Side Surgeon p Cystoscopy/Retrograde/Ureteroscopy w/Removal of Stone Fragments/Removal of Ureteral Stent Left Farrukh Woods MD Meds Allergies and Home Medications Allergies Allergy/AdvReac Type Severity Reaction Status Date / Time No Known Allergies Allergy Unverified 07/15/23 06:59 Home Medication Medication Instructions Recorded pantoprazole 40 mg granules 40 mg PO DAILY 01/07/17 delayed-release for susp in packet (Protonix) valacyclovir 1 gram tablet 2,000 mg PO Q12H 11/02/19 acetaminophen 500 mg tablet 1,000 mg PO PRN PRN 06/10/23 Current Visit Medications: Current Medications Generic Name Dose Route Start Last Admin Trade Name Freq PRN Reason Stop Dose Admin Ringer's Solution 1,000 mls @ 80 mls/hr 07/15/23 06:00 IV 07/15/23 23:59 INFUSION JOSE Cefazolin Sodium/Dextrose 2 gm in 50 mls @ 100 mls/hr 07/15/23 06:00 Ancef Duplex IVPB 07/15/23 23:59 PREOP JOSE IV Miscellaneous Supplies 1 each 07/15/23 06:00 Iv Access IV 07/15/23 23:59 DIRECTED JOSE Sodium Chloride 0 ml 07/15/23 06:00 Normal Saline Flush 10 Ml Syr IV 07/15/23 23:59 PRN PRN Sodium Chloride 0 ml 07/15/23 06:00 Normal Saline 10 Ml Vial IJ 07/15/23 23:59 DIRECTED PRN Sterile Water 0 ml 07/15/23 06:00 Water,Injection,Sterile 10 Ml Vial IJ 07/15/23 23:59 DIRECTED PRN PFSH Active Problems Active Problems: Problem Status Onset Code Microscopic hematuria R31.29 Rectal bleed K62.5 Calcific tendinitis of right shoulder M75.31 Medical History Medical History (Updated 07/15/23 @ 06:56 by Farrukh Woods MD) Right flank pain DVT prophylaxis Discharge planning issues Heart murmur Per pt. states had it worked up and its benign, states its nothing to be concerned about GERD (gastroesophageal reflux disease) Anxiety Depression Back pain, chronic Nephrolithiasis Asthma GERD (gastroesophageal reflux disease) H/O steroid therapy Knee pain, bilateral Pre-hypertension Wheezing Kidney stones Chronic low back pain Cold sore Surgical History Surgical History H/O blepharoplasty History of kidney surgery History of testicular surgery Tobacco Smoking/Tobacco Use Status: Former Tobacco Use Alcohol Alcohol Intake: never Substance Use Substance use: Never Substance use type: does not use Vital Signs and Lab Results Vital Signs Most Recent Vital Signs in EMR: Most Recent Vital Signs Temp Pulse Resp BP Pulse Ox 37.0 C 85 18 146/73 H 100 07/15/23 06:15 07/15/23 06:15 07/15/23 06:15 07/15/23 06:15 07/15/23 06:15 Lab Results Blood Type / Crossmatch: No Data to Display Complete Blood Count: No Data to Display Complete Metabolic Panel: No Data to Display Liver Function Panel: No Data to Display Coagulation Panel: No Data to Display Cardiac Panel: No Data to Display Arterial Blood Gas: No Data to Display Venous Blood Gas: No Data to Display Pancreas Panel: No Data to Display Thyroid Panel: No Data to Display Infectious Disease: No Data to Display Blood Cultures: No Data to Display Toxicology Panel: No Data to Display Imaging and Studies Imaging and Studies Study information below may be from another EMR and interpreted by another provider. Please see original notes in EMR for more complete details. Echocardiogram Summary: Conclusion Normal left ventricular wall thickness and chamber size. Estimated ejection fraction is 60 to 65%. Wall motion is normal Normal right ventricular size and systolic function Both atria are normal in size Aortic valve is trileaflet and mildly sclerotic with trace regurgitation Normal mitral valve, mild mitral regurgitation 11/08/22 Anesthesia Assessment and Plan Anesthesia History Personal History: No History of Anesthesia Complications Family History: No Family History of Anesthesia Complications Exercise Tolerance Exercise Tolerance: Metabolic Equivalents>4 Pertinent Negatives Pertinent Negatives: No Symptoms of GERD Cardiac & Pulmonary Exam Cardiac Exam: Known Innocent Murmur Pulmonary Exam: Clear Bilateral Breath Sounds Implantable Cardiac Device Does patient have a Pacemaker or an ICD?: No Airway Exam Known Difficult Airway: No Mallampati Class: 3 Mouth Opening: Narrow (< 3cm) Thyromental Distance: Less than 3 cm Neck Range of Motion: Full ROM Neck Circumference: Normal Teeth Condition: Normal Dentition ASA Classification ASA Score: ASA 2 Emergency Case?: No NPO Status NPO Status: NPO Clears >2 hours, Solids >8 hours Anesthesia Plan Resuscitation Status: Full Code Anesthesia Technique: General Anesthesia Airway Planned: Natural Airway Monitors Used: Standard Monitors Preoperative Comments:: Previous ANES: GETA with preop bicitra due to active GERD. [place] 3 CL 1 7.5 ETT at 22 at teeth Will assess GERD today to make final plan. 0713 Patient with active GERD: per patient not as bad as last time but still present. remote recruiter Bicitra and will RSI the patient.
[2023-07-15] MEDS: Normal Saline Flush 10 ML SYR IV (06:53)
[2023-07-15] MEDS: Lactated Ringers 1,000 ML 80 ML IV (06:53)
[2023-07-15] MEDS: Sodium Citrate 30 ML CUP PO (07:32)
[2023-07-15] MEDS: ceFAZolin 2 GM/50 ML BAG IVPB (07:44)
--- NOTE | 2023-07-15 09:24 | W.PM.DSUDISC ---
Date of service: 07/15/23 Time of Service: 09:24 Discharge Plan Disposition Patient Disposition: Home Condition: Stable Discharge Details Reason For Visit: ureteroscopy Attending Provider: Farrukh Woods Primary Care Provider: PREMA ZHANG Home Meds and New Rx's Prescriptions: No Action valacyclovir 1 gram tablet 2,000 mg PO Q12H Rx Instructions: for 2 doses pantoprazole [Protonix] [address] for susp in packet 40 mg PO DAILY acetaminophen 500 mg Tablet 1,000 mg PO PRN PRN Discharge Instructions Additional Instructions: no need to strain urine followup @ 6 weeks with renal US prior to appt Activity:: Activity as Tolerated Shower/Bathe:: 24 hours Diet:: As Tolerated Discharge Orders Discharge Orders: Discharge Order (Routine); Ordered 07/15/23 Ordered By: Farrukh Woods DS: Diagnosis Discharge Diagnosis (1) Nephrolithiasis:
--- NOTE | 2023-07-15 09:28 | W.PM.OP ---
Date of service: 07/15/23 Time of Service: 09:28 Operative Note Operative Note DATE OF PROCEDURE: 07/15/23 PRE-OP DIAGNOSIS: Left renal stone POST-OP DIAGNOSIS: same PROCEDURE: cystoscopy, remove left ureteral stent, left retrograde pyelogram, left ureteroscopy with holmium laser lithotripsy of stones, stone extraction SURGEON: Farrukh Woods ANESTHESIA TYPE: General LMA/ETT Refer to Anesthesia Record ESTIMATED BLOOD LOSS: 10 PATHOLOGY: none sent COMPLICATIONS: None Patient was transported to: PACU Patient's condition: stable Implants: none Indications: This is a 58-year-old gentleman who has a past history of kidney stones. He was identified as having a large stone in the left renal pelvis. He was initially treated with ureteroscopy and holmium laser lithotripsy of the stone. Stone fragments were extracted and was shown to be 90% calcium oxalate monohydrate and 10% calcium oxalate dihydrate. Not all stone fragments were removed during the initial procedure, so a stent was placed and he presents now for repeat ureteroscopy with extraction of stone fragments. Findings: multiple stone fragments in left lower pole Procedure Description: The patient was brought to the operating room on 07/15/2023. He was given preoperative IV antibiotics. After successful induction of general anesthesia, he was placed in the dorsal lithotomy position. His genitalia was prepped and draped sterilely. 2% Xylocaine jelly was instilled into the urethra to act as a local anesthetic. A 22 [place]ian rigid cystoscope was passed through the urethra into the bladder. The urethra and bladder were inspected with a 30 degree lens. The pendulous, bulbar and membranous urethra was all appeared normal with no strictures. The prostatic urethra showed some lateral lobe enlargement but no significant median lobe. The bladder neck was entered and the bladder mucosa was inspected. The left ureteral orifice was visualized and a stent could be seen protruding from the orifice. The stent was grasped with alligator forceps and brought out to the level of the urethral meatus. A Glidewire was advanced through the lumen of the stent and the stent was removed leaving the wire in place. The ureteral access catheter was advanced over the wire and the wire was removed. Omnipaque was injected through the access catheter under fluoroscopic guidance in the collecting system and calyces were visualized. The calyces and collecting system are chronically dilated in this patient. The wire was then repositioned and the access catheter was removed. A dual-lumen catheter was then passed over the wire and a second wire was positioned. We chose one of the wires as a working wire and the other as a safety wire. A ureteral access sheath was passed over the working wire leaving the safety wire in place. The flexible ureteroscope was then passed through the lumen of the access sheath and each of the calyces were inspected. In one of the lower pole calyces, a cluster of stone fragments were identified. Some of these fragments were grasped in a 0 tip stone basket and removed. The remainder of the stone fragments were treated with a 272 ?m holmium laser fiber. We used dusting settings with a power of 200 and a rate of 10. The stone fragments were treated until the remaining stone fragments were about the same size as are the laser fiber. The extracted stone fragments were not sent to pathology as we had previous stone analyses. We elected not to replace his ureteral stent as his preop stent had been in place for several weeks preop. The patient tolerated this procedure well with no complications. He was taken to the recovery room in stable condition.
--- NOTE | 2023-07-15 10:56 | W.ANESPOSTOP ---
Postoperative Evaluation Date, Time and Location Date Performed: 07/15/23 Time Performed: 09:42 Patient Location: Day Surgery Unit Vital Signs Most Recent Imported Vital Signs: Most Recent Vital Signs Temp Pulse Resp BP Pulse Ox 36.6 C 74 14 137/63 99 07/15/23 09:49 07/15/23 10:04 07/15/23 10:04 07/15/23 10:04 07/15/23 10:04 Pain Score Most Recent Pain Score: Most Recent Pain Score Pain Level 0 07/15/23 10:04 Assessment Mental Status: Awake (Alert & Oriented to Patient Baseline) Airway and Respiratory Function: Patent airway with normal (patient baseline) respiratory exam Cardiovascular Function: Hemodynamically Stable Hydration Status: Adequately Hydrated Nausea & Vomiting: No Nausea or Vomiting Pain: Pt. Denies Any Pain Peripheral Nerve Block: Patient did not receive a nerve block
[2023-07-15] MEDS: Acetaminophen 325 MG TAB 650 MG PO (13:49)
== END 2023-07-15 14:25 | disposition home or self-care (01) ==
PROVIDERS: Admitting Provider Urology; PCP Nurse Practitioner Family; Visit Provider Urology
PROC: (CPT 52353; principal; 2023-07-15 07:30)
DX: N20.0 Calculus of kidney (principal); K21.9 Gastro-esophageal reflux disease without esophagitis; F41.9 Anxiety disorder, unspecified; F32.A Depression, unspecified; G89.29 Other chronic pain; M54.9 Dorsalgia, unspecified; J45.909 Unspecified asthma, uncomplicated
CPT/HCPCS: 52353; 00123; 74420; J0131; J0690; J1100; J1885; J2001; J2405; J2704

== ENCOUNTER 2023-07-17 02:05 | Emergency (ER) | payer MEDICAID, SELFPAY ==
[2023-07-17] VITALS (13 sets, daily range): BP systolic 131–166; BP diastolic 62–75; PULSE 75–115; RESP 12–22; TEMP 36.7–36.9; O2SAT 96–97
--- NOTE | 2023-07-17 02:00 | DI.CT_ITS ---
Exam(s) CT ABDOMEN PELVIS WO EXAM: CT ABDOMEN PELVIS WO CLINICAL HISTORY: left flank pain after ureter stent removal. TECHNIQUE: Imaging Protocol: Axial computed tomography images with coronal and sagittal reformatted images were created and reviewed. COMPARISON: CT CT renal colic wo from 07/20/2018 US US RENAL from 03/27/2023 XA XR RETROGRADE IN OR from 06/10/2023 XA XR RETROGRADE IN OR from 07/15/2023 FINDINGS: ABDOMEN: Lung Bases: Calcified granuloma in the right lower lobe. Basilar atelectasis and/or scarring. There is a left diaphragmatic hernia containing portions of the spleen in gastric fundus. Liver: Normal density. No measurable mass. Gallbladder and biliary tract: No radiodense calculus or biliary ductal dilation. Pancreas: Normal density, no abnormal calcifications or inflammatory process. Spleen: Normal. Kidneys: Normal size, contour and axis.There is nephrolithiasis in the left kidney. Multiple stones are seen in the mid and lower pole. There is nephrolithiasis on the right kidney. There has been re moval of the left nephroureteral stent. There is a small amount of air seen in the left renal pelvis and adjacent to the left kidney. There is a small amount of perinephric edema seen around the left kidney but no fluid collection is seen. There is dilatation of the left renal pelvis. The left uret er is of normal caliber. There is no evidence of right obstructive uropathy. There is a question of a tiny hyperdensity in the left UPJ (series 2, image 41). However, this is less prominent on the th in slice images (series 3). Adrenal glands: No mass is seen. Lymph nodes: Within normal limits. Abdominal Aorta: Abdominal portion non-dilated. Mild atherosclerosis. PELVIS: Bladder:The bladder is incompletely distended. The fluid in the urinary bladder is isodense to muscl e. Bowel: There are few scattered diverticuli in the colon but no evidence of acute diverticulitis. The re is no evidence of bowel wall thickening or obstruction. There is no evidence of appendicitis. Peritoneal cavity: Postsurgical changes are seen in left pelvis. No ascites is present. No free air . Reproductive organs: There left testicular prosthesis. Bones: Within normal limits for the patient's age. The lucencies of the sacrum are unchanged compare d to the prior examinations. Soft Tissues: Within normal limits. IMPRESSION: 1. Removal of the left nephroureteral stent. Marked dilatation of the left renal pelvis with only mi ld ureteral dilatation. There is a question of a hyperdensity near the left UPJ on the series 2 but is less prominent on the series 3 images. Stone or hematoma cannot be excluded. Please correlate cl inically. 2. Small amount of gas within the left renal collecting system and adjacent to the left kidney which may reflect recent instrumentation. No large perinephric fluid collection is seen. RADIATION DOSE DELIVERED: Total DLP DATA REPOSITORY: All CT scans at this facility are submitted to the National Radiology Data Registry (NRDR) Dose Index Registry (DIR) with the [employer] (ACR). RADIATION OPTIMIZATION: All CT scans at this facility use at least one of these dose optimization te chniques: automated exposure control; mA and/or kV adjustment per patient size (includes targeted exa ms where dose is matched to clinical indication); or iterative reconstruction.
[2023-07-17 02:12] LABS: Abs Immature Grans 0.07 10^3/uL (0.0-0.06); Absolute Eosinophil Count 0.02 10^3/uL (0.0-0.7); Absolute Monocyte Count 1.64 10^3/uL (0.1-0.8); Basophils % 0.2; Eosinophils % 0.1; HCT 40.1 % (40.0-50.0); HGB 13.8 g/dL (13.5-17.5); Immature Grans % 0.4; Lymphocytes % 5.5; MCH 30.7 pg (27.0-33.0); MCHC 34.4 % (32.0-36.0); MCV 89 fL (80-95); MPV 9.4 fL (8.0-11.0); Neutrophils % 83.8; Platelet Count 295 10^3/uL (130-400); RDW 13.2 % (11.8-14.1); RDW-SD 43.3 fL; WBC 16.39 10^3/uL (4.4-10.8)
[2023-07-17] MEDS: Tamsulosin 0.4 MG CAPCR PO (02:15)
[2023-07-17] MEDS: Ondansetron 4 MG/2 ML VIAL IVP ×2 (02:15→07:21)
[2023-07-17] MEDS: Normal Saline 500 ML IV (02:15)
[2023-07-17 02:20] LABS: Absolute Basophil Count 0.03 10^3/uL (0.0-0.2); Absolute Neutrophil Count 13.73 10^3/uL (1.2-6.7)
[2023-07-17 02:25] LABS: Diff Comment Agrees w/ Instrument; RBC Morphology Normal
[2023-07-17 02:28] LABS: ALT 17 U/L (16-63); AST 13 U/L (15-37); Albumin 3.6 g/dL (3.4-5.0); Alkaline Phosphatase 75 U/L (46-116); Anion Gap 7.1 mmol/L (3-11); BUN 26 mg/dL (7-18); Bilirubin, Total 1.1 mg/dL (0.2-1.0); CO2 26.9 mmol/L (21.0-32.0); CREATININE 1.2 mg/dL (0.70-1.30); Calcium 8.6 mg/dL (8.5-10.1); Chloride 101 mmol/L (98-107); Estimated GFR 70.98 (mL/min/1.73m2); Glucose 112 mg/dL (74-106); Potassium 3.4 mmol/L (3.5-5.1); Sodium 135 mmol/L (136-145); Total Protein 6.5 g/dL (6.4-8.2)
--- NOTE | 2023-07-17 02:34 | W.ED.GENAD ---
Discharge Plan Disposition Patient Disposition: Home Discharge Details Chief Complaint: Urinary Clinical Impression: Acute left flank pain, Hydronephrosis of left kidney Primary Care Provider: PREMA ZHANG ED Provider: Alex Barton Home Meds and New Rx's Prescriptions: No Action valacyclovir 1 gram tablet 2,000 mg PO Q12H Rx Instructions: for 2 doses ondansetron HCl 4 mg tablet 4 mg PO Q8H PRN (Reason: nausea and vomiting) Qty: 10 0RF ketorolac 10 mg tablet 10 mg PO Q8H PRN (Reason: pain) Qty: 10 0RF Rx Instructions: do not take with ibuprofen or other NSAIDs hydrocodone-acetaminophen 5-325 mg tablet 1 - 2 tab PO Q4H MDD 10 PRN (Reason: pain) Qty: 30 0RF Rx Instructions: may take along with ibuprofen or ketorolac (not both) but do not take additional tylenol pantoprazole [Protonix] [address] for susp in packet 40 mg PO DAILY naproxen 500 mg tablet 1,000 mg Hold Instructions: on hold for procedure Patient Comments: TAKE ONE TABLET BY MOUTH TWICE A DAY NEEDED Discharge Instructions Instructions: Flank Pain (ED) Additional Instructions: At this time [facility] urology does not see an indication for any emergent procedures Charlie. Please follow-up closely with Dr. Woods's office tomorrow for reassessment and repeat imaging. Please continue to take your nausea medication, and pain medication at home as directed. If you notice any worsening of your symptoms, or any new symptoms such as vomiting, diarrhea, fever, chills, shortness of breath, chest pain, numbness, weakness, or fainting , please return immediately to the emergency department for reevaluation. Please follow up with your primary care provider as soon as possible for reassessment and reevaluation. As always, it was a pleasure participating in your medical care today. Referrals: Farrukh Woods MD [ [facility] STAFF PHYSICIAN] - Medical Decision Making This is a very pleasant 58-year-old male with a past medical history of kidney stones who presents today for evaluation of left flank pain. On 07/15/2023 which was 2 days ago the patient had a large stone in the left renal pelvis, he was treated initially with ureteroscopy and laser lithotripsy, stone fragments were extracted but not all fragments were removed. A stent was placed and stone fragments were removed. Patient had been doing well, however tonight he developed return of his left flank pain radiating down to his groin. He had persistent vomiting with the pain which made him unable to keep down p.o. fluids and pain medication. He presents via EMS for further assessment. He denies any blood in his urine. He denies any fever or chills. No other complaints at this time. Ironically patient had a very similar event 5 years ago when he had a stent placed and stones ablated but then got a stone that was later then stuck bringing about near identical symptoms. Exam demonstrates a male that is notably in discomfort. Notable left CVA tenderness. Concern for repeat stone causing pain. We will get a CT scan, treat his pain, give Flomax, rehydrate, evaluate for infection, monitor closely and reassess. 6:59 AM Laboratory work-up shows a white count of 16, moderate left shift but no bandemia. Electrolytes are stable. Renal function demonstrates creatinine of 1.2 and a GFR of 70 which are slightly worse than normal. Urinalysis shows RBCs but no evidence of infection. CT scan shows evidence of a severe left-sided hydronephrosis but only mild ureterectasis. There is a subtle radiodensity at the ureteropelvic junction which may represent an obstructing hematoma. Patient's pain is notably improved on reassessment. Vital signs stable. We have reached out to Dr. Woods, but have not gotten a call back. We do believe that this is his day off. We will reach out to [facility] for urology discussion. 7:48 AM Discussed the case with Dr. Box from [facility] urology. He reviewed the images, we reviewed all renal lab findings, urinalysis findings, his white blood cell count, and his current clinical status with improved pain. At this time Dr. Box after reviewing the case feels that there is nothing that needs to be done surgically emergently today as long as pain is controlled and there is no evidence of infection on the urinalysis. There is no evidence of infection on the UA, and the patient's pain is controlled. Dr. Box recommends prompt follow-up and repeat imaging tomorrow with the urology clinic here. If the patient's symptoms change or worsen obviously that would necessitate return. At this time the patient's pain remains controlled. He does have pain medications at home. Patient feels comfortable with plan for discharge. Patient will be discharged with close follow-up tomorrow with urology. Discussed red flags for which to return. At this time vital signs are stable, no evidence of pyelonephritis, sepsis or fever. I have extensively reviewed the treatment plan and discharge instructions with the patient. I have addressed all patient concerns at this time. The patient was made aware of what symptoms to monitor for that would warrant a return to the emergency department. Discussed the plan with the patient, they demonstrate verbal understanding and agreement with our assessment and plan at this time. The documentation in this chart was dictated using [employer] dictation software. Please excuse any dictation errors. FINDINGS: Lungs: Minimal dependent atelectasis. 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 Liver: Grossly unremarkable unenhanced liver. Gallbladder and bile ducts: Gallbladder moderately distended. Layering intermediate density in the gallbladder, probably incompletely calcified stones, sludge, or artifact. No biliary dilatation. Pancreas: Grossly unremarkable unenhanced pancreas. Spleen: Grossly unremarkable unenhanced spleen. Adrenal glands: Adrenal glands partially obscured and not well evaluated but not grossly enlarged. Kidneys and ureters: Nonobstructing left renal calculi with clustered stones in the lower pole measuring 8 mm x 10 mm maximum aggregate dimension on image 43 of series 2. Small amount of gas within the left renal collecting system and adjacent to the left kidney. Small amount of perinephric edema/fluid but no large fluid collection. Severe left-sided hydronephrosis. Only mild left-sided ureteral prominence. Subtle density suggested at the ureteropelvic junction on image 41 of series 2. Unusual right renal morphology with an appearance suggesting incomplete developmental rotation. Mild prominence of the right renal collecting system and proximal ureter. Distal right ureter collapsed. No right-sided urinary tract stones Stomach and bowel: No oral contrast. Stomach partially decompressed. No small bowel dilatation to suggest obstruction. Cecum located in the central abdomen suggesting free mobility on an independent mesentery. Moderate retained fecal material in the cecum and proximal ascending colon. Distal ascending colon and transverse colon moderately distended with gas. Downstream colon relatively well evacuated. No evidence of diverticulitis or colitis. Appendix: Normal appendix. Intraperitoneal space: No gross ascites or free air. Vasculature: Normal caliber abdominal aorta. Lymph nodes: No pathologically enlarged mesenteric, retroperitoneal, or pelvic sidewall lymph nodes. Urinary bladder: Normal appearing urinary bladder. Reproductive: Normal-appearing prostate gland and seminal vesicles. Testicular prosthesis on the left. Bones/joints: No acute fracture seen among the bones of the abdomen or pelvis. Spinal degenerative change with anterior osteophytes at multiple levels. Soft tissues: No significant ventral or inguinal hernia. IMPRESSION: 1. Severe left-sided hydronephrosis but only mild ureterectasis. Subtle radiodensity at the ureteropelvic junction measuring approximately 2-3 mm on image 41 of series 2, not well demonstrated at 5 mm slice thickness but possibly an obstructing stone or hematoma. Clinical correlation is recommended. 2. Small amount of gas within the left renal collecting system and within the left perinephric space, probably from recent instrumentation. No large perinephric fluid collection. Thank you for allowing us to participate in the care of your patient. Dictated and Authenticated by: Will Davis MD 07/17/2023 4:58 AM Eastern Time ([place] & [place]) HPI General Date/Time Provider Initiated Documentation: 07/17/23 02:34. HPI Narrative: This is a very pleasant 58-year-old male with a past medical history of kidney stones who presents today for evaluation of left flank pain. On 07/15/2023 which was 2 days ago the patient had a large stone in the left renal pelvis, he was treated initially with ureteroscopy and laser lithotripsy, stone fragments were extracted but not all fragments were removed. A stent was placed and stone fragments were removed. Patient had been doing well, however tonight he developed return of his left flank pain radiating down to his groin. He had persistent vomiting with the pain which made him unable to keep down p.o. fluids and pain medication. He presents via EMS for further assessment. He denies any blood in his urine. He denies any fever or chills. No other complaints at this time. Ironically patient had a very similar event 5 years ago when he had a stent placed and stones ablated but then got a stone that was later then stuck bringing about near identical symptoms. Related Data Home Medications Medication Instructions Recorded Confirmed pantoprazole 40 mg granules 40 mg PO DAILY 01/07/17 07/17/23 delayed-release for susp in packet (Protonix) valacyclovir 1 gram tablet 2,000 mg PO Q12H 11/02/19 07/17/23 hydrocodone 5 mg-acetaminophen 325 1 - 2 tab PO Q4H PRN pain #30 tabs 07/15/23 07/17/23 mg tablet ketorolac 10 mg tablet 10 mg PO Q8H PRN pain #10 tabs 07/15/23 07/17/23 ondansetron HCl 4 mg tablet 4 mg PO Q8H PRN nausea and 07/15/23 07/17/23 vomiting #10 tabs naproxen 500 mg tablet 1,000 mg 07/17/23 Previous Rx's Medication Instructions Recorded hydrocodone 5 mg-acetaminophen 325 1 - 2 tab PO Q4H PRN pain #30 tabs 07/15/23 mg tablet ketorolac 10 mg tablet 10 mg PO Q8H PRN pain #10 tabs 07/15/23 ondansetron HCl 4 mg tablet 4 mg PO Q8H PRN nausea and 07/15/23 vomiting #10 tabs Allergies Allergy/AdvReac Type Severity Reaction Status Date / Time No Known Allergies Allergy Unverified 07/17/23 02:08 General Stated Complaint: Urinary FRANKIE: 3 Review of Systems All systems reviewed & are unremarkable except as noted in HPI and below PFSH All Active Problems (Updated 07/17/23 @ 07:51 by Alex Barton DO) Hydronephrosis of left kidney (Acute) Acute left flank pain (Acute) Microscopic hematuria (Acute) Rectal bleed (Acute) Calcific tendinitis of right shoulder (Acute) Medical History Right flank pain DVT prophylaxis Discharge planning issues Heart murmur Per pt. states had it worked up and its benign, states its nothing to be concerned about GERD (gastroesophageal reflux disease) Anxiety Depression Back pain, chronic Nephrolithiasis Asthma GERD (gastroesophageal reflux disease) H/O steroid therapy Knee pain, bilateral Pre-hypertension Wheezing Kidney stones Chronic low back pain Cold sore Surgical History H/O blepharoplasty History of kidney surgery History of testicular surgery Family History Mother , at 57 yrs old Colon cancer Father , at 75 yrs old Myocardial infarction CHF (congestive heart failure) Sister , 37 yrs old Melanoma Social History Smoking/Tobacco Use Status: Former Tobacco Use Quit Date: 09/30/17 Pack-years: 2 Smoking risk assessment performed?: Yes Alcohol Intake: never Drug use: Never Substance use type: does not use Household members: other Details: lives alone Housing: house 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 3.ENT: Atraumatic external nose and ears. Moist MM. Neck: Symmetric, trachea midline, No thyromegaly. 4.CVS: +S1/S2, No murmurs or gallops. Peripheral pulses 2+ and equal in all extremities. Brisk capillary refill in all extremities. 5.RESP: Unlabored respiratory effort. Clear to auscultation bilaterally. No wheezes rales or rhonchi 6.GI: Soft, Nontender/Nondistended, No hepatosplenomegaly. No guarding or rebound. Mild left CVA tenderness. Genital exam demonstrates unremarkable male genitalia, no bleeding. 7.MSK: Normocephalic/Atraumatic, Extremities w/o deformity or ttp No cyanosis or clubbing, Normal movement of all extremities 8.Skin: Warm, Dry. No rashes or lesions. 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 Sensation grossly intact, no focal neurologic deficits. 10.Psych: (AAO) x3. Appropriate mood and affect Course Vital Signs Vital signs: Vital Signs Temperature 36.7 C 07/17/23 02:00 Pulse 77 07/17/23 02:00 Respiratory Rate 16 07/17/23 02:00 Blood Pressure 161/75 H 07/17/23 02:00 Pulse Oximetry 97 07/17/23 02:00 Temperature 36.7 C 07/17/23 02:00 Temperature Source Oral 07/17/23 02:00 Pulse 77 07/17/23 02:00 Respiratory Rate 16 07/17/23 02:00 Respiratory Effort Normal, Non-Labored 07/17/23 02:05 Blood Pressure 161/75 H 07/17/23 02:00 Blood Pressure Position Supine 07/17/23 02:00 Pulse Oximetry 97 07/17/23 02:00 Oxygen Delivery Method Room Air 07/17/23 02:00 Oxygen Flow Rate 0 07/17/23 02:00 Pain Level 9 07/17/23 02:09 Lab/Test Results Lab/Test Results: Laboratory Tests Range/Units 07/17/23 02:08 WBC (4.4-10.8) 10^3/uL 16.39 H RBC (4.36-5.78) 10^6/uL 4.50 Hgb (13.5-17.5) g/dL 13.8 Hct (40.0-50.0) % 40.1 MCV (80-95) fL 89 MCH (27.0-33.0) pg 30.7 MCHC (32.0-36.0) % 34.4 RDW (11.8-14.1) % 13.2 Plt Count (130-400) 10^3/uL 295 MPV (8.0-11.0) fL 9.4 Immature Gran % 0.4 Neutrophils % 83.8 Lymphocytes % 5.5 Monocytes % 10.0 Eosinophils % 0.1 Basophils % 0.2 Nucleated RBC % (0.0-0.3) % 0.0 Absolute Neutrophils (1.2-6.7) 10^3/uL 13.73 H Absolute Lymphocytes (1.2-3.4) 10^3/uL 0.90 L Absolute Monocytes (0.1-0.8) 10^3/uL 1.64 H Absolute Eosinophils (0.0-0.7) 10^3/uL 0.02 Absolute Basophils (0.0-0.2) 10^3/uL 0.03 RBC Morphology Normal Sodium (136-145) mmol/L 135 L Potassium (3.5-5.1) mmol/L 3.4 L Chloride (98-107) mmol/L 101 Carbon Dioxide (21.0-32.0) mmol/L 26.9 Anion Gap (3-11) mmol/L 7.1 BUN (7-18) mg/dL 26 H Creatinine (0.70-1.30) mg/dL 1.2 Est GFR (CKD-EPI 2020) (mL/min/1.73m2) 70.98 Glucose (74-106) mg/dL 112 H Calcium (8.5-10.1) mg/dL 8.6 Total Bilirubin (0.2-1.0) mg/dL 1.1 H AST (15-37) U/L 13 L ALT (16-63) U/L 17 Alkaline Phosphatase (46-116) U/L 75 Total Protein (6.4-8.2) g/dL 6.5 Albumin (3.4-5.0) g/dL 3.6
--- NOTE | 2023-07-17 04:59 | DI.VRAD_ITS ---
PROCEDURE INFORMATION: Exam: CT Abdomen And Pelvis Without Contrast Exam date and time: 07/17/2023 2:42 AM Age: 58 years old Clinical indication: Abdominal pain; Left; Prior surgery; Surgery date: Post-operative (0-2 days); Surgery type: Lt flank pain after ureter stent removal x yesterday TECHNIQUE: Imaging protocol: Computed tomography of the abdomen and pelvis without contrast. COMPARISON: CT renal colic wo 07/20/2018 9:39 PM FINDINGS: Lungs: Minimal dependent atelectasis. 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 Liver: Grossly unremarkable unenhanced liver. Gallbladder and bile ducts: Gallbladder moderately distended. Layering intermediate density in the gallbladder, probably incompletely calcified stones, sludge, or artifact. No biliary dilatation. Pancreas: Grossly unremarkable unenhanced pancreas. Spleen: Grossly unremarkable unenhanced spleen. Adrenal glands: Adrenal glands partially obscured and not well evaluated but not grossly enlarged. Kidneys and ureters: Nonobstructing left renal calculi with clustered stones in the lower pole measuring 8 mm x 10 mm maximum aggregate dimension on image 43 of series 2. Small amount of gas within the left renal collecting system and adjacent to the left kidney. Small amount of perinephric edema/fluid but no large fluid collection. Severe left-sided hydronephrosis. Only mild left-sided ureteral prominence. Subtle density suggested at the ureteropelvic junction on image 41 of series 2. Unusual right renal morphology with an appearance suggesting incomplete developmental rotation. Mild prominence of the right renal collecting system and proximal ureter. Distal right ureter collapsed. No right-sided urinary tract stones. Stomach and bowel: No oral contrast. Stomach partially decompressed. No small bowel dilatation to suggest obstruction. Cecum located in the central abdomen suggesting free mobility on an independent mesentery. Moderate retained fecal material in the cecum and proximal ascending colon. Distal ascending colon and transverse colon moderately distended with gas. Downstream colon relatively well evacuated. No evidence of diverticulitis or colitis. Appendix: Normal appendix. Intraperitoneal space: No gross ascites or free air. Vasculature: Normal caliber abdominal aorta. Lymph nodes: No pathologically enlarged mesenteric, retroperitoneal, or pelvic sidewall lymph nodes. Urinary bladder: Normal appearing urinary bladder. Reproductive: Normal-appearing prostate gland and seminal vesicles. Testicular prosthesis on the left. Bones/joints: No acute fracture seen among the bones of the abdomen or pelvis. Spinal degenerative change with anterior osteophytes at multiple levels. Soft tissues: No significant ventral or inguinal hernia. IMPRESSION: 1. Severe left-sided hydronephrosis but only mild ureterectasis. Subtle radiodensity at the ureteropelvic junction measuring approximately 2-3 mm on image 41 of series 2, not well demonstrated at 5 mm slice thickness but possibly an obstructing stone or hematoma. Clinical correlation is recommended. 2. Small amount of gas within the left renal collecting system and within the left perinephric space, probably from recent instrumentation. No large perinephric fluid collection. Dictated and Authenticated by: Will Davis MD. Ordering:SARAH Johnson MD
[2023-07-17 06:28] LABS: Bilirubin Negative (Negative); Blood Large (Negative); Clarity Clear (Clear); Glucose Negative (Negative); Ketones 15 mg/dL (Negative); Leukocyte Esterase Negative (Negative); Nitrite Negative (Negative); Specific Gravity >= 1.030 (1.005-1.025); Urobilinogen 0.2 mg/dL (Up to 0.2); pH 5.5 (5-8)
[2023-07-17 06:44] LABS: Bacteria Rare HPF (Negative); Epithelial Cells Rare HPF (Negative); RBC 20-50 HPF (0-2); WBC 0-2 HPF (0-5)
[2023-07-17 06:45] LABS: C & S Indicated? No; Casts Negative LPF (Negative); Crystals Rare Calcium Oxalate HPF (Negative); Mucus Moderate (Negative)
--- NOTE | 2023-07-17 08:00 | NUR.NOTE ---
Appt made with [facility] for Jul 18, @ 1pm with Reanna Nino. Dr. Barton aware. Nursing Note:
--- NOTE | 2023-07-17 08:10 | NUR.NOTE ---
Dr. Woods just called back. I relayed the discharge diagnosis (post procedural hydronephrosis, potential proximal obstruction) and that the patient has an appt tomorrow at 1pm with Reanna Nino in the office. Nursing Note:
--- NOTE | 2023-07-17 08:42 | NUR.NOTE ---
Reanna Nino saw pt in the ED. DSU will call patient for appt tomorrow for stent placement. Nursing Note:
--- NOTE | 2023-07-17 12:23 | UCONE_ITS ---
Date of service: 07/17/23 Time of Service: 08:15 Assessment and Plan Assessment and plan (1) Hydronephrosis of left kidney: Status: Acute Assessment and plan: His CT notes severe left hydronephrosis. Discussed with patient his current condition and imaging results. Recommended that we set him up for stent placement tomorrow (next surgical day available) with Dr. Woods. He expresses understanding. Preop orders were written and given to nursing to coordinate. Day surgery to call patient for time of arrival. He does have nausea and pain medication available to him. If his condition worsens, we asked that he return to the emergency room for further evaluation. Dictation was done by [employer] voice recognition. Errors may be present within the note. A total of 20 minutes was spent reviewing this patient's EMR, [id number] time, and documenting. (2) Acute left flank pain: Status: Acute History of Present Illness Narrative: Dennis is a 58-year-old male with known renal calculi. He presented to the emergency room with left flank pain as well as nausea and vomiting. He was brought to the emergency room by EMS. 2 days ago, 07/15/23, he underwent a second of a staged stone manipulation procedure. Ureteral stent removal and stone manipulation from the left renal pelvis. Stone fragments were extracted and stent was not replaced. The day after the procedure he started develop left flank pain radiating factors to his groin. He also developed persistent vomiting and inability to keep fluids and food down. He denies fevers, chills, dysuria, gross hematuria or suprapubic discomfort. Review of Systems Narrative: See HPI PFSH All Active Problems (Updated 07/17/23 @ 07:51 by Alex Barton DO) Hydronephrosis of left kidney (Acute) Acute left flank pain (Acute) Microscopic hematuria (Acute) Rectal bleed (Acute) Calcific tendinitis of right shoulder (Acute) Medical History Right flank pain DVT prophylaxis Discharge planning issues Heart murmur Per pt. states had it worked up and its benign, states its nothing to be concerned about GERD (gastroesophageal reflux disease) Anxiety Depression Back pain, chronic Nephrolithiasis Asthma GERD (gastroesophageal reflux disease) H/O steroid therapy Knee pain, bilateral Pre-hypertension Wheezing Kidney stones Chronic low back pain Cold sore Surgical History H/O blepharoplasty History of kidney surgery History of testicular surgery Family History Mother , at 57 yrs old Colon cancer Father , at 75 yrs old Myocardial infarction CHF (congestive heart failure) Sister , 37 yrs old Melanoma Social History Smoking/Tobacco Use Status: Former Tobacco Use Quit Date: 09/30/17 Pack-years: 2 Smoking risk assessment performed?: Yes Alcohol Intake: never Drug use: Never Substance use type: does not use Household members: other Details: lives alone Housing: house 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 Current gender identity: male Do you feel safe at home: Yes Do you feel safe in your relationship?: Yes Exam Const Orientation: alert, awake and oriented x3 Eyes Sclera: sclerae normal Resp Effort & Inspection: normal respiratory effort GI Inspection: normal to inspection and non-distended Palpation: soft, no masses and nontender General: CVA tenderness on the left; not on the right Extrem General: full ROM Results Last Vital Signs Temp 98.5 F 07/17/23 08:52 Pulse 89 07/17/23 08:52 Resp 14 07/17/23 08:52 BP 166/73 H 07/17/23 08:52 Pulse Ox 96 07/17/23 08:52 Labs 07/17/23 02:08 07/17/23 02:08 Labs: Laboratory Results - last 24 hr 07/17/23 07/17/23 02:08 06:23 WBC 16.39 H RBC 4.50 Hgb 13.8 Hct 40.1 MCV 89 MCH 30.7 MCHC 34.4 RDW 13.2 Plt Count 295 MPV 9.4 Immature Gran % 0.4 Neutrophils % 83.8 Lymphocytes % 5.5 Monocytes % 10.0 Eosinophils % 0.1 Basophils % 0.2 Nucleated RBC % 0.0 Absolute Neutrophils 13.73 H Absolute Lymphocytes 0.90 L Absolute Monocytes 1.64 H Absolute Eosinophils 0.02 Absolute Basophils 0.03 RBC Morphology Normal Sodium 135 L Potassium 3.4 L Chloride 101 Carbon Dioxide 26.9 Anion Gap 7.1 BUN 26 H Creatinine 1.2 Est GFR (CKD-EPI 2020) 70.98 Glucose 112 H Calcium 8.6 Total Bilirubin 1.1 H AST 13 L ALT 17 Alkaline Phosphatase 75 Total Protein 6.5 Albumin 3.6 Urine Color Yellow Urine Clarity Clear Urine pH 5.5 Ur Specific [place] >= 1.030 H Urine Protein Trace H Urine Ketones 15 H Urine Blood Large H Urine Nitrite Negative Urine Bilirubin Negative Urine Urobilinogen 0.2 Ur Leukocyte Esterase Negative Urine RBC 20-50 H Urine WBC 0-2 Ur Epithelial Cells Rare Urine Crystals Rare Calcium Oxalate Urine Bacteria Rare Urine Casts Negative Urine Mucus Moderate Ur Culture Indicated? No Urine Glucose Negative
== END 2023-07-17 08:50 | disposition home or self-care (01) ==
LOC: ER 10:50
PROVIDERS: Emergency Provider Student in an Organized Health Care Education/Training Program; PCP Nurse Practitioner Family
DX: R10.9 Unspecified abdominal pain (principal); N13.2 Hydronephrosis with renal and ureteral calculous obstruction; Z87.891 Personal history of nicotine dependence
CPT/HCPCS: 36415; 80053; 96361; 96374; 96375; 96376; 99284; 74176; 81003; 81015; 85025; 99283; J2405

== ENCOUNTER 2023-07-18 07:37 | Day surgery (SDC) | payer MEDICAID, SELFPAY ==
--- NOTE | 2023-07-18 06:12 | ANES.PREOP_ITS ---
General Info Date of Service Date Performed: 07/18/23 Height: 5 ft 7 in Weight: 71.3 kg Body Mass Index (BMI): 24.6 Surgical Procedure: Operation Date: 07/18/23 10:25 Proposed Procedure Side Surgeon p Cystoscopy/Retrograde/ Stent Placement Left Farrukh Woods MD Meds Allergies and Home Medications Allergies Allergy/AdvReac Type Severity Reaction Status Date / Time No Known Allergies Allergy Unverified 07/17/23 12:29 Home Medication Medication Instructions Recorded pantoprazole 40 mg granules 40 mg PO DAILY 01/07/17 delayed-release for susp in packet (Protonix) valacyclovir 1 gram tablet 2,000 mg PO Q12H 11/02/19 hydrocodone 5 mg-acetaminophen 325 1 - 2 tab PO Q4H PRN pain #30 tabs 07/15/23 mg tablet ketorolac 10 mg tablet 10 mg PO Q8H PRN pain #10 tabs 07/15/23 ondansetron HCl 4 mg tablet 4 mg PO Q8H PRN nausea and 07/15/23 vomiting #10 tabs naproxen 500 mg tablet 1,000 mg 07/17/23 Current Visit Medications: Current Medications Generic Name Dose Route Start Last Admin Trade Name Freq PRN Reason Stop Dose Admin Ringer's Solution 1,000 mls @ 80 mls/hr 07/18/23 06:00 IV 08/16/23 23:59 INFUSION JOSE Cefazolin Sodium/Dextrose 2 gm in 50 mls @ 100 mls/hr 07/18/23 06:00 Ancef Duplex IVPB 07/18/23 16:00 PREOP JOSE IV Miscellaneous Supplies 1 each 07/18/23 06:00 Iv Access IV 08/16/23 23:59 DIRECTED JOSE Sodium Chloride 0 ml 07/18/23 06:00 Normal Saline Flush 10 Ml Syr IV 08/16/23 23:59 PRN PRN Sodium Chloride 0 ml 07/18/23 06:00 Normal Saline 10 Ml Vial IJ 08/16/23 23:59 DIRECTED PRN Sterile Water 0 ml 07/18/23 06:00 Water,Injection,Sterile 10 Ml Vial IJ 08/16/23 23:59 DIRECTED PRN PFSH Active Problems Active Problems: Problem Status Onset Code Hydronephrosis of left kidney N13.30 Acute left flank pain R10.9 Microscopic hematuria R31.29 Rectal bleed K62.5 Calcific tendinitis of right shoulder M75.31 Medical History Medical History Right flank pain DVT prophylaxis Discharge planning issues Heart murmur Per pt. states had it worked up and its benign, states its nothing to be concerned about GERD (gastroesophageal reflux disease) Anxiety Depression Back pain, chronic Nephrolithiasis Asthma GERD (gastroesophageal reflux disease) H/O steroid therapy Knee pain, bilateral Pre-hypertension Wheezing Kidney stones Chronic low back pain Cold sore Surgical History Surgical History H/O blepharoplasty History of kidney surgery History of testicular surgery Tobacco Smoking/Tobacco Use Status: Former Tobacco Use Alcohol Alcohol Intake: never Substance Use Substance use: Never Substance use type: does not use Vital Signs and Lab Results Lab Results Blood Type / Crossmatch: No Data to Display Complete Blood Count: White Blood Count 16.39 10^3/uL (4.4-10.8) H 07/17/23 02:08 Red Blood Count 4.50 10^6/uL (4.36-5.78) 07/17/23 02:08 Hemoglobin 13.8 g/dL (13.5-17.5) 07/17/23 02:08 Hematocrit 40.1 % (40.0-50.0) 07/17/23 02:08 Platelet Count 295 10^3/uL (130-400) 07/17/23 02:08 Complete Metabolic Panel: Sodium 135 mmol/L (136-145) L 07/17/23 02:08 Potassium 3.4 mmol/L (3.5-5.1) L 07/17/23 02:08 Chloride 101 mmol/L (98-107) 07/17/23 02:08 Carbon Dioxide 26.9 mmol/L (21.0-32.0) 07/17/23 02:08 BUN 26 mg/dL (7-18) H 07/17/23 02:08 Creatinine 1.2 mg/dL (0.70-1.30) 07/17/23 02:08 Est GFR (CKD-EPI 2020) 70.98 (mL/min/1.73m2) 07/17/23 02:08 Calcium 8.6 mg/dL (8.5-10.1) 07/17/23 02:08 Albumin 3.6 g/dL (3.4-5.0) 07/17/23 02:08 Glucose 112 mg/dL (74-106) H 07/17/23 02:08 Liver Function Panel: Alanine Aminotransferase (ALT/SGPT) 17 U/L (16-63) 07/17/23 02: 08 Aspartate Amino Transf (AST/SGOT) 13 U/L (15-37) L 07/17/23 02: 08 Coagulation Panel: No Data to Display Cardiac Panel: No Data to Display Arterial Blood Gas: No Data to Display Venous Blood Gas: No Data to Display Pancreas Panel: No Data to Display Thyroid Panel: No Data to Display Infectious Disease: No Data to Display Blood Cultures: No Data to Display Toxicology Panel: No Data to Display Imaging and Studies Imaging and Studies Study information below may be from another EMR and interpreted by another provider. Please see original notes in EMR for more complete details. Echocardiogram Summary: Conclusion Normal left ventricular wall thickness and chamber size. Estimated ejection fraction is 60 to 65%. Wall motion is normal Normal right ventricular size and systolic function Both atria are normal in size Aortic valve is trileaflet and mildly sclerotic with trace regurgitation Normal mitral valve, mild mitral regurgitation 11/08/22 Anesthesia Assessment and Plan Anesthesia History Personal History: No History of Anesthesia Complications Family History: No Family History of Anesthesia Complications Exercise Tolerance Exercise Tolerance: Metabolic Equivalents>4 Cardiac & Pulmonary Exam Cardiac Exam: Other Pulmonary Exam: Other Implantable Cardiac Device Does patient have a Pacemaker or an ICD?: No Airway Exam Known Difficult Airway: No Mallampati Class: 3 Mouth Opening: Narrow (< 3cm) Thyromental Distance: Less than 3 cm Neck Range of Motion: Full ROM Neck Circumference: Normal Teeth Condition: Normal Dentition ASA Classification ASA Score: ASA 2 Emergency Case?: No NPO Status NPO Status: NPO Clears >2 hours, Solids >8 hours Anesthesia Plan Resuscitation Status: Full Code Anesthesia Technique: General Anesthesia Airway Planned: Endotracheal Tube Monitors Used: Standard Monitors Preoperative Comments:: 58 yo male with hydro for cysto stent removal. Procedure cancelled today, due to no more pain. Sig PMHx: Asthma, GERD (pantoprazole), depression/anxiety, kidney stones, former smoker, Previous ANES: - Cysto, GETA with preop bicitra due to active GERD. [place] 3 grade 2a. - Cysto, glide 3 grade 1 due to GERD. - cysto, fent/midaz prop, natural airway, no issues.
[2023-07-18 08:56] VITALS: BMI 24.6
== END 2023-07-18 07:38 | disposition home or self-care (01) ==
LOC: SUR 07:37
PROVIDERS: PCP Nurse Practitioner Family; Visit Provider Urology
DX: Z53.8 Procedure and treatment not carried out for other reasons
CPT/HCPCS: J1100; J2001; J2405

== ENCOUNTER → 2023-10-04 00:57 | Outpatient (CLI) | payer MEDICAID, SELFPAY ==
--- NOTE | 2023-10-04 08:00 | DI.US_ITS ---
Exam(s) US RENAL EXAM: US RENAL CLINICAL HISTORY: s/p left ureteroscopy for lower pole stone fragment,nephrolithiasis,n20.0. TECHNIQUE: Beckford scale, color and spectral Doppler were used. COMPARISON: CT CT ABDOMEN PELVIS WO from 07/17/2023 FINDINGS: Renal size in cm: Right: 11.2, duplex collecting system again noted. Left: 11.7 cm Echogenicity: Normal Hydronephrosis: No Cyst or mass: No Nephrolithiasis: 9 millimeter stone lower pole left kidney. Bladder:Normal. Prevoid vol:34 cc Postvoid vol:31 cc IMPRESSION: 9 millimeter stone lower pole left kidney. No evidence of hydronephrosis. DATA REPOSITORY:
== END ==
PROVIDERS: PCP Nurse Practitioner Family; Visit Provider Urology
DX: N20.0 Calculus of kidney (principal)
CPT/HCPCS: 76770

== ENCOUNTER 2023-10-11 10:50 | Outpatient (REF) | payer MEDICAID, SELFPAY ==
[2023-10-11 19:55] LABS: COVID-19 PCR Negative (Negative); Influenza A PCR Negative (Negative); Influenza B PCR Negative (Negative)
[2023-10-11 19:59] LABS: RSV PCR Positive (Negative); Source Nasopharynx
== END 2023-10-11 10:51 | disposition home or self-care (01) ==
LOC: LBN 10:50
PROVIDERS: PCP Nurse Practitioner Family; Visit Provider Physician Assistant
DX: R05.8 Other specified cough (principal); R09.89 Other specified symptoms and signs involving the circulatory and respiratory systems; Z20.828 Contact with and (suspected) exposure to other viral communicable diseases
CPT/HCPCS: 87637

== ENCOUNTER 2024-02-19 11:33 | Outpatient (REF) | payer MEDICAID, SELFPAY ==
[2024-02-19 16:16] LABS: ALT 21 U/L (16-63); AST 12 U/L (15-37); Albumin 4.1 g/dL (3.4-5.0); Alkaline Phosphatase 76 U/L (46-116); BUN 32 mg/dL (7-18); Bilirubin, Total 0.8 mg/dL (0.2-1.0); CREATININE 0.8 mg/dL (0.70-1.30); Calcium 8.7 mg/dL (8.5-10.1); Calculated LDL 82 mg/dL (<100); Chloride 106 mmol/L (98-107); Cholesterol 155 mg/dL (<200); Estimated GFR 103.22 (mL/min/1.73m2); Glucose 104 mg/dL (74-106); HDL Cholesterol 65 mg/dL (40-60); Potassium 4.1 mmol/L (3.5-5.1); Sodium 137 mmol/L (136-145); Total Protein 6.6 g/dL (6.4-8.2); Triglyceride 42 mg/dL (<150)
== END 2024-02-19 11:34 | disposition home or self-care (01) ==
LOC: NCHCN 11:33
PROVIDERS: PCP Nurse Practitioner Family; Visit Provider Nurse Practitioner Family
DX: Z00.00 Encounter for general adult medical examination without abnormal findings (principal)
CPT/HCPCS: 80053; 80061

== ENCOUNTER 2024-06-25 08:43 | Emergency (ER) | payer MEDICAID, SELFPAY ==
--- NOTE | 2024-06-25 08:45 | DI.RAD_ITS ---
Exam(s) XR TIB/FIB LT XR ANKLE LT COMPLETE EXAM: XR TIB/FIB LT and XR ankle LT complete CLINICAL HISTORY: cart fell on rayo. TECHNIQUE: 2D digital imaging was performed of the left ankle, tibia and fibula. Five images were ob tained. AP, oblique and lateral views were obtained. COMPARISON: There are no priors for comparison. FINDINGS: BONES: No acute fracture is present. No bony destructive lesion is seen. Visualized portion of knee a nd ankle joints are unremarkable. SOFT TISSUE: There is edema seen in the soft tissues of the lower leg and ankle. No radiopaque forei gn bodies are identified. IMPRESSION: 1. No acute fracture or dislocation. 2. Soft tissue edema seen in the lower extremity. No radiopaque foreign bodies are identified. DATA REPOSITORY: RADIATION DOSE DELIVERED:
[2024-06-25 08:48] VITALS: BP 126/68; PULSE 91; RESP 16; TEMP 36.4; O2SAT 100
--- NOTE | 2024-06-25 09:00 | ED.GENADUL_ITS ---
Discharge Plan Disposition Patient Disposition: Home Condition: Improving Discharge Details Chief Complaint: Orthopedic Clinical Impression: Contusion of leg Primary Care Provider: PREMA ZHANG ED Provider: Franklyn Syed Home Meds and New Rx's Prescriptions: No Action albuterol sulfate 90 mcg/actuation HFA aerosol inhaler 2 puff inhalation Q6H PRN (Reason: shortness of breath or wheezing) Qty: 8.5 0RF (DME) Aerochamber MV Spacer See Rx Instructions .Route Qty: 1 0RF Rx Instructions: As directed pantoprazole [Protonix] [address] for susp in packet 40 mg PO DAILY Discharge Instructions Instructions: Minor Contusion ED Additional Instructions: Please continue to ice elevate and rest the limb, use ibuprofen and/or acetaminophen for pain and swelling. Please return to the emergency department for any worsening symptoms. HPI General Date/Time Provider Initiated Documentation: 06/25/24 08:58 . HPI Narrative: 59-year-old male presents after accidentally slipping while at work piece of equipment fell onto his left rayo, pain to anterior left rayo. Able to ambulate with some discomfort Related Data Home Medications ?Medication ?Instructions ?Recorded ?Confirmed pantoprazole 40 mg granules 40 mg PO DAILY 01/07/17 06/25/24 delayed-release for susp in packet (Protonix) albuterol sulfate 90 mcg/actuation 2 puff inhalation Q6H PRN 09/09/23 06/25/24 aerosol inhaler shortness of breath or wheezing #8.5 grams inhalational spacing device #1 ea 09/09/23 06/25/24 (Aerochamber MV spacer) Previous Rx's ?Medication ?Instructions ?Recorded albuterol sulfate 90 mcg/actuation 2 puff inhalation Q6H PRN 09/09/23 aerosol inhaler shortness of breath or wheezing #8.5 grams inhalational spacing device #1 ea 09/09/23 (Aerochamber MV spacer) Allergies Allergy/AdvReac Type Severity Reaction Status Date / Time No Known Allergies Allergy Unverified 06/25/24 08:47 General Stated Complaint: Orthopedic FRANKIE: 3 Exam Narrative Exam Narrative: Alert oriented No signs of craniofacial trauma No signs of thoracoabdominal trauma Moving all extremities without deficit 5 out of 5 strength upper and lower extremities ambulatory no ataxia Contusion/ecchymosis to left anterior rayo with superficial abrasion hemostatic no foreign body, soft compartments, DP pulse intact, sensate lower extremity, no knee effusion no malleoli or tenderness no calcaneal tenderness Course Vital Signs Vital signs: Vital Signs Temperature 36.4 C L 06/25/24 08:48 Pulse 91 H 06/25/24 08:48 Respiratory Rate 16 06/25/24 08:48 Blood Pressure 126/68 06/25/24 08:48 Pulse Oximetry 100 06/25/24 08:48 Temperature 36.4 C L 06/25/24 08:48 Temperature Source Temporal Artery Scan 06/25/24 08:48 Pulse 91 H 06/25/24 08:48 Respiratory Rate 16 06/25/24 08:48 Respiratory Effort Normal, Non-Labored 06/25/24 08:50 Blood Pressure 126/68 06/25/24 08:48 Blood Pressure Position Sitting 06/25/24 08:48 Pulse Oximetry 100 06/25/24 08:48 Oxygen Delivery Method Room Air 06/25/24 08:48 Oxygen Flow Rate 0 06/25/24 08:48 Pain Level 4 06/25/24 08:48 Comment 7/10 amb, took 1 tyl CONTINUITY PERSON 06/25/24 08:48 Medical Decision Making 59-year-old male presents after accidentally slipping while at work piece of equipment fell onto his left rayo, pain to anterior left rayo. Able to ambulate with some discomfort; neurovascular exam of limb intact, ambulatory, anterior sh in contusion with abrasion hemostatic, consider contusion soft tissue versus bony contusion versus fracture lower suspicion for dislocation. No evidence of joint involvement. Will obtain x-ray tib-fib, x-ray ankle, analgesia close reassessment 9: 58 resting comfortably no acute distress x-ray unremarkable. Patient up-to-date on Tdap. Ambulatory hemodynamically stable neurovascularly intact. Home care instructions and return precautions given Quality:SDOH Health Related Social Needs: No Data to Display PFSH All Active Problems (Updated 06/25/24 @ 09:59 by Franklyn Syed MD) Contusion of leg (Acute) Microscopic hematuria (Acute) Rectal bleed (Acute) Calcific tendinitis of right shoulder (Acute) Medical History Right flank pain DVT prophylaxis Discharge planning issues Heart murmur Per pt. states had it worked up and its benign, states its nothing to be concerned about GERD (gastroesophageal reflux disease) Anxiety Depression Back pain, chronic Nephrolithiasis Asthma GERD (gastroesophageal reflux disease) H/O steroid therapy Knee pain, bilateral Pre-hypertension Wheezing Kidney stones Chronic low back pain Cold sore Surgical History H/O blepharoplasty History of kidney surgery History of testicular surgery Family History Mother , at 57 yrs old Colon cancer Father , at 75 yrs old Myocardial infarction CHF (congestive heart failure) Sister , 37 yrs old Melanoma Social History Smoking/Tobacco Use Status: Former Tobacco Use Quit Date: 09/30/17 Pack-years: 2 Smoking risk assessment performed?: Yes Alcohol Intake: never Drug use: Never Substance use type: does not use Household members: other Details: lives alone Housing: house 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
[2024-06-25] MEDS: Ketorolac 15 MG/ML VIAL IM (09:32)
[2024-06-25 10:06] VITALS: BP 129/74; PULSE 82; RESP 16; O2SAT 100
== END 2024-06-25 10:08 | disposition home or self-care (01) ==
PROVIDERS: Emergency Provider Emergency Medicine; PCP Nurse Practitioner Family
DX: S80.12XA Contusion of left lower leg, initial encounter (principal); Z87.891 Personal history of nicotine dependence; W31.89XA Contact with other specified machinery, initial encounter; Y93.89 Activity, other specified; Y92.89 Other specified places as the place of occurrence of the external cause; Y99.0 Civilian activity done for income or pay
CPT/HCPCS: 96372; 99284; 73590; 73610; 99283; J1885

== ENCOUNTER 2024-06-29 11:47 | Emergency (ER) | payer MEDICAID, SELFPAY ==
[2024-06-29 11:51] VITALS: BP 137/74; PULSE 96; RESP 16; TEMP 36.8; O2SAT 98
--- NOTE | 2024-06-29 12:45 | DI.US_ITS ---
Exam(s) US LOWER EXTREMITY VENOUS LT EXAM: US LOWER EXTREMITY VENOUS LT CLINICAL HISTORY: Contusions, swelling. TECHNIQUE: Lower extremity venous ultrasound performed using grayscale, color-flow, and spectral Do ppler analysis. COMPARISON: No exams were available for comparison FINDINGS: The common femoral, femoral and popliteal veins demonstrate normal compressibility, augmentation, and color Doppler. The posterior tibial and peroneal veins are patent. No saphenous vein thrombosis or other superficial venous thrombosis is seen. No hematoma or Carbone's cyst is seen. IMPRESSION: Negative lower extremity ultrasound. No evidence of DVT. DATA REPOSITORY:
--- NOTE | 2024-06-29 12:49 | W.ED.GENAD ---
Discharge Plan Disposition Patient Disposition: Home Condition: Stable Discharge Details Clinical Impression: Hematoma and contusion Primary Care Provider: PREMA ZHANG ED Provider: Aida Pahn Home Meds and New Rx's Prescriptions: No Action albuterol sulfate 90 mcg/actuation HFA aerosol inhaler 2 puff inhalation Q6H PRN (Reason: shortness of breath or wheezing) Qty: 8.5 0RF (DME) Aerochamber MV Spacer See Rx Instructions .Route Qty: 1 0RF Rx Instructions: As directed pantoprazole [Protonix] [address] for susp in packet 40 mg PO DAILY naproxen 500 mg tablet Patient Comments: TAKE ONE TABLET BY MOUTH TWICE A DAY NEEDED Discharge Instructions Instructions: Taking care of bruises Additional Instructions: Keep wrapped with the Carlito wrap as done previously, elevate when sitting or laying down. Apply ice 3 times daily. No evidence of blood clot or problems with the blood flow to your lower extremity. Please take Tylenol or Ibuprofen with food every 4-6 hours as needed for pain and swelling. Follow up with primary care provider in 3-5 days. Return to ED sooner if any worsening or concerns. Referrals: PREMA ZHANG, CUSTODY ASSISTANT [Primary Care Provider] - 3 days HPI General Mode of arrival: ambulatory. Date/Time Provider Initiated Documentation: 06/29/24 11:56. Limitations to Documentation: no limitations. Information obtained by: patient, RN notes reviewed and old records reviewed. HPI Narrative: 59-year-old male presents to the ER with a chief complaint of recheck of his left lower extremity after a hand cart fell onto his leg approximately 1 week ago. Patient was seen at urgent care prior to arrival and referred here. Patient does have contusions and ecchymosis noted to his left lower extremity which seems to be traveling up his rayo with surrounding blood blisters that have been draining. He denies any numbness in his foot or problems with blood circulation. Dorsal pedal pulses are palpable. Some swelling but nothing significant. Related Data Home Medications ?Medication ?Instructions ?Recorded ?Confirmed pantoprazole 40 mg granules 40 mg PO DAILY 01/07/17 06/29/24 delayed-release for susp in packet (Protonix) albuterol sulfate 90 mcg/actuation 2 puff inhalation Q6H PRN 09/09/23 06/29/24 aerosol inhaler shortness of breath or wheezing #8.5 grams inhalational spacing device #1 ea 09/09/23 06/25/24 (Aerochamber MV spacer) naproxen 500 mg tablet mg 06/29/24 Previous Rx's ?Medication ?Instructions ?Recorded albuterol sulfate 90 mcg/actuation 2 puff inhalation Q6H PRN 09/09/23 aerosol inhaler shortness of breath or wheezing #8.5 grams inhalational spacing device #1 ea 09/09/23 (Aerochamber MV spacer) Allergies Allergy/AdvReac Type Severity Reaction Status Date / Time No Known Allergies Allergy Unverified 06/29/24 11:56 General Stated Complaint: Recheck FRANKIE: 4 Exam Extrem Upper/lower leg/hip images: 1. Contusion ecchymosis 2. Large blood blister 3. Smaller blisters Course Vital Signs Vital signs: Vital Signs Temperature 36.8 C 06/29/24 11:51 Pulse 96 H 06/29/24 11:51 Respiratory Rate 16 06/29/24 11:51 Blood Pressure 137/74 06/29/24 11:51 Pulse Oximetry 98 06/29/24 11:51 Temperature 36.8 C 06/29/24 11:51 Temperature Source Tympanic 06/29/24 11:51 Pulse 96 H 06/29/24 11:51 Respiratory Rate 16 06/29/24 11:51 Blood Pressure 137/74 06/29/24 11:51 Blood Pressure Position Sitting 06/29/24 11:51 Pulse Oximetry 98 06/29/24 11:51 Oxygen Delivery Method Room Air 06/29/24 11:51 Oxygen Flow Rate 0 06/29/24 11:51 Pain Level 1 06/29/24 11:51 Medical Decision Making 59-year-old male presents to the ER with a chief complaint of recheck of his left lower extremity after a hand cart fell onto his leg approximately 1 week ago. Patient was seen at urgent care prior to arrival and referred here. Patient does have contusions and ecchymosis noted to his left lower extremity which seems to be traveling up his rayo with surrounding blood blisters that have been draining. He denies any numbness in his foot or problems with blood circulation. Dorsal pedal pulses are palpable. Some swelling but nothing significant. Clinical presentation is not consistent with compartment syndrome. Distal pulses intact, denies any numbness tingling or cool foot. Denies any significant pain or tenderness. Venous Doppler ordered to rule out DVT. Differential diagnose includes but not limited to hematoma, contusion, DVT. Negative for DVT. Will reapply compression bandage, instruct on RICE procedures and keeping it elevated with ice pack. Referred to PCP for further evaluation and treatment and discussed tricked return instructions. This text was generated using [employer] dictation system, please disregard any oddities of phrase or misspellings. Medical Records Medical records reviewed: Yes I reviewed the patient's medical records. Imaging Data Radiologic Study: Imaging: Ultrasound Radiologist's impression: EXAM: US LOWER EXTREMITY VENOUS LT CLINICAL HISTORY: Contusions, swelling. TECHNIQUE: Lower extremity venous ultrasound performed using grayscale, color-flow, and spectral Doppler analysis. COMPARISON: No exams were available for comparison FINDINGS: The common femoral, femoral and popliteal veins demonstrate normal compressibility, augmentation, and color Doppler. The posterior tibial and peroneal veins are patent. No saphenous vein thrombosis or other superficial venous thrombosis is seen. No hematoma or Carbone's cyst is seen. IMPRESSION: Negative lower extremity ultrasound. No evidence of DVT. Quality:SDPR Health Related Social Needs: No Data to Display PFSH All Active Problems (Updated 06/29/24 @ 14:06 by Aida Phan NP) Hematoma and contusion (Acute) Contusion of leg (Acute) Microscopic hematuria (Acute) Rectal bleed (Acute) Calcific tendinitis of right shoulder (Acute) Medical History Right flank pain DVT prophylaxis Discharge planning issues Heart murmur Per pt. states had it worked up and its benign, states its nothing to be concerned about GERD (gastroesophageal reflux disease) Anxiety Depression Back pain, chronic Nephrolithiasis Asthma GERD (gastroesophageal reflux disease) H/O steroid therapy Knee pain, bilateral Pre-hypertension Wheezing Kidney stones Chronic low back pain Cold sore Surgical History H/O blepharoplasty History of kidney surgery History of testicular surgery Family History Mother , at 57 yrs old Colon cancer Father , at 75 yrs old Myocardial infarction CHF (congestive heart failure) Sister , 37 yrs old Melanoma Social History Smoking/Tobacco Use Status: Former Tobacco Use Quit Date: 09/30/17 Pack-years: 2 Smoking risk assessment performed?: Yes Alcohol Intake: never Drug use: Never Substance use type: does not use Household members: other Details: lives alone Housing: house 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
== END 2024-06-29 15:45 | disposition home or self-care (01) ==
PROVIDERS: Emergency Provider Registered Nurse Emergency; PCP Nurse Practitioner Family
DX: S80.12XA Contusion of left lower leg, initial encounter (principal); Z87.891 Personal history of nicotine dependence; W20.8XXA Other cause of strike by thrown, projected or falling object, initial encounter
CPT/HCPCS: 99284; 93971; 99283

== ENCOUNTER 2025-04-21 15:42 | Outpatient (REF) | payer MEDICAID, SELFPAY ==
[2025-04-21 17:26] LABS: Anion Gap 8.4 mmol/L (3-11); BUN 22 mg/dL (7-18); CO2 27.6 mmol/L (21.0-32.0); Calcium 8.9 mg/dL (8.5-10.1); Chloride 105 mmol/L (98-107); Estimated GFR 106.80 (mL/min/1.73m2); Glucose 99 mg/dL (74-106); Potassium 4.6 mmol/L (3.5-5.1); Sodium 141 mmol/L (136-145)
[2025-04-22 19:26] LABS: PSA, Screening 1.4 ng/mL (<=3.5)
[2025-04-22 20:11] LABS: Hepatitis C Ab w Rflx HCV PCR Negative (Negative)
== END 2025-04-21 15:43 | disposition home or self-care (01) ==
LOC: NCHCN 15:42
PROVIDERS: PCP Nurse Practitioner Family; Visit Provider Nurse Practitioner Family
DX: Z00.00 Encounter for general adult medical examination without abnormal findings (principal); Z13.1 Encounter for screening for diabetes mellitus; Z11.59 Encounter for screening for other viral diseases; Z12.5 Encounter for screening for malignant neoplasm of prostate
CPT/HCPCS: 80048; 84153; 86803